=== PATIENT | female | born 1945 | race Caucasian/White ===

== ENCOUNTER 2018-08-07 19:47 | Inpatient (IN) | payer MEDICAID ==
[~2018-08-07] VITALS: Ht 149.9 cm; Wt 95.5 kg
[2018-08-07] MEDS ORDERED: FUROSEMIDE 40 MG INJ IV STA (19:51)
[2018-08-07] MEDS ORDERED: NITROGLYCERIN 2% 1 GM OINT PKT TD STA (19:51)
[2018-08-07] MEDS ORDERED: ALBUTEROL 0.083% (NEB) 2.5 MG/3 ML AMP HHN STA (19:51)
[2018-08-07] MEDS ORDERED: ASPIRIN 81 MG TAB PO STA (19:51)
[2018-08-07 19:57] VITALS: Ht 149.9 cm; Wt 95.5 kg
[2018-08-07] MEDS ORDERED: IPRATROPIUM (NEB) 0.5 MG/2.5 ML AMP HHN ONE (20:00)
[2018-08-07] MEDS ORDERED: NITROGLYCERIN (SL) 0.4 MG TAB SL PRN (20:00)
--- NOTE | 2018-08-07 22:57 | ERD ---
ER Documentation Chief Complaint Chief Complaint SOB progrossing since last night, severe x 15 min, 88% on 2L, 100% w/ HHN HPI Patient is a 72-year-old female with mental retardation, CHF, hypertension, and diabetes who presents with shortness of breath. Please note the history and physical exam is limited secondary to the patient's mental retardation. The patient was brought in by ambulance. She has had 1 hour of sudden onset shortness of breath. She said trouble breathing and has been wheezing. She was given albuterol by paramedics and her oxygen saturation went from 80% to 97%. She was having shortness of breath with minimal exertion as well. She takes Lasix. Upon review of old medical records this is the patient's first visit to the emergency department at [facility]. She does have a primary doctor. ROS All systems reviewed and are negative except as per history of present illness. Allergies Allergies: Coded Allergies: No Known Allergy (Unverified , 08/07/18) PMhx/Soc Positive for MR, CHF, hypertension, and diabetes FmHx Family History: diabetes Physical Exam Vitals Vital Signs Date Temp Pulse Resp B/P (MAP) Pulse Ox O2 O2 Flow FiO2 Time Delivery Rate 08/07/18 40 21:01 08/07/18 120 100 100 20:07 08/07/18 98.0 133 33 137/84 100 19:57 (101) Physical Exam Const: Severe distress Head: Atraumatic Eyes: Normal Conjunctiva ENT: Normal External Ears, Nose and Mouth. Neck: Full range of motion. No meningismus. Resp: Tachypnea with accessory muscle use of belly breathing Cardio: Tachycardic rate without murmur Abd: Soft, non tender, non distended. Normal bowel sounds Skin: No petechiae or rashes Back: No midline or flank tenderness Ext: Pitting edema bilateral lower extremities Neur: Awake Result Diagram: 08/07/18195508/07/181955 Results 24 hrs Laboratory Tests Test 08/07/18 19:56 08/07/18 20:30 White Blood Count 11.4 10^3/ul Red Blood Count 4.52 10^6/ul Hemoglobin 10.4 g/dl Hematocrit 34.6 % Mean Corpuscular Volume 76.5 fl Mean Corpuscular Hemoglobin 23.0 pg Mean Corpuscular Hemoglobin Concent 30.1 g/dl Red Cell Distribution Width 18.6 % Platelet Count 328 10^3/UL Mean Platelet Volume 9.6 fl Immature Granulocytes % 1.100 % Neutrophils % 66.0 % Lymphocytes % 22.8 % Monocytes % 8.6 % Eosinophils % 1.2 % Basophils % 0.3 % Nucleated Red Blood Cells % 0.0 /100WBC Immature Granulocytes # 0.130 10^3/ul Neutrophils # 7.5 10^3/ul Lymphocytes # 2.6 10^3/ul Monocytes # 1.0 10^3/ul Eosinophils # 0.1 10^3/ul Basophils # 0.0 10^3/ul Nucleated Red Blood Cells # 0.0 10^3/ul Sodium Level 141 mmol/L Potassium Level 3.6 mmol/L Chloride Level 98 mmol/L Carbon Dioxide Level 34 mmol/L Anion Gap 9 Blood Urea Nitrogen 14 mg/dl Creatinine 0.52 mg/dl Est Glomerular Filtrat Rate mL/min > 60 mL/min Glucose Level 152 mg/dl Calcium Level 9.2 mg/dl Troponin I < 0.012 ng/ml Blood Gas Specimen Source Blood arterial Arterial Blood Date Drawn 08/07/2018 8:40:56 PM Arterial Blood pH (Temp corrected) 7.290 Arterial Blood pCO2 (Temp correct) 69.6 mmhg Arterial Blood pO2 (Temp corrected) 371.1 mmHG Arterial Blood HCO3 32.7 mmol/L Arterial Blood Base Excess 4.4 mmol/L Arterial Blood Oxygen Saturation 99.7 mmHG Harsha Test N/A Arterial Blood Gas Puncture Site Right Brachial Arterial Blood Carboxyhemoglobin 0.2 % Arterial Blood Methemoglobin 0.6 % Blood Gas A-a O2 Differential 272.3 mmHg Oxyhemoglobin Percent 98.9 % Blood Gas Temperature 37.0 C Blood Gas Respiration Rate 14.0 Blood Gas Actual Respiration Rate 22 Blood Gas Modality MASK - BIPAP FiO2 100.0 % Blood Gas Pressure Support 10 Blood Gas IPAP/EPAP Ratio 15/5 Blood Gas Critical Value Read Back B ZAYRA HEREDIA Blood Gas Notified Whom UP Blood Gas Notified Time 08/07/2018 8:55:46 PM Current Medications Medications Dose Sig/Gio Start Time Status Last (Trade) Ordered Route PRN Stop Time Admin Dose Reason Admin Aspirin 162 mg ONCE STAT 08/07/18 DC 08/07/18 (Aspirin) PO 19:51 21:41 08/07/18 19:53 1 inch ONCE STAT 08/07/18 DC 08/07/18 Nitroglycerin TD 19:51 21:41 08/07/18 19:53 (Nitroglyceri n 2% Oint) 1 tab Q5M UP TO 3 08/07/18 Nitroglycerin DOSES PRN 20:00 SL .CHEST (Nitroglyceri PAIN n (Sl Tab) 0.4 Mg) Furosemide 40 mg ONCE STAT 08/07/18 DC 08/07/18 (Lasix) IV 19:51 21:42 08/07/18 19:53 Albuterol 5 mg ONCE STAT 08/07/18 DC 08/07/18 (Proventil HHN 19:51 20:05 0.083% (Neb)) 08/07/18 19:53 Ipratropium 0.5 mg ONCE ONCE 08/07/18 DC 08/07/18 [place] HHN 20:00 20:05 (Atrovent 08/07/18 20:01 0.02% (Neb)) Ondansetron 4 mg ER BRIDGE 08/07/18 HCl (Zofran PRN IV 23:00 Inj) NAUSEA/VOMITI 08/08/18 22:59 NG 650 mg ER BRIDGE 08/07/18 Acetaminophen PRN PO 23:00 (Tylenol .MILD PAIN 08/08/18 22:59 Tab) 1-3 OR TEMP Procedures/MDM EKG read by me: Rate/Rhythm: Atrial fibrillation with RVR at a rate of 119 Intervals: Normal Impression: A. fib with RVR without ST elevations Chest x-ray shows CHF per radiology. Patient is a 72-year-old female presents with acute congestive heart failure with flash pulmonary edema. The patient needed BiPAP therapy upon arrival. The patient was given aspirin, nitroglycerin, and Lasix. Her respiratory status has improved with BiPAP and medication treatment. The patient will be admitted to the care of Dr. Roque from the panel team to a telemetry inpatient bed. I doubt pneumonia, pneumothorax, pulmonary embolism, or aortic dissection. The patient has a poor prognosis given her age and comorbidities and discussion with family regarding goals of care would be appropriate. Critical Care: Time: 35 minutes excluding all billable procedures. Treatments/Evaluations: Close monitoring and treatment of unstable vital signs, cardiorespiratory, and neurologic status, while maintaining tight balance of fluid, respiratory, and cardiac interventions. Departure Diagnosis: Primary Impression: Respiratory failure Chronicity: acute Respiratory failure complication: hypoxia and hype rcapnia Qualified Codes: J96.01 - Acute respiratory failure with hypoxia; J96.02 - Acute respiratory failure with hypercapnia Additional Impressions: Shortness of breath CHF (congestive heart failure) Heart failure type: unspecified Heart failure chronicity: acute Qualified Codes: I50.9 - Heart failure, unspecified Condition: Serious ALEJA SHAW MD Aug 07, 2018 22:57
[2018-08-07] MEDS ORDERED: ACETAMINOPHEN 325 MG TAB PO PRN (23:00)
[2018-08-07] MEDS ORDERED: ONDANSETRON 4 MG INJ IV PRN (23:00)
--- NOTE | 2018-08-07 23:47 | HP ---
Date/Time of Note Date/Time of Note DATE: 08/07/18 TIME: 23:47 Assessment/Plan VTE Prophylaxis Pharmacological prophylaxis: heparin Lines/Catheters IV Catheter Type (from Nrsg): Saline Lock Urinary Cath still in place: Yes Reason Cath still needed: terminal illness/intractable pain Assessment/Plan Assessment/Plan 1. Hypercapnic respiratory failure: Secondary to CHF exacerbation. Underlying pneumonia possibility -Currently on BiPAP. Continue -Repeat ABG -Diuresis -2D echo -Pulmonary consult 2. Developmental delay: Patient has a label sewer -Supportive care 3. Morbid obesity with a BMI of 42: Patient needs to lose weight. Patient had a label sewer Result Diagram: 08/07/18195508/07/181955 Results 24hrs Laboratory Tests Test 08/07/18 19:56 08/07/18 20:30 White Blood Count 11.4 H Red Blood Count 4.52 Hemoglobin 10.4 L Hematocrit 34.6 L Mean Corpuscular Volume 76.5 L Mean Corpuscular Hemoglobin 23.0 L Mean Corpuscular Hemoglobin Concent 30.1 L Red Cell Distribution Width 18.6 H Platelet Count 328 Mean Platelet Volume 9.6 Immature Granulocytes % 1.100 H Neutrophils % 66.0 Lymphocytes % 22.8 Monocytes % 8.6 Eosinophils % 1.2 Basophils % 0.3 Nucleated Red Blood Cells % 0.0 Immature Granulocytes # 0.130 H Neutrophils # 7.5 Lymphocytes # 2.6 Monocytes # 1.0 H Eosinophils # 0.1 Basophils # 0.0 Nucleated Red Blood Cells # 0.0 Sodium Level 141 Potassium Level 3.6 Chloride Level 98 Carbon Dioxide Level 34 H Anion Gap 9 Blood Urea Nitrogen 14 Creatinine 0.52 Est Glomerular Filtrat Rate mL/min > 60 Glucose Level 152 Calcium Level 9.2 Troponin I < 0.012 Blood Gas Specimen Source Blood arterial Arterial Blood Date Drawn 08/07/2018 8:40:56 PM Arterial Blood pH (Temp corrected) 7.290 *L Arterial Blood pCO2 (Temp correct) 69.6 H Arterial Blood pO2 (Temp corrected) 371.1 H Arterial Blood HCO3 32.7 H Arterial Blood Base Excess 4.4 H Arterial Blood Oxygen Saturation 99.7 H Harsha Test N/A Arterial Blood Gas Puncture Site Right Brachial Arterial Blood Carboxyhemoglobin 0.2 Arterial Blood Methemoglobin 0.6 Blood Gas A-a O2 Differential 272.3 H Oxyhemoglobin Percent 98.9 Blood Gas Temperature 37.0 Blood Gas Respiration Rate 14.0 Blood Gas Actual Respiration Rate 22 Blood Gas Modality MASK - BIPAP FiO2 100.0 Blood Gas Pressure Support 10 Blood Gas IPAP/EPAP Ratio 15/5 Blood Gas Critical Value Read Back Juani IVERSON MD Blood Gas Notified Whom UP Blood Gas Notified Time 08/07/2018 8:55:46 PM HPI/ROS Admit Date/Time Admit Date/Time Hx of Present Illness This is a 72-year-old morbidly obese female with history of developmental delay and hypertension who was brought to the ER for shortness of breath. Symptoms started a few hours prior to arrival to the ER. Patient is currently on a BiPAP and as such information is gathered from chart review and from the ER physician. She did however indicated that her BiPAP is causing her facial discomfort. In the ER, ABG shows pH of 7.29, PCO2 of 70. Chest x-ray shows cardiomegaly with diffuse bilateral interstitial opacities, likely representing pulmonary edema. PMH/Family/Social Past Medical History Medical History: other (See HPI) Medications Current Medications Nitroglycerin (Nitroglycerin (Sl Tab) 0.4 Mg) 1 tab Q5M UP TO 3 DOSES PRN SL .CHEST PAIN; Start 08/07/18 at 20:00 Ondansetron HCl (Zofran Inj) 4 mg ER BRIDGE PRN IV NAUSEA/VOMITING; Start 08/07/18 at 23:00; Stop 08/08/18 at 22:59 Acetaminophen (Tylenol Tab) 650 mg ER BRIDGE PRN PO .MILD PAIN 1-3 OR TEMP; Start 08/07/18 at 23:00; Stop 08/08/18 at 22:59 Coded Allergies: No Known Allergy (Unverified , 08/07/18) Past Surgical History Past Surgical Hx: other (See HPI) Family History Significant Family History: no pertinent family hx Social History Alcohol Use: other (Unknown) Smoking Status: Unknown if ever smoked Drug Use: other (Unknown) Exam/Review of Systems Vital Signs Vitals Vital Signs Date Temp Pulse Resp B/P (MAP) Pulse Ox O2 O2 Flow FiO2 Time Delivery Rate 08/07/18 98.0 121 26 118/64 100 BIPAP 23:00 (82) 08/07/18 40 21:01 Exam Constitutional: other (Morbidly obese female lying in bed. She is on BiPAP) Head: normocephalic, atraumatic Eyes: EOMI, PERRL Respiratory: diminished breath sounds, wheezing Cardiovascular: other (Tachycardic regular rhythm) Gastrointestinal: soft Extremities: edema ISACC CONTRERAS MD Aug 07, 2018 23:47
[2018-08-08] VITALS (14 sets, daily range): BP systolic 114–149; BP diastolic 56–82; PULSE 67–128; RESP 18–20
[2018-08-08] MEDS ORDERED: NACL 0.9% 3 ML SYG IV SCH
[2018-08-08] MEDS ORDERED: NITROGLYCERIN (SL) 0.4 MG TAB SL PRN
[2018-08-08] MEDS ORDERED: ASPIRIN 81 MG TAB PO SCH (09:00)
[2018-08-08] MEDS ORDERED: FUROSEMIDE 40 MG INJ IV SCH (09:00)
[2018-08-08] MEDS: LEVOFLOXACIN 500MG/D5W (PMX) 100 ML IVPB SCH (10:44)
[2018-08-08] MEDS: HEPARIN 5,000 UNIT/1 ML VIAL SC SCH ×2 (10:55→20:26)
[2018-08-08] MEDS: INSULIN ASPART [NOVOLOG] 3 ML PEN SC SCH ×3 (11:27→21:05)
[2018-08-08] MEDS ORDERED: GLUCOSE GEL 15 GRAM TUBE BUCCAL PRN (11:30)
[2018-08-08] MEDS ORDERED: DEXTROSE 50% 50 ML SYRINGE IV PRN ×2 (11:30)
[2018-08-08] MEDS ORDERED: GLUCOSE GEL 15 GRAM TUBE PO PRN ×2 (11:30)
[2018-08-08] MEDS ORDERED: GLUCAGON 1 MG INJ IM PRN (11:30)
[2018-08-08] MEDS ORDERED: RIVA20TA5 PO (12:13)
[2018-08-08] MEDS ORDERED: LOSA100T15 PO (12:13)
[2018-08-08] MEDS ORDERED: AMLO5TAB4 PO (12:14)
[2018-08-08] MEDS ORDERED: FURO20TA3 PO (12:14)
[2018-08-08] MEDS ORDERED: ATOR-2 PO (12:15)
[2018-08-08] MEDS ORDERED: ESOM20CA PO (12:15)
[2018-08-08] MEDS ORDERED: HYDR-3671 PO (12:16)
[2018-08-08] MEDS ORDERED: METF100010 PO (12:16)
[2018-08-08] MEDS ORDERED: METO-407 PO (12:17)
[2018-08-08] MEDS ORDERED: NOVO7030 SC (12:18)
--- NOTE | 2018-08-08 13:35 | PN ---
Date/Time of Note Date/Time of Note DATE: 08/08/18 TIME: 13:35 Assessment/Plan VTE Prophylaxis Risk score (from Nsg)>0 risk: 7 Pharmacological prophylaxis: heparin Lines/Catheters IV Catheter Type (from Nrsg): Saline Lock Urinary Cath still in place: Yes Reason Cath still needed: other (indicate) Assessment/Plan Hospital Course 72-year-old morbidly obese female who was brought in from home via ambulance because of shortness of breath and is admitted and managed as follows: 1. Acute hypercapnic respiratory failure: Improved 2. Acute CHF exacerbation, acute on chronic, diastolic, preserved ejection fraction 3. Atrial fibrillation with improved rate control 4. Hypertension 5. Diabetes 6. Developmental delay 7. Chronic debility, ambulates with walker 8. Morbid obesity 9. 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 Xarelto therapy 11. Hypochromasia microcytosis, rule out iron deficiency Plan: continue diuresis continue to wean O2 advance diet ambulate supportive care of comorbidities outpatient sleep study Further interventions per course Result Diagram: 08/08/18 0530 08/08/18 0530 Results 24hrs Laboratory Tests Test 08/07/18 19:56 08/07/18 20:30 08/08/18 02:00 08/08/18 02:05 White Blood 11.4 H Count Red Blood Count 4.52 Hemoglobin 10.4 L Hematocrit 34.6 L Mean Corpuscular 76.5 L Volume Mean Corpuscular 23.0 L Hemoglobin Mean Corpuscular 30.1 L Hemoglobin Nohelia nt Red Cell 18.6 H Distribution Width Platelet Count 328 Mean Platelet 9.6 Volume Immature 1.100 H Granulocytes % Neutrophils % 66.0 Lymphocytes % 22.8 Monocytes % 8.6 Eosinophils % 1.2 Basophils % 0.3 Nucleated Red 0.0 Blood Cells % Immature 0.130 H Granulocytes # Neutrophils # 7.5 Lymphocytes # 2.6 Monocytes # 1.0 H Eosinophils # 0.1 Basophils # 0.0 Nucleated Red 0.0 Blood Cells # Sodium Level 141 Potassium Level 3.6 Chloride Level 98 Carbon Dioxide 34 H Level Anion Gap 9 Blood Urea 14 Nitrogen Creatinine 0.52 Est Glomerular > 60 Filtrat Rate mL/min Glucose Level 152 Calcium Level 9.2 Troponin I < 0.012 < 0.012 Blood Gas Blood arterial Blood arterial Specimen Source Arterial Blood 08/07/2018 8:40: 08/08/2018 2:15: Date Drawn 56 PM 32 AM Arterial Blood 7.290 *L 7.364 pH (Temp corrected) Arterial Blood 69.6 H 61.4 H pCO2 (Temp correct) Arterial Blood 371.1 H 132.5 H pO2 (Temp corrected) Arterial Blood 32.7 H 34.2 H HCO3 Arterial Blood 4.4 H 7.3 H Base Excess Arterial Blood 99.7 H 98.3 H Oxygen Saturatio n Harsha Test N/A N/A Arterial Blood Right Brachial Right Brachial Gas Puncture Site Arterial 0.2 0.1 Blood Carboxyhem oglobin Arterial Blood 0.6 0.4 Methemoglobin Blood Gas A-a O2 272.3 H 82.1 H Differential Oxyhemoglobin 98.9 97.8 Percent Blood Gas 37.0 37.0 Temperature Blood Gas 14.0 18.0 Respiration Rate Blood Gas Actual 22 23 Respiration Rate Blood Gas MASK - BIPAP MASK - BIPAP Modality FiO2 100.0 40.0 Blood Gas 10 13 Pressure Support Blood Gas 15/5 18/5 IPAP/EPAP Ratio Blood Gas B ZAYRA HEREDIA Critical Value Read Back Blood Gas UP UP Notified Whom Blood Gas 08/07/2018 8:55: 08/08/2018 2:29: Notified Time 46 PM 27 AM Creatine Kinase < 20 L Creatine Kinase Index Creatinine 0.27 Kinase MB (Mass) Test 08/08/18 05:30 08/08/18 10:27 08/08/18 11:17 White Blood 9.4 Count Red Blood Count 4.18 L Hemoglobin 9.7 L Hematocrit 31.5 L Mean Corpuscular 75.4 L Volume Mean Corpuscular 23.2 L Hemoglobin Mean Corpuscular 30.8 L Hemoglobin Nohelia nt Red Cell 18.6 H Distribution Width Platelet Count 301 Mean Platelet 10.1 Volume Immature 0.200 Granulocytes % Neutrophils % 70.3 Lymphocytes % 18.4 Monocytes % 9.4 Eosinophils % 1.4 Basophils % 0.3 Nucleated Red 0.0 Blood Cells % Immature 0.020 Granulocytes # Neutrophils # 6.6 Lymphocytes # 1.7 Monocytes # 0.9 Eosinophils # 0.1 Basophils # 0.0 Nucleated Red 0.0 Blood Cells # Sodium Level 142 Potassium Level 3.8 Chloride Level 98 Carbon Dioxide 37 H Level Anion Gap 7 Blood Urea 14 Nitrogen Creatinine 0.47 Est Glomerular > 60 Filtrat Rate mL/min Glucose Level 96 # Hemoglobin A1c 7.6 H Calcium Level 9.0 Magnesium Level 1.4 L Total Bilirubin 0.5 Direct Bilirubin 0.00 Indirect 0.5 Bilirubin Aspartate Amino 14 L Transf (AST/SGOT ) Alanine 19 Aminotransferase (ALT/SGPT) Alkaline 50 Phosphatase Total Protein 6.0 L Albumin 3.5 Globulin 2.50 Albumin/Globulin 1.40 Ratio Triglycerides 88 Level Cholesterol 101 Level LDL Cholesterol, 42 Calculated HDL Cholesterol 41 Cholesterol/HDL 2.4 Ratio Thyroid 2.490 Stimulating Hormone (TSH) Creatine Kinase < 20 L Creatine Kinase Index Creatinine < 0.22 Kinase MB (Mass) Troponin I < 0.012 Bedside Glucose 125 Subjective 24 Hr Interval Summary Free Text/Dictation anxious ++, now off bipap, wants to eat Exam/Review of Systems Exam Vitals Vital Signs Date Temp Pulse Resp B/P (MAP) Pulse Ox O2 O2 Flow FiO2 Time Delivery Rate 08/08/18 98.9 120 20 149/82 98 11:27 (104) 08/08/18 4.0 07:41 08/08/18 50 05:27 08/08/18 BIPAP 03:15 Intake and Output 08/07/18 08/07/18 08/08/18 1414:59 22:59 06:59 IntakeIntake Total 400 ml OutputOutput Total 1500 ml BalanceBalance -1100 ml Constitutional: alert, obese Head: normocephalic Respiratory: crackles/rales, diminished breath sounds; No labored breathing Extremities: edema Results Results 24hrs Laboratory Tests Test 08/07/18 19:56 08/07/18 20:30 08/08/18 02:00 08/08/18 02:05 White Blood 11.4 H Count Red Blood Count 4.52 Hemoglobin 10.4 L Hematocrit 34.6 L Mean Corpuscular 76.5 L Volume Mean Corpuscular 23.0 L Hemoglobin Mean Corpuscular 30.1 L Hemoglobin Nohelia nt Red Cell 18.6 H Distribution Width Platelet Count 328 Mean Platelet 9.6 Volume Immature 1.100 H Granulocytes % Neutrophils % 66.0 Lymphocytes % 22.8 Monocytes % 8.6 Eosinophils % 1.2 Basophils % 0.3 Nucleated Red 0.0 Blood Cells % Immature 0.130 H Granulocytes # Neutrophils # 7.5 Lymphocytes # 2.6 Monocytes # 1.0 H Eosinophils # 0.1 Basophils # 0.0 Nucleated Red 0.0 Blood Cells # Sodium Level 141 Potassium Level 3.6 Chloride Level 98 Carbon Dioxide 34 H Level Anion Gap 9 Blood Urea 14 Nitrogen Creatinine 0.52 Est Glomerular > 60 Filtrat Rate mL/min Glucose Level 152 Calcium Level 9.2 Troponin I < 0.012 < 0.012 Blood Gas Blood arterial Blood arterial Specimen Source Arterial Blood 08/07/2018 8:40: 08/08/2018 2:15: Date Drawn 56 PM 32 AM Arterial Blood 7.290 *L 7.364 pH (Temp corrected) Arterial Blood 69.6 H 61.4 H pCO2 (Temp correct) Arterial Blood 371.1 H 132.5 H pO2 (Temp corrected) Arterial Blood 32.7 H 34.2 H HCO3 Arterial Blood 4.4 H 7.3 H Base Excess Arterial Blood 99.7 H 98.3 H Oxygen Saturatio n Harsha Test N/A N/A Arterial Blood Right Brachial Right Brachial Gas Puncture Site Arterial 0.2 0.1 Blood Carboxyhem oglobin Arterial Blood 0.6 0.4 Methemoglobin Blood Gas A-a O2 272.3 H 82.1 H Differential Oxyhemoglobin 98.9 97.8 Percent Blood Gas 37.0 37.0 Temperature Blood Gas 14.0 18.0 Respiration Rate Blood Gas Actual 22 23 Respiration Rate Blood Gas MASK - BIPAP MASK - BIPAP Modality FiO2 100.0 40.0 Blood Gas 10 13 Pressure Support Blood Gas 15/5 18/5 IPAP/EPAP Ratio Blood Gas B ZAYRA HEREDIA Critical Value Read Back Blood Gas UP UP Notified Whom Blood Gas 08/07/2018 8:55: 08/08/2018 2:29: Notified Time 46 PM 27 AM Creatine Kinase < 20 L Creatine Kinase Index Creatinine 0.27 Kinase MB (Mass) Test 08/08/18 05:30 08/08/18 10:27 08/08/18 11:17 White Blood 9.4 Count Red Blood Count 4.18 L Hemoglobin 9.7 L Hematocrit 31.5 L Mean Corpuscular 75.4 L Volume Mean Corpuscular 23.2 L Hemoglobin Mean Corpuscular 30.8 L Hemoglobin Nohelia nt Red Cell 18.6 H Distribution Width Platelet Count 301 Mean Platelet 10.1 Volume Immature 0.200 Granulocytes % Neutrophils % 70.3 Lymphocytes % 18.4 Monocytes % 9.4 Eosinophils % 1.4 Basophils % 0.3 Nucleated Red 0.0 Blood Cells % Immature 0.020 Granulocytes # Neutrophils # 6.6 Lymphocytes # 1.7 Monocytes # 0.9 Eosinophils # 0.1 Basophils # 0.0 Nucleated Red 0.0 Blood Cells # Sodium Level 142 Potassium Level 3.8 Chloride Level 98 Carbon Dioxide 37 H Level Anion Gap 7 Blood Urea 14 Nitrogen Creatinine 0.47 Est Glomerular > 60 Filtrat Rate mL/min Glucose Level 96 # Hemoglobin A1c 7.6 H Calcium Level 9.0 Magnesium Level 1.4 L Total Bilirubin 0.5 Direct Bilirubin 0.00 Indirect 0.5 Bilirubin Aspartate Amino 14 L Transf (AST/SGOT ) Alanine 19 Aminotransferase (ALT/SGPT) Alkaline 50 Phosphatase Total Protein 6.0 L Albumin 3.5 Globulin 2.50 Albumin/Globulin 1.40 Ratio Triglycerides 88 Level Cholesterol 101 Level LDL Cholesterol, 42 Calculated HDL Cholesterol 41 Cholesterol/HDL 2.4 Ratio Thyroid 2.490 Stimulating Hormone (TSH) Creatine Kinase < 20 L Creatine Kinase Index Creatinine < 0.22 Kinase MB (Mass) Troponin I < 0.012 Bedside Glucose 125 Medications Medication Current Medications Ondansetron HCl (Zofran Inj) 4 mg ER BRIDGE PRN IV NAUSEA/VOMITING; Start 08/07/18 at 23:00; Stop 08/08/18 at 22:59 IV Flush (NS 3 ml) 3 ml PER PROTOCOL IV ; Start 08/08/18 at 00:00 Aspirin (Aspirin) 81 mg DAILY PO ; Start 08/08/18 at 09:00 Nitroglycerin (Nitroglycerin (Sl Tab) 0.4 Mg) 1 tab Q5M PRN SL .CHEST PAIN; Start 08/08/18 at 00:00 Acetaminophen (Tylenol Tab) 650 mg Q6H PRN PO .PAIN 1-3 OR TEMP; Start 08/08/18 at 00:00 Heparin Sodium (Porcine) (Heparin (5000 Units/1ml)) 5,000 unit Q12 SC Last administered on 08/08/18at 10:55; Admin Dose 5,000 UNIT; Start 08/08/18 at 09:00 Ipratropium [place] (Atrovent 0.02% (Neb)) 0.5 mg Q2H RESP THERAPY PRN NEB SHORTNESS OF BREATH; Start 08/08/18 at 00:00 Levofloxacin/ Dextrose 100 ml @ 100 mls/hr Q24H IVPB Last administered on 08/08/18at 10:44; Admin Dose 100 MLS/HR; Start 08/08/18 at 08:30 Furosemide (Lasix) 40 mg BID IV ; Start 08/08/18 at 21:00 Diagnostic Test (Pha) (Accu-Chek) 1 ea 02 XX ; Start 08/09/18 at 02:00 Insulin Aspart (Novolog Insulin Pen) NOVOLOG *MILD* ALGORITHM WITH MEALS BEDTIME SC ; Start 08/08/18 at 12:00 Miscellaneous Information 1 ea NOTE XX ; Start 08/08/18 at 11:30 Glucose (Glutose) 15 gm Q15M PRN PO DECREASED GLUCOSE; Start 08/08/18 at 11:30 Glucose (Glutose) 22.5 gm Q15M PRN PO DECREASED GLUCOSE; Start 08/08/18 at 11:30 Dextrose (D50w Syringe) 25 ml Q15M PRN IV DECREASED GLUCOSE; Start 08/08/18 at 11:30 Dextrose (D50w Syringe) 50 ml Q15M PRN IV DECREASED GLUCOSE; Start 08/08/18 at 11:30 Glucagon (Glucagen) 1 mg Q15M PRN IM DECREASED GLUCOSE; Start 08/08/18 at 11:30 Glucose (Glutose) 15 gm Q15M PRN BUCCAL DECREASED GLUCOSE; Start 08/08/18 at 11:30 MAC FRYE Aug 08, 2018 13:35
[2018-08-08] MEDS: METOPROLOL 100 MG TAB PO SCH ×2 (14:32→20:24)
--- NOTE | 2018-08-08 16:52 | RADRPT ---
Echocardiogram Report Patient Name: DANIELLE GREYPatient ID: [id number] : 1945 (72y 8m)Study Date: 08/08/2018 7:50:53 AM Gender: FAccession #: [id number] Tech: Taryn Montilla [facility] Location: [facility] Ref.Physician: ISACC CONTRERAS Height(Cm): BSA: Weight(Kg): Quality: Technically Difficult StudyAccount #: Procedures: Echocardiographic Report: Transthoracic echocardiogram with complete 2D, M-Mode, and doppler examination. Indications: Congestive Heart Failure. Measurements: 2D/M Mode Doppler Measurement Value Normal Range Measurement Value Normal Range LVIDd 2D 4.1 [ 3.8 - 5.2 ] cm AV Peak Kalpesh 1.3 [ 100.0 - 170.0 ] cm/sec LVIDs 2D 3.2 [ 2.2 - 3.5 ] cm AV Peak PG 7.0 [ 2.0 - 9.0 ] mmHg LVPWd 2D 1.0 [ 0.6 - 0.9 ] cm LVOT Peak Kalpesh 1.0 [ 70.0 - 110.0 ] cm/sec IVSd 2D 1.2 [ 0.6 - 0.9 ] cm LVOT Peak PG 4.0 [ 2.0 - 6.0 ] mmHg AoR Diam 2D 2.8 [ 2.3 - 3.1 ] cm TR Peak Kalpesh 3.0 [ 100.0 - 280.0 ] cm/sec EDV 2D 72.1 [ 46.0 - 106.0 ] ml TR Peak PG 35.0 mmHg ESV 2D 42.2 [ 14.0 - 42.0 ] ml RVSP 45.0 [ 10.0 - 36.0 ] mmHg EF 2D 41.5 [ 54.0 - 74.0 ] percent RA Pressure 10.0 mmHg LA Dimen 2D 4.4 [ 2.7 - 3.8 ] cm Findings: Left Ventricle: Normal left ventricular systolic function. Normal left ventricular cavity size. Mild concentric left ventricular hypertrophy. Ejection fraction is visually estimated at 60 %. Abnormal Diastolic Function. Right Ventricle: Normal right ventricular size. Normal right ventricular systolic function. Left Atrium: There is mild enlargement of left atrium. Right Atrium: The right atrium is normal in size. Mitral Valve: Normal appearance and function of the mitral valve with trace physiologic regurgitation. Aortic Valve: Normal appearance of the aortic valve. No significant aortic stenosis or insufficiency. Tricuspid Valve: Normal appearance of the tricuspid valve. Estimated peak PA systolic pressure 45 mmHg. There is mild tricuspid regurgitation. Pulmonic Valve: Normal pulmonic valve appearance. Pericardium: Normal pericardium with no significant pericardial effusion. Aorta: Normal aortic root. IVC: Dilated IVC without respiratory collapse consistent with elevated right atrial pressure. Conclusions: There is mild enlargement of left atrium. Normal left ventricular systolic function. Normal left ventricular cavity size. Mild concentric left ventricular hypertrophy. Ejection fraction is visually estimated at 60 %. Abnormal Diastolic Function. Normal appearance and function of the mitral valve with trace physiologic regurgitation. Normal appearance of the aortic valve. No significant aortic stenosis or insufficiency. Normal appearance of the tricuspid valve. Estimated peak PA systolic pressure 45 mmHg. There is mild tricuspid regurgitation. Dilated IVC without respiratory collapse consistent with elevated right atrial pressure. suboptimal study. Electronically Signed By: Andrei Soto 2018-08-08 16:51:30 PDT
[2018-08-08] MEDS: RIVAROXABAN 20 MG TABLET PO SCH (17:04)
--- NOTE | 2018-08-08 18:15 | CONS ---
Assessment/Plan Assessment/Plan Hospital Course (Demo Recall) Acute hypercapnic hypoxemic respiratory failure Likely obstructive sleep apnea Congestive heart failure acute on chronic secondary diastolic heart failure Atrial fibrillation Hypertension Diabetes Developmental delay Recommendations: Stop amlodipine. Instead I will put her on Cardizem to control the heart rate better IV Lasix has been initiated. Potassium to be replaced as needed Consider nightly CPAP Diabetic control to be continued We will monitor on telemetry Continue with [place] Thank you for this referral. We will continue to follow along with you EBENEZER GUTIERREZ MD [facility] Consultation Date/Type/Reason Admit Date/Time Date of Consultation: Aug 08, 2018 Type of Consult Cardiology Reason for Consultation CHF AFIB Requesting Provider: MAC FRYE Date/Time of Note DATE: 08/08/18 TIME: 18:09 Hx of Present Illness Interventional cardiology consultation note Chief complaint: Shortness of breath Reason for consult: Congestive heart failure atrial fibrillation History of present illness: Thank you for this referral. History was obtained from the patient's family mostly who are good historian. Patient also has developmental delay is unable to provide reliable history. Discussed staff and physicians as well This is a 9-year-old female with history of developmental delay, likely sleep apnea, atrial fibrillation, hypertension, diabetes who was brought in because of increasing shortness of breath. Patient was noted to have severe hypercapnic respiratory failure has been placed on BiPAP and currently doing better. No reports of any chest pain or pressure though. No reports of any palpitation but it is difficult to get a good history from her due to her mental status Allergies: No known drug allergies Medications were reviewed as per medical reconciliation sheet Family history: No reported history of any coronary artery disease Social history: Patient is mostly bedbound and has been supported by a very supportive family. She does not smoke or drink Past medical history: Developmental delay since childhood, diabetes hypertension morbid obesity atrial fibrillation Dyslipidemia Review of system: Patient denies all others except for above-mentioned Past Medical History Home Meds Reported Medications Insulin Isophan/Regular (Humulin 70/30) 100 Units/Ml Susp, 40 UNIT SC AC BREAKFAST DINNER, EA 08/08/18 Metoprolol Tartrate* (Lopressor*) 100 Mg Tablet, 100 MG PO BID, #60 TAB 08/08/18 Hydralazine Hcl* (Hydralazine Hcl*) 25 Mg Tab, 25 MG PO BID, #60 TAB 08/08/18 Metformin Hcl* (Metformin Hcl*) 1,000 Mg Tablet, 1000 MG PO WITH BREAKFAST DINNE, #60 TAB 08/08/18 Atorvastatin* (Atorvastatin*) 80 Mg Tablet, 80 MG PO QHS, #30 TAB 08/08/18 Esomeprazole Mag Trihydrate (Nexium) 20 Mg Capsule.dr, 20 MG PO DAILY, #30 CAP 08/08/18 Furosemide* (Furosemide*) 20 Mg Tablet, 20 MG PO DAILY, #60 TAB 08/08/18 Amlodipine Besylate* (Norvasc*) 5 Mg Tablet, 5 MG PO DAILY, TAB 08/08/18 Losartan Potassium* (Losartan Potassium*) 100 Mg Tablet, 100 MG PO DAILY, TAB 08/08/18 Rivaroxaban* (Xarelto*) 20 Mg Tablet, 20 MG PO WITH DINNER, TAB 08/08/18 Medications Current Medications Ondansetron HCl (Zofran Inj) 4 mg ER BRIDGE PRN IV NAUSEA/VOMITING; Start 08/07/18 at 23:00; Stop 08/08/18 at 22:59 IV Flush (NS 3 ml) 3 ml PER PROTOCOL IV ; Start 08/08/18 at 00:00 Aspirin (Aspirin) 81 mg DAILY PO ; Start 08/08/18 at 09:00 Nitroglycerin (Nitroglycerin (Sl Tab) 0.4 Mg) 1 tab Q5M PRN SL .CHEST PAIN; Start 08/08/18 at 00:00 Acetaminophen (Tylenol Tab) 650 mg Q6H PRN PO .PAIN 1-3 OR TEMP; Start 08/08/18 at 00:00 Heparin Sodium (Porcine) (Heparin (5000 Units/1ml)) 5,000 unit Q12 SC Last administered on 08/08/18at 10:55; Admin Dose 5,000 UNIT; Start 08/08/18 at 09:00 Ipratropium [place] (Atrovent 0.02% (Neb)) 0.5 mg Q2H RESP THERAPY PRN NEB SHORTNESS OF BREATH; Start 08/08/18 at 00:00 Levofloxacin/ Dextrose 100 ml @ 100 mls/hr Q24H IVPB Last administered on 08/08/18at 10:44; Admin Dose 100 MLS/HR; Start 08/08/18 at 08:30 Furosemide (Lasix) 40 mg BID IV ; Start 08/08/18 at 21:00 Diagnostic Test (Pha) (Accu-Chek) 1 ea 02 XX ; Start 08/09/18 at 02:00 Insulin Aspart (Novolog Insulin Pen) NOVOLOG *MILD* ALGORITHM WITH MEALS BEDTIME SC Last administered on 08/08/18at 17:10; Admin Dose 3 UNIT; Start 08/08/18 at 12:00 Miscellaneous Information 1 ea NOTE XX ; Start 08/08/18 at 11:30 Glucose (Glutose) 15 gm Q15M PRN PO DECREASED GLUCOSE; Start 08/08/18 at 11:30 Glucose (Glutose) 22.5 gm Q15M PRN PO DECREASED GLUCOSE; Start 08/08/18 at 11:30 Dextrose (D50w Syringe) 25 ml Q15M PRN IV DECREASED GLUCOSE; Start 08/08/18 at 11:30 Dextrose (D50w Syringe) 50 ml Q15M PRN IV DECREASED GLUCOSE; Start 08/08/18 at 11:30 Glucagon (Glucagen) 1 mg Q15M PRN IM DECREASED GLUCOSE; Start 08/08/18 at 11:30 Glucose (Glutose) 15 gm Q15M PRN BUCCAL DECREASED GLUCOSE; Start 08/08/18 at 11:30 Amlodipine Besylate (Norvasc) 5 mg DAILY PO ; Start 08/09/18 at 09:00 Atorvastatin Calcium (Lipitor) 80 mg QHS PO ; Start 08/08/18 at 21:00 Metoprolol Tartrate (Lopressor) 100 mg BID PO Last administered on 08/08/18at 14:32; Admin Dose 100 MG; Start 08/08/18 at 14:00 Rivaroxaban (Xarelto) 20 mg WITH DINNER PO Last administered on 08/08/18at 17:04; Admin Dose 20 MG; Start 08/08/18 at 18:00 Pantoprazole (Protonix Tab) 40 mg DAILY@06 PO ; Start 08/09/18 at 06:00 Allergies: Coded Allergies: No Known Allergy (Unverified , 08/08/18) Past Surgical History Past Surgical Hx: other (See HPI) Social History Alcohol Use: other (Unknown) Smoking Status: Unknown if ever smoked Drug Use: other (Unknown) Exam/Review of Systems Vital Signs Vitals Vital Signs Date Temp Pulse Resp B/P (MAP) Pulse Ox O2 O2 Flow FiO2 Time Delivery Rate 08/08/18 114 16:01 08/08/18 98.6 18 133/75 95 15:37 (94) 08/08/18 4.0 07:41 08/08/18 50 05:27 08/08/18 BIPAP 03:15 Intake and Output 08/07/18 08/07/18 08/08/18 1414:59 22:59 06:59 IntakeIntake Total 400 ml OutputOutput Total 1500 ml BalanceBalance -1100 ml Exam Exam General: Obese female in no acute distress HEENT: NC/AT. pupils are equal. round. NECK: Unable to assess for JVD. no stridor. CV: Irregularly irregular systolic murmur; no gallop or rubs. PULM: no wheezing . mild rhonchi. GI: SOFT, NT, ND, no rebound or guarding Extremity: +B/L LE edema. no clubbing. neuro: awake and alert, OX2. Psych: calm and pleasant rectal: deferred EKG showed atrial fibrillation. Low voltage. Echocardiogram was personally reviewed which shows: There is mild enlargement of left atrium. Normal left ventricular systolic function. Normal left ventricular cavity size. Mild concentric left ventricular hypertrophy. Ejection fraction is visually estimated at 60 %. Abnormal Diastolic Function. Normal appearance and function of the mitral valve with trace physiologic regurgitation. Normal appearance of the aortic valve. No significant aortic stenosis or insufficiency. Normal appearance of the tricuspid valve. Estimated peak PA systolic pressure 45 mmHg. There is mild tricuspid regurgitation. Dilated IVC without respiratory collapse consistent with elevated right atrial pressure. Labs Result Diagram: 08/08/18 0530 08/08/18 0530 Results 24hrs Laboratory Tests Test 08/07/18 19:56 08/07/18 20:30 08/08/18 02:00 08/08/18 02:05 White Blood 11.4 H Count Red Blood Count 4.52 Hemoglobin 10.4 L Hematocrit 34.6 L Mean Corpuscular 76.5 L Volume Mean Corpuscular 23.0 L Hemoglobin Mean Corpuscular 30.1 L Hemoglobin Nohelia nt Red Cell 18.6 H Distribution Width Platelet Count 328 Mean Platelet 9.6 Volume Immature 1.100 H Granulocytes % Neutrophils % 66.0 Lymphocytes % 22.8 Monocytes % 8.6 Eosinophils % 1.2 Basophils % 0.3 Nucleated Red 0.0 Blood Cells % Immature 0.130 H Granulocytes # Neutrophils # 7.5 Lymphocytes # 2.6 Monocytes # 1.0 H Eosinophils # 0.1 Basophils # 0.0 Nucleated Red 0.0 Blood Cells # Sodium Level 141 Potassium Level 3.6 Chloride Level 98 Carbon Dioxide 34 H Level Anion Gap 9 Blood Urea 14 Nitrogen Creatinine 0.52 Est Glomerular > 60 Filtrat Rate mL/min Glucose Level 152 Calcium Level 9.2 Troponin I < 0.012 < 0.012 Blood Gas Blood arterial Blood arterial Specimen Source Arterial Blood 08/07/2018 8:40: 08/08/2018 2:15: Date Drawn 56 PM 32 AM Arterial Blood 7.290 *L 7.364 pH (Temp corrected) Arterial Blood 69.6 H 61.4 H pCO2 (Temp correct) Arterial Blood 371.1 H 132.5 H pO2 (Temp corrected) Arterial Blood 32.7 H 34.2 H HCO3 Arterial Blood 4.4 H 7.3 H Base Excess Arterial Blood 99.7 H 98.3 H Oxygen Saturatio n Harsha Test N/A N/A Arterial Blood Right Brachial Right Brachial Gas Puncture Site Arterial 0.2 0.1 Blood Carboxyhem oglobin Arterial Blood 0.6 0.4 Methemoglobin Blood Gas A-a O2 272.3 H 82.1 H Differential Oxyhemoglobin 98.9 97.8 Percent Blood Gas 37.0 37.0 Temperature Blood Gas 14.0 18.0 Respiration Rate Blood Gas Actual 22 23 Respiration Rate Blood Gas MASK - BIPAP MASK - BIPAP Modality FiO2 100.0 40.0 Blood Gas 10 13 Pressure Support Blood Gas 15/5 18/5 IPAP/EPAP Ratio Blood Gas B ZAYRA HEREDIA Critical Value Read Back Blood Gas UP UP Notified Whom Blood Gas 08/07/2018 8:55: 08/08/2018 2:29: Notified Time 46 PM 27 AM Creatine Kinase < 20 L Creatine Kinase Index Creatinine 0.27 Kinase MB (Mass) Test 08/08/18 05:30 08/08/18 10:27 08/08/18 11:17 08/08/18 17:04 White Blood 9.4 Count Red Blood Count 4.18 L Hemoglobin 9.7 L Hematocrit 31.5 L Mean Corpuscular 75.4 L Volume Mean Corpuscular 23.2 L Hemoglobin Mean Corpuscular 30.8 L Hemoglobin Nohelia nt Red Cell 18.6 H Distribution Width Platelet Count 301 Mean Platelet 10.1 Volume Immature 0.200 Granulocytes % Neutrophils % 70.3 Lymphocytes % 18.4 Monocytes % 9.4 Eosinophils % 1.4 Basophils % 0.3 Nucleated Red 0.0 Blood Cells % Immature 0.020 Granulocytes # Neutrophils # 6.6 Lymphocytes # 1.7 Monocytes # 0.9 Eosinophils # 0.1 Basophils # 0.0 Nucleated Red 0.0 Blood Cells # Sodium Level 142 Potassium Level 3.8 Chloride Level 98 Carbon Dioxide 37 H Level Anion Gap 7 Blood Urea 14 Nitrogen Creatinine 0.47 Est Glomerular > 60 Filtrat Rate mL/min Glucose Level 96 # Hemoglobin A1c 7.6 H Calcium Level 9.0 Magnesium Level 1.4 L Total Bilirubin 0.5 Direct Bilirubin 0.00 Indirect 0.5 Bilirubin Aspartate Amino 14 L Transf (AST/SGOT ) Alanine 19 Aminotransferase (ALT/SGPT) Alkaline 50 Phosphatase Total Protein 6.0 L Albumin 3.5 Globulin 2.50 Albumin/Globulin 1.40 Ratio Triglycerides 88 Level Cholesterol 101 Level LDL Cholesterol, 42 Calculated HDL Cholesterol 41 Cholesterol/HDL 2.4 Ratio Thyroid 2.490 Stimulating Hormone (TSH) Creatine Kinase < 20 L Creatine Kinase Index Creatinine < 0.22 Kinase MB (Mass) Troponin I < 0.012 Bedside Glucose 125 224 H Medications Medications Current Medications Ondansetron HCl (Zofran Inj) 4 mg ER BRIDGE PRN IV NAUSEA/VOMITING; Start 08/07/18 at 23:00; Stop 08/08/18 at 22:59 IV Flush (NS 3 ml) 3 ml PER PROTOCOL IV ; Start 08/08/18 at 00:00 Aspirin (Aspirin) 81 mg DAILY PO ; Start 08/08/18 at 09:00 Nitroglycerin (Nitroglycerin (Sl Tab) 0.4 Mg) 1 tab Q5M PRN SL .CHEST PAIN; Start 08/08/18 at 00:00 Acetaminophen (Tylenol Tab) 650 mg Q6H PRN PO .PAIN 1-3 OR TEMP; Start 08/08/18 at 00:00 Heparin Sodium (Porcine) (Heparin (5000 Units/1ml)) 5,000 unit Q12 SC Last administered on 08/08/18at 10:55; Admin Dose 5,000 UNIT; Start 08/08/18 at 09:00 Ipratropium [place] (Atrovent 0.02% (Neb)) 0.5 mg Q2H RESP THERAPY PRN NEB SHORTNESS OF BREATH; Start 08/08/18 at 00:00 Levofloxacin/ Dextrose 100 ml @ 100 mls/hr Q24H IVPB Last administered on 08/08/18at 10:44; Admin Dose 100 MLS/HR; Start 08/08/18 at 08:30 Furosemide (Lasix) 40 mg BID IV ; Start 08/08/18 at 21:00 Diagnostic Test (Pha) (Accu-Chek) 1 ea 02 XX ; Start 08/09/18 at 02:00 Insulin Aspart (Novolog Insulin Pen) NOVOLOG *MILD* ALGORITHM WITH MEALS BEDTIME SC Last administered on 08/08/18at 17:10; Admin Dose 3 UNIT; Start 08/08/18 at 12:00 Miscellaneous Information 1 ea NOTE XX ; Start 08/08/18 at 11:30 Glucose (Glutose) 15 gm Q15M PRN PO DECREASED GLUCOSE; Start 08/08/18 at 11:30 Glucose (Glutose) 22.5 gm Q15M PRN PO DECREASED GLUCOSE; Start 08/08/18 at 11:30 Dextrose (D50w Syringe) 25 ml Q15M PRN IV DECREASED GLUCOSE; Start 08/08/18 at 11:30 Dextrose (D50w Syringe) 50 ml Q15M PRN IV DECREASED GLUCOSE; Start 08/08/18 at 11:30 Glucagon (Glucagen) 1 mg Q15M PRN IM DECREASED GLUCOSE; Start 08/08/18 at 11:30 Glucose (Glutose) 15 gm Q15M PRN BUCCAL DECREASED GLUCOSE; Start 08/08/18 at 11:30 Amlodipine Besylate (Norvasc) 5 mg DAILY PO ; Start 08/09/18 at 09:00 Atorvastatin Calcium (Lipitor) 80 mg QHS PO ; Start 08/08/18 at 21:00 Metoprolol Tartrate (Lopressor) 100 mg BID PO Last administered on 08/08/18at 14:32; Admin Dose 100 MG; Start 08/08/18 at 14:00 Rivaroxaban (Xarelto) 20 mg WITH DINNER PO Last administered on 08/08/18at 17:04; Admin Dose 20 MG; Start 08/08/18 at 18:00 Pantoprazole (Protonix Tab) 40 mg DAILY@06 PO ; Start 08/09/18 at 06:00 EBENEZER GUTIERREZ MD Aug 08, 2018 18:15
[2018-08-08] MEDS: DILTIAZEM 30 MG TAB PO SCH ×2 (18:50→20:24)
[2018-08-08] MEDS: ATORVASTATIN 80 MG TAB PO SCH (20:23)
[2018-08-08] MEDS: FUROSEMIDE 40 MG INJ IV SCH (20:25)
[2018-08-09] VITALS (11 sets, daily range): BP systolic 113–135; BP diastolic 62–83; PULSE 71–105; RESP 14–20
[2018-08-09] MEDS: ACCU-CHEK XX SCH (02:00)
[2018-08-09] MEDS: PANTOPRAZOLE (EC) 40 MG TAB PO SCH (06:34)
[2018-08-09] MEDS: LEVOFLOXACIN 500MG/D5W (PMX) 100 ML IVPB SCH (08:52)
[2018-08-09] MEDS: HEPARIN 5,000 UNIT/1 ML VIAL SC SCH ×2 (08:54→21:35)
[2018-08-09] MEDS: INSULIN ASPART [NOVOLOG] 3 ML PEN SC SCH ×4 (08:54→21:36)
[2018-08-09] MEDS: METOPROLOL 100 MG TAB PO SCH ×2 (08:55→21:19)
[2018-08-09] MEDS: DILTIAZEM 30 MG TAB PO SCH ×4 (08:55→21:19)
[2018-08-09] MEDS: FUROSEMIDE 40 MG INJ IV SCH ×2 (08:55→21:16)
[2018-08-09] MEDS ORDERED: NON-FORMULARY/PATIENT OWN MED (Esomeprazole Mag Trihydrate (Nexium) 20 MG) PO SCH (09:00)
[2018-08-09] MEDS ORDERED: AMLODIPINE 5 MG TAB PO SCH (09:00)
--- NOTE | 2018-08-09 11:49 | PN ---
Date/Time of Note Date/Time of Note DATE: 08/09/18 TIME: 11:36 Assessment/Plan VTE Prophylaxis Risk score (from Ns)>0 risk: 3 SCD applied (from Ns): No SCD contraindicated: patient refusal (2/2 pain ) Pharmacological prophylaxis: rivaroxaban Lines/Catheters IV [facility]from [facility] [place] Urinary Cath still in place: Yes Reason Cath still needed: other (indicate) Assessment/Plan Hospital Course 72-year-old morbidly obese female who was brought in from home via ambulance because of shortness of breath and is admitted and managed as follows: 1. Acute hypercapnic respiratory failure: Improved 2. Acute CHF exacerbation, acute on chronic, diastolic, preserved ejection fraction 3. Atrial fibrillation with improved rate control 4. Hypertension 5. Diabetes 6. Developmental delay 7. Chronic debility, ambulates with walker 8. Morbid obesity 9. 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 Xarelto therapy 11. Hypochromasia microcytosis, rule out iron deficiency 12. Advised evaluation received edema likely secondary to #2 with tenderness and overlying cellulitis 6 select advised evaluation received 13. Abdominal distention? Plan: -Continue telemetry monitoring for now, continue diuresis, uppercase cardiology input -Wean off oxygen -Ambulate with physical therapy -Empiric antibiotic for cellulitis -Begin low-dose gabapentin for lower extremity pain -Continue all other supportive care -Begin discharge planning -Recommend outpatient sleep study -abd uss r/o ascites -LE dopplers, ?r/o DVT, patient already on chronic Xarelto therapy Result Diagram: 08/09/18 0610 08/09/18 0610 Results 24hrs Laboratory Tests Test 08/08/18 17:04 08/08/18 20:29 08/09/18 01:16 08/09/18 06:10 Bedside Glucose 224 H 195 209 White Blood Count 9.0 Red Blood Count 4.34 Hemoglobin 10.0 L Hematocrit 33.0 L Mean Corpuscular 76.0 L Volume Mean Corpuscular 23.0 L Hemoglobin Mean Corpuscular 30.3 L Hemoglobin Concent Red Cell 18.0 H Distribution Width Platelet Count 292 Mean Platelet Volume 10.0 Immature 0.300 Granulocytes % Neutrophils % 66.8 Lymphocytes % 20.6 Monocytes % 10.2 Eosinophils % 1.8 Basophils % 0.3 Nucleated Red Blood 0.0 Cells % Immature 0.030 Granulocytes # Neutrophils # 6.0 Lymphocytes # 1.9 Monocytes # 0.9 Eosinophils # 0.2 Basophils # 0.0 Nucleated Red Blood 0.0 Cells # Sodium Level 138 Potassium Level 3.9 Chloride Level 93 L Carbon Dioxide Level 40 H Anion Gap 5 Blood Urea Nitrogen 15 Creatinine 0.51 Est Glomerular > 60 Filtrat Rate mL/min Glucose Level 181 Calcium Level 9.1 Phosphorus Level 3.9 Magnesium Level 1.6 L Test 08/09/18 08:07 Bedside Glucose 173 Subjective 24 Hr Interval Summary Free Text/Dictation Looks and feels a bit better, still quite anxious, comfortable off BiPAP Exam/Review of Systems Exam Vitals Vital Signs Date Temp Pulse Resp B/P (MAP) Pulse Ox O2 O2 Flow FiO2 Time Delivery Rate 08/09/18 103 08:01 08/09/18 98.6 14 135/83 97 07:36 (100) 08/09/18 3.0 00:43 08/08/18 50 05:27 08/08/18 BIPAP 03:15 Intake and Output 08/08/18 08/08/18 08/09/18 1515:00 23:00 07:00 IntakeIntake Total 700 ml 400 ml OutputOutput Total 3000 ml 1100 ml BalanceBalance -2300 ml -700 ml Constitutional: alert, obese Psych: anxiety Head: normocephalic, atraumatic Eyes: PERRL Respiratory: diminished breath sounds; No crackles/rales, No labored breathing, No wheezing Cardiovascular: irregular rhythm; No murmurs/extra sounds Gastrointestinal: soft, non-tender, bowel sounds, distended Extremities: edema, tenderness (Out of proportion to touch, overlying erythema) Neurological: No confused Skin: other (See above) Results Results 24hrs Laboratory Tests Test 08/08/18 17:04 08/08/18 20:29 08/09/18 01:16 08/09/18 06:10 Bedside Glucose 224 H 195 209 White Blood Count 9.0 Red Blood Count 4.34 Hemoglobin 10.0 L Hematocrit 33.0 L Mean Corpuscular 76.0 L Volume Mean Corpuscular 23.0 L Hemoglobin Mean Corpuscular 30.3 L Hemoglobin Concent Red Cell 18.0 H Distribution Width Platelet Count 292 Mean Platelet Volume 10.0 Immature 0.300 Granulocytes % Neutrophils % 66.8 Lymphocytes % 20.6 Monocytes % 10.2 Eosinophils % 1.8 Basophils % 0.3 Nucleated Red Blood 0.0 Cells % Immature 0.030 Granulocytes # Neutrophils # 6.0 Lymphocytes # 1.9 Monocytes # 0.9 Eosinophils # 0.2 Basophils # 0.0 Nucleated Red Blood 0.0 Cells # Sodium Level 138 Potassium Level 3.9 Chloride Level 93 L Carbon Dioxide Level 40 H Anion Gap 5 Blood Urea Nitrogen 15 Creatinine 0.51 Est Glomerular > 60 Filtrat Rate mL/min Glucose Level 181 Calcium Level 9.1 Phosphorus Level 3.9 Magnesium Level 1.6 L Test 08/09/18 08:07 Bedside Glucose 173 Medications Medication Current Medications IV Flush (NS 3 ml) 3 ml PER PROTOCOL IV ; Start 08/08/18 at 00:00 Nitroglycerin (Nitroglycerin (Sl Tab) 0.4 Mg) 1 tab Q5M PRN SL .CHEST PAIN; Start 08/08/18 at 00:00 Acetaminophen (Tylenol Tab) 650 mg Q6H PRN PO .PAIN 1-3 OR TEMP; Start 08/08/18 at 00:00 Heparin Sodium (Porcine) (Heparin (5000 Units/1ml)) 5,000 unit Q12 SC Last administered on 08/09/18at 08:54; Admin Dose 5,000 UNIT; Start 08/08/18 at 09:00 Ipratropium [place] (Atrovent 0.02% (Neb)) 0.5 mg Q2H RESP THERAPY PRN NEB SHORTNESS OF BREATH; Start 08/08/18 at 00:00 Levofloxacin/ Dextrose 100 ml @ 100 mls/hr Q24H IVPB Last administered on 08/09/18at 08:52; Admin Dose 100 MLS/HR; Start 08/08/18 at 08:30 Furosemide (Lasix) 40 mg BID IV Last administered on 08/09/18at 08:55; Admin Do se 40 MG; Start 08/08/18 at 21:00 Diagnostic Test (Pha) (Accu-Chek) 1 ea 02 XX ; Start 08/09/18 at 02:00 Insulin Aspart (Novolog Insulin Pen) NOVOLOG *MILD* ALGORITHM WITH MEALS BEDTIME SC Last administered on 08/09/18at 08:54; Admin Dose 1 UNIT; Start 08/08/18 at 12:00 Miscellaneous Information 1 ea NOTE XX ; Start 08/08/18 at 11:30 Glucose (Glutose) 15 gm Q15M PRN PO DECREASED GLUCOSE; Start 08/08/18 at 11:30 Glucose (Glutose) 22.5 gm Q15M PRN PO DECREASED GLUCOSE; Start 08/08/18 at 11:30 Dextrose (D50w Syringe) 25 ml Q15M PRN IV DECREASED GLUCOSE; Start 08/08/18 at 11:30 Dextrose (D50w Syringe) 50 ml Q15M PRN IV DECREASED GLUCOSE; Start 08/08/18 at 11:30 Glucagon (Glucagen) 1 mg Q15M PRN IM DECREASED GLUCOSE; Start 08/08/18 at 11:30 Glucose (Glutose) 15 gm Q15M PRN BUCCAL DECREASED GLUCOSE; Start 08/08/18 at 11:30 Atorvastatin Calcium (Lipitor) 80 mg QHS PO Last administered on 08/08/18at 20:23; Admin Dose 80 MG; Start 08/08/18 at 21:00 Metoprolol Tartrate (Lopressor) 100 mg BID PO Last administered on 08/09/18at 08:55; Admin Dose 100 MG; Start 08/08/18 at 14:00 Rivaroxaban (Xarelto) 20 mg WITH DINNER PO Last administered on 08/08/18at 17:04; Admin Dose 20 MG; Start 08/08/18 at 18:00 Pantoprazole (Protonix Tab) 40 mg DAILY@06 PO Last administered on 08/09/18at 06:34; Admin Dose 40 MG; Start 08/09/18 at 06:00 Diltiazem HCl (Cardizem) 30 mg QID PO Last administered on 08/09/18at 08:55; Admin Dose 30 MG; Start 08/08/18 at 18:30 MAC FRYE Aug 09, 2018 11:48
[2018-08-09] MEDS ORDERED: MAGNESIUM SULFATE 2 GM/50 ML 50 ML IVPB ONE ×2 (12:00→21:00)
[2018-08-09] MEDS ORDERED: VANCOMYCIN IV PER PHARMACY XX SCH (12:00)
[2018-08-09] MEDS ORDERED: VANCOMYCIN 1 GM (PMX) 250 ML IVPB ONE (12:00)
[2018-08-09] MEDS ORDERED: VANCOMYCIN HCL 1.5 GM in SOD CHLORIDE 0.9% 250 ML IVPB SCH (13:00)
[2018-08-09] MEDS: RIVAROXABAN 20 MG TABLET PO SCH (18:15)
--- NOTE | 2018-08-09 20:58 | CONS ---
Consult Date/Type/Reason Admit Date/Time Aug 07, 2018 at 22:47 Initial Consult Date 08/08/18 Requesting Provider: MAC FRYE Date/Time of Note DATE: 08/09/18 TIME: 20:55 Subjective Cardiology follow-up progress note Subjective: Discussed with the staff and telemetry was reviewed. Patient with atrial fibrillation heart rate is better. Patient is a poor historian but no report of chest pain or pressure Objective: General: Obese female in no acute distress HEENT: NC/AT. pupils are equal. round. NECK: Unable to assess for JVD. no stridor. CV: Irregularly irregular systolic murmur; no gallop or rubs. PULM: no wheezing . mild rhonchi. GI: SOFT, NT, ND, no rebound or guarding Extremity: +B/L LE edema. no clubbing. neuro: awake and alert, OX2. Psych: calm and pleasant rectal: deferred EKG showed atrial fibrillation. Low voltage. Echocardiogram was personally reviewed which shows: There is mild enlargement of left atrium. Normal left ventricular systolic function. Normal left ventricular cavity size. Mild concentric left ventricular hypertrophy. Ejection fraction is visually estimated at 60 %. Abnormal Diastolic Function. Normal appearance and function of the mitral valve with trace physiologic regurgitation. Normal appearance of the aortic valve. No significant aortic stenosis or insufficiency. Normal appearance of the tricuspid valve. Estimated peak PA systolic pressure 45 mmHg. There is mild tricuspid regurgitation. Dilated IVC without respiratory collapse consistent with elevated right atrial pressure. Objective Vitals Vital Signs Date Temp Pulse Resp B/P (MAP) Pulse Ox O2 O2 Flow FiO2 Time Delivery Rate 08/09/18 3.0 20:13 08/09/18 91 95 20:12 08/09/18 98.7 18 113/67 20:00 (82) 08/09/18 Nasal 19:30 Cannula 08/08/18 50 05:27 Intake and Output 08/08/18 08/08/18 08/09/18 1414:59 22:59 06:59 IntakeIntake Total 700 ml 400 ml OutputOutput Total 3000 ml 1100 ml BalanceBalance -2300 ml -700 ml Results/Medications Result Diagram: 08/09/18 0610 08/09/18 0610 Results 24 hrs Laboratory Tests Test 08/09/18 01:16 08/09/18 06:10 08/09/18 08:07 08/09/18 12:00 Bedside Glucose 209 173 220 White Blood Count 9.0 Red Blood Count 4.34 Hemoglobin 10.0 L Hematocrit 33.0 L Mean Corpuscular 76.0 L Volume Mean Corpuscular 23.0 L Hemoglobin Mean Corpuscular 30.3 L Hemoglobin Concent Red Cell 18.0 H Distribution Width Platelet Count 292 Mean Platelet Volume 10.0 Immature 0.300 Granulocytes % Neutrophils % 66.8 Lymphocytes % 20.6 Monocytes % 10.2 Eosinophils % 1.8 Basophils % 0.3 Nucleated Red Blood 0.0 Cells % Immature 0.030 Granulocytes # Neutrophils # 6.0 Lymphocytes # 1.9 Monocytes # 0.9 Eosinophils # 0.2 Basophils # 0.0 Nucleated Red Blood 0.0 Cells # Sodium Level 138 Potassium Level 3.9 Chloride Level 93 L Carbon Dioxide Level 40 H Anion Gap 5 Blood Urea Nitrogen 15 Creatinine 0.51 Est Glomerular > 60 Filtrat Rate mL/min Glucose Level 181 Calcium Level 9.1 Phosphorus Level 3.9 Magnesium Level 1.6 L Test 08/09/18 17:42 Bedside Glucose 232 H Home Meds Reported Medications Insulin Isophan/Regular (Humulin 70/30) 100 Units/Ml Susp, 40 UNIT SC AC BREAKFAST DINNER, EA 08/08/18 Metoprolol Tartrate* (Lopressor*) 100 Mg Tablet, 100 MG PO BID, #60 TAB 08/08/18 Hydralazine Hcl* (Hydralazine Hcl*) 25 Mg Tab, 25 MG PO BID, #60 TAB 08/08/18 Metformin Hcl* (Metformin Hcl*) 1,000 Mg Tablet, 1000 MG PO WITH BREAKFAST DINNE, #60 TAB 08/08/18 Atorvastatin* (Atorvastatin*) 80 Mg Tablet, 80 MG PO QHS, #30 TAB 08/08/18 Esomeprazole Mag Trihydrate (Nexium) 20 Mg Capsule.dr, 20 MG PO DAILY, #30 CAP 08/08/18 Furosemide* (Furosemide*) 20 Mg Tablet, 20 MG PO DAILY, #60 TAB 08/08/18 Amlodipine Besylate* (Norvasc*) 5 Mg Tablet, 5 MG PO DAILY, TAB 08/08/18 Losartan Potassium* (Losartan Potassium*) 100 Mg Tablet, 100 MG PO DAILY, TAB 08/08/18 Rivaroxaban* (Xarelto*) 20 Mg Tablet, 20 MG PO WITH DINNER, TAB 08/08/18 Medications Current Medications IV Flush (NS 3 ml) 3 ml PER PROTOCOL IV ; Start 08/08/18 at 00:00 Nitroglycerin (Nitroglycerin (Sl Tab) 0.4 Mg) 1 tab Q5M PRN SL .CHEST PAIN; Start 08/08/18 at 00:00 Acetaminophen (Tylenol Tab) 650 mg Q6H PRN PO .PAIN 1-3 OR TEMP; Start 08/08/18 at 00:00 Heparin Sodium (Porcine) (Heparin (5000 Units/1ml)) 5,000 unit Q12 SC Last administered on 08/09/18at 08:54; Admin Dose 5,000 UNIT; Start 08/08/18 at 09:00 Ipratropium [place] (Atrovent 0.02% (Neb)) 0.5 mg Q2H RESP THERAPY PRN NEB SHORTNESS OF BREATH; Start 08/08/18 at 00:00 Levofloxacin/ Dextrose 100 ml @ 100 mls/hr Q24H IVPB Last administered on 08/09/18at 08:52; Admin Dose 100 MLS/HR; Start 08/08/18 at 08:30 Furosemide (Lasix) 40 mg BID IV Last administered on 08/09/18at 08:55; Admin Dose 40 MG; Start 08/08/18 at 21:00 Diagnostic Test (Pha) (Accu-Chek) 1 ea 02 XX ; Start 08/09/18 at 02:00 Insulin Aspart (Novolog Insulin Pen) NOVOLOG *MILD* ALGORITHM WITH MEALS BEDTIME SC Last administered on 08/09/18at 18:17; Admin Dose 3 UNIT; Start 08/08/18 at 12:00 Miscellaneous Information 1 ea NOTE XX ; Start 08/08/18 at 11:30 Glucose (Glutose) 15 gm Q15M PRN PO DECREASED GLUCOSE; Start 08/08/18 at 11:30 Glucose (Glutose) 22.5 gm Q15M PRN PO DECREASED GLUCOSE; Start 08/08/18 at 11:30 Dextrose (D50w Syringe) 25 ml Q15M PRN IV DECREASED GLUCOSE; Start 08/08/18 at 11:30 Dextrose (D50w Syringe) 50 ml Q15M PRN IV DECREASED GLUCOSE; Start 08/08/18 at 11:30 Glucagon (Glucagen) 1 mg Q15M PRN IM DECREASED GLUCOSE; Start 08/08/18 at 11:30 Glucose (Glutose) 15 gm Q15M PRN BUCCAL DECREASED GLUCOSE; Start 08/08/18 at 11:30 Atorvastatin Calcium (Lipitor) 80 mg QHS PO Last administered on 08/08/18at 20:23; Admin Dose 80 MG; Start 08/08/18 at 21:00 Metoprolol Tartrate (Lopressor) 100 mg BID PO Last administered on 08/09/18at 08:55; Admin Dose 100 MG; Start 08/08/18 at 14:00 Rivaroxaban (Xarelto) 20 mg WITH DINNER PO Last administered on 08/09/18at 18:15; Admin Dose 20 MG; Start 08/08/18 at 18:00 Pantoprazole (Protonix Tab) 40 mg DAILY@06 PO Last administered on 08/09/18at 06:34; Admin Dose 40 MG; Start 08/09/18 at 06:00 Diltiazem HCl (Cardizem) 30 mg QID PO Last administered on 08/09/18at 18:15; Admin Dose 30 MG; Start 08/08/18 at 18:30 Vancomycin HCl (Vanco Iv Per Pharmacy) VANCOMYCIN PER PHARMACY PER PROTOCOL XX ; Start 08/09/18 at 12:00 Vancomycin HCl 1.25 gm/Sodium Chloride 250 ml @ 83.333 mls/ hr Q24H IVPB ; Start 08/10/18 at 13:00 Assessment/Plan Hospital Course (Demo Recall) Acute hypercapnic hypoxemic respiratory failure Likely obstructive sleep apnea Congestive heart failure 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 cont Cardizem to control the heart rate better IV Lasix has been initiated. Potassium to be replaced as needed Consider nightly CPAP Diabetic control to be continued We will monitor on telemetry Continue with Xarelto Replace electrolytes including magnesium as needed Thank you for this referral. We will continue to follow along with you EBENEZER GUTIERREZ MD [facility] WITH [facility] EBENEZER GUTIERREZ MD Aug 09, 2018 20:58
[2018-08-09] MEDS: ATORVASTATIN 80 MG TAB PO SCH (21:18)
[2018-08-09] MEDS ORDERED: ACCU-CHEK XX ONE (21:30)
[2018-08-09] MEDS ORDERED: INSULIN ASPART [NOVOLOG] 3 ML PEN SC ONE (21:30)
[2018-08-09] MEDS: IPRATROPIUM (NEB) 0.5 MG/2.5 ML AMP NEB PRN (23:11)
[2018-08-10] VITALS (22 sets, daily range): BP systolic 117–140; BP diastolic 57–69; PULSE 73–105; RESP 17–20
[2018-08-10] MEDS: ACCU-CHEK XX SCH (01:27)
[2018-08-10] MEDS ORDERED: LORAZEPAM 2 MG INJ IV ONE (03:00)
[2018-08-10] MEDS: PANTOPRAZOLE (EC) 40 MG TAB PO SCH (06:06)
[2018-08-10] MEDS: LEVOFLOXACIN 500MG/D5W (PMX) 100 ML IVPB SCH (08:22)
[2018-08-10] MEDS: HEPARIN 5,000 UNIT/1 ML VIAL SC SCH ×2 (08:24→20:19)
[2018-08-10] MEDS: INSULIN ASPART [NOVOLOG] 3 ML PEN SC SCH ×6 (08:24→20:23)
[2018-08-10] MEDS: DILTIAZEM 30 MG TAB PO SCH ×4 (08:39→20:18)
[2018-08-10] MEDS: METOPROLOL 100 MG TAB PO SCH ×2 (08:39→20:18)
[2018-08-10] MEDS: FUROSEMIDE 40 MG INJ IV SCH ×2 (08:39→20:17)
--- NOTE | 2018-08-10 09:58 | CONS ---
Consult Date/Type/Reason Admit Date/Time Aug 07, 2018 at 22:47 Initial Consult Date 08/08/18 Requesting Provider: MAC FRYE Date/Time of Note DATE: 08/10/18 TIME: 09:57 Subjective Cardiology follow-up progress note Subjective: Discussed with the staff and telemetry was reviewed. Patient with atrial fibrillation heart rate is better. Patient is a poor historian but no report of chest pain or pressure PT WITH INCREASING SOB AND HYPOXEMIA AND is on BIPAP NOW Objective: General: Obese female ON bipap HEENT: NC/AT. pupils are equal. round. NECK: Unable to assess for JVD. no stridor. CV: Irregularly irregular systolic murmur; no gallop or rubs. PULM: no wheezing . mild rhonchi. GI: SOFT, NT, ND, no rebound or guarding Extremity: +B/L LE edema. no clubbing. neuro: awake and alert, OX2. Psych: calm and pleasant rectal: deferred EKG showed atrial fibrillation. Low voltage. Echocardiogram was personally reviewed which shows: There is mild enlargement of left atrium. Normal left ventricular systolic function. Normal left ventricular cavity size. Mild concentric left ventricular hypertrophy. Ejection fraction is visually estimated at 60 %. Abnormal Diastolic Function. Normal appearance and function of the mitral valve with trace physiologic regurgitation. Normal appearance of the aortic valve. No significant aortic stenosis or insufficiency. Normal appearance of the tricuspid valve. Estimated peak PA systolic pressure 45 mmHg. There is mild tricuspid regurgitation. Dilated IVC without respiratory collapse consistent with elevated right atrial pressure. Objective Vitals Vital Signs Date Temp Pulse Resp B/P (MAP) Pulse Ox O2 O2 Flow FiO2 Time Delivery Rate 08/10/18 105 100 50 09:48 08/10/18 Nasal 4.0 08:13 Cannula 08/10/18 98.1 18 127/66 07:30 (86) Intake and Output 08/09/18 08/09/18 08/10/18 1414:59 22:59 06:59 IntakeIntake Total 900 ml 500 ml OutputOutput Total 1850 ml BalanceBalance -950 ml 500 ml Results/Medications Result Diagram: 08/10/18 0535 08/10/18 0535 Results 24 hrs Laboratory Tests Test 08/09/18 12:00 08/09/18 17:42 08/09/18 21:23 08/09/18 23:53 Bedside Glucose 220 232 H 318 H 435 *H Test 08/09/18 23:54 08/10/18 01:26 08/10/18 05:35 08/10/18 07:44 Bedside Glucose 260 H 247 H 254 H White Blood Count 9.8 Red Blood Count 4.47 Hemoglobin 10.3 L Hematocrit 34.1 L Mean Corpuscular 76.3 L Volume Mean Corpuscular 23.0 L Hemoglobin Mean Corpuscular 30.2 L Hemoglobin Concent Red Cell 18.2 H Distribution Width Platelet Count 309 Mean Platelet Volume 9.6 Immature 0.400 Granulocytes % Neutrophils % 70.8 Lymphocytes % 16.2 Monocytes % 10.1 Eosinophils % 2.3 Basophils % 0.2 Nucleated Red Blood 0.0 Cells % Immature 0.040 H Granulocytes # Neutrophils # 7.0 Lymphocytes # 1.6 Monocytes # 1.0 H Eosinophils # 0.2 Basophils # 0.0 Nucleated Red Blood 0.0 Cells # Sodium Level 138 Potassium Level 4.1 Chloride Level 91 L Carbon Dioxide Level 38 H Anion Gap 9 Blood Urea Nitrogen 18 Creatinine 0.60 Est Glomerular > 60 Filtrat Rate mL/min Glucose Level 226 H Calcium Level 9.1 Iron Level 37 Total Iron Binding 387 Capacity Percent Iron 10 L Saturation Home Meds Reported Medications Insulin Isophan/Regular (Humulin 70/30) 100 Units/Ml Susp, 40 UNIT SC AC BREAK FAST DINNER, EA 08/08/18 Metoprolol Tartrate* (Lopressor*) 100 Mg Tablet, 100 MG PO BID, #60 TAB 08/08/18 Hydralazine Hcl* (Hydralazine Hcl*) 25 Mg Tab, 25 MG PO BID, #60 TAB 08/08/18 Metformin Hcl* (Metformin Hcl*) 1,000 Mg Tablet, 1000 MG PO WITH BREAKFAST DINNE, #60 TAB 08/08/18 Atorvastatin* (Atorvastatin*) 80 Mg Tablet, 80 MG PO QHS, #30 TAB 08/08/18 Esomeprazole Mag Trihydrate (Nexium) 20 Mg Capsule.dr, 20 MG PO DAILY, #30 CAP 08/08/18 Furosemide* (Furosemide*) 20 Mg Tablet, 20 MG PO DAILY, #60 TAB 08/08/18 Amlodipine Besylate* (Norvasc*) 5 Mg Tablet, 5 MG PO DAILY, TAB 08/08/18 Losartan Potassium* (Losartan Potassium*) 100 Mg Tablet, 100 MG PO DAILY, TAB 08/08/18 Rivaroxaban* (Xarelto*) 20 Mg Tablet, 20 MG PO WITH DINNER, TAB 08/08/18 Medications Current Medications IV Flush (NS 3 ml) 3 ml PER PROTOCOL IV ; Start 08/08/18 at 00:00 Nitroglycerin (Nitroglycerin (Sl Tab) 0.4 Mg) 1 tab Q5M PRN SL .CHEST PAIN; Start 08/08/18 at 00:00 Acetaminophen (Tylenol Tab) 650 mg Q6H PRN PO .PAIN 1-3 OR TEMP; Start 08/08/18 at 00:00 Heparin Sodium (Porcine) (Heparin (5000 Units/1ml)) 5,000 unit Q12 SC Last administered on 08/10/18 08:24; Admin Dose 5,000 UNIT; Start 08/08/18 at 09:00 Ipratropium [place] (Atrovent 0.02% (Neb)) 0.5 mg Q2H RESP THERAPY PRN NEB SHORTNESS OF BREATH Last administered on 08/09/18at 23:11; Admin Dose 0.5 MG; Start 08/08/18 at 00:00 Levofloxacin/ Dextrose 100 ml @ 100 mls/hr Q24H IVPB Last administered on 08/10/18 08:22; Admin Dose 100 MLS/HR; Start 08/08/18 at 08:30 Furosemide (Lasix) 40 mg BID IV Last administered on 08/10/18at 08:39; Admin Dose 40 MG; Start 08/08/18 at 21:00 Diagnostic Test (Pha) (Accu-Chek) 1 ea 02 XX Last administered on 08/10/18at 01:27; Admin Dose 1 EA; Start 08/09/18 at 02:00 Insulin Aspart (Novolog Insulin Pen) NOVOLOG *MILD* ALGORITHM WITH MEALS BEDTIME SC Last administered on 08/10/18 08:24; Admin Dose 3 UNIT; Start 08/08/18 at 12:00 Miscellaneous Information 1 ea NOTE XX ; Start 08/08/18 at 11:30 Glucose (Glutose) 15 gm Q15M PRN PO DECREASED GLUCOSE; Start 08/08/18 at 11:30 Glucose (Glutose) 22.5 gm Q15M PRN PO DECREASED GLUCOSE; Start 08/08/18 at 11:30 Dextrose (D50w Syringe) 25 ml Q15M PRN IV DECREASED GLUCOSE; Start 08/08/18 at 11:30 Dextrose (D50w Syringe) 50 ml Q15M PRN IV DECREASED GLUCOSE; Start 08/08/18 at 11:30 Glucagon (Glucagen) 1 mg Q15M PRN IM DECREASED GLUCOSE; Start 08/08/18 at 11:30 Glucose (Glutose) 15 gm Q15M PRN BUCCAL DECREASED GLUCOSE; Start 08/08/18 at 11:30 Atorvastatin Calcium (Lipitor) 80 mg QHS PO Last administered on 08/09/18at 21:18; Admin Dose 80 MG; Start 08/08/18 at 21:00 Metoprolol Tartrate (Lopressor) 100 mg BID PO Last administered on 08/10/18at 08:39; Admin Dose 100 MG; Start 08/08/18 at 14:00 Rivaroxaban (Xarelto) 20 mg WITH DINNER PO Last administered on 08/09/18at 18:15; Admin Dose 20 MG; Start 08/08/18 at 18:00 Pantoprazole (Protonix Tab) 40 mg DAILY@06 PO Last administered on 08/10/18at 06:06; Admin Dose 40 MG; Start 08/09/18 at 06:00 Diltiazem HCl (Cardizem) 30 mg QID PO Last administered on 08/10/18at 08:39; Admin Dose 30 MG; Start 08/08/18 at 18:30 Vancomycin HCl (Vanco Iv Per Pharmacy) VANCOMYCIN PER PHARMACY PER PROTOCOL XX ; Start 08/09/18 at 12:00 Vancomycin HCl 1.25 gm/Sodium Chloride 250 ml @ 83.333 mls/ hr Q24H IVPB ; Start 08/10/18 at 13:00 Assessment/Plan Hospital Course (Demo Recall) Acute hypercapnic hypoxemic respiratory failure Likely obstructive sleep apnea Congestive heart failure 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 cont Cardizem to control the heart rate better IV Lasix has been initiated. Potassium to be replaced as needed nightly CPAP and BIPAP prn Diabetic control to be continued We will monitor on telemetry Continue with Xarelto Replace electrolytes as needed CHECK CXR tomorrow AM Thank you for this referral. We will continue to follow along with you EBENEZER GUTIERREZ MD [facility] EBENEZER GUTIERREZ MD August 10, 2018 09:58
--- NOTE | 2018-08-10 12:01 | PN ---
Date/Time of Note Date/Time of Note DATE: 08/10/18 TIME: 12:00 Assessment/Plan VTE Prophylaxis Risk score (from Nsg)>0 risk: 7 Pharmacological prophylaxis: rivaroxaban Lines/Catheters IV Catheter Type (from Nrsg): Saline Lock Urinary Cath still in place: No Assessment/Plan Hospital Course 72-year-old morbidly obese female who was brought in from home via ambulance because of shortness of breath and is admitted and managed as follows: 1. Acute hypercapnic respiratory failure: Improving ? 2. Acute CHF exacerbation, acute on chronic, diastolic, preserved ejection fraction 3. Atrial fibrillation with improved rate control 4. Hypertension 5. Diabetes 6. Developmental delay 7. Chronic debility, ambulates with walker 8. Morbid obesity 9. 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 Xarelto therapy 11. Hypochromasia microcytosis, rule out iron deficiency Plan: continue diuresis continue to wean O2 advance diet ambulate supportive care of comorbidities outpatient sleep study Further interventions per course Result Diagram: 08/10/18 0535 08/10/18 0535 Results 24hrs Laboratory Tests Test 08/09/18 17:42 08/09/18 21:23 08/09/18 23:53 08/09/18 23:54 Bedside Glucose 232 H 318 H 435 *H 260 H Test 08/10/18 01:26 08/10/18 05:35 08/10/18 07:44 08/10/18 11:46 Bedside Glucose 247 H 254 H 251 H White Blood Count 9.8 Red Blood Count 4.47 Hemoglobin 10.3 L Hematocrit 34.1 L Mean Corpuscular 76.3 L Volume Mean Corpuscular 23.0 L Hemoglobin Mean Corpuscular 30.2 L Hemoglobin Concent Red Cell 18.2 H Distribution Width Platelet Count 309 Mean Platelet Volume 9.6 Immature 0.400 Granulocytes % Neutrophils % 70.8 Lymphocytes % 16.2 Monocytes % 10.1 Eosinophils % 2.3 Basophils % 0.2 Nucleated Red Blood 0.0 Cells % Immature 0.040 H Granulocytes # Neutrophils # 7.0 Lymphocytes # 1.6 Monocytes # 1.0 H Eosinophils # 0.2 Basophils # 0.0 Nucleated Red Blood 0.0 Cells # Sodium Level 138 Potassium Level 4.1 Chloride Level 91 L Carbon Dioxide Level 38 H Anion Gap 9 Blood Urea Nitrogen 18 Creatinine 0.60 Est Glomerular > 60 Filtrat Rate mL/min Glucose Level 226 H Calcium Level 9.1 Iron Level 37 Total Iron Binding 387 Capacity Percent Iron 10 L Saturation Subjective 24 Hr Interval Summary Free Text/Dictation patient still requiring intermittent bipap therapy Exam/Review of Systems Exam Vitals Vital Signs Date Temp Pulse Resp B/P (MAP) Pulse Ox O2 O2 Flow FiO2 Time Delivery Rate 08/10/18 98.7 93 17 140/65 11:34 (90) 08/10/18 4.0 11:25 08/10/18 100 50 09:48 08/10/18 Nasal 08:13 Cannula Intake and Output 08/09/18 08/09/18 08/10/18 1515:00 23:00 07:00 IntakeIntake Total 900 ml 500 ml OutputOutput Total 1850 ml BalanceBalance -950 ml 500 ml Exam Constitutional: alert, obese Psych: anxiety Head: normocephalic, atraumatic Eyes: PERRL Respiratory: diminished breath sounds; No crackles/rales, No labored breathing, No wheezing Cardiovascular: irregular rhythm; No murmurs/extra sounds Gastrointestinal: soft, non-tender, bowel sounds, distended Extremities: edema, tenderness and erythema improving? Neurological: No confused Skin: other (See above) Results Results 24hrs Laboratory Tests Test 08/09/18 17:42 08/09/18 21:23 08/09/18 23:53 08/09/18 23:54 Bedside Glucose 232 H 318 H 435 *H 260 H Test 08/10/18 01:26 08/10/18 05:35 08/10/18 07:44 08/10/18 11:46 Bedside Glucose 247 H 254 H 251 H White Blood Count 9.8 Red Blood Count 4.47 Hemoglobin 10.3 L Hematocrit 34.1 L Mean Corpuscular 76.3 L Volume Mean Corpuscular 23.0 L Hemoglobin Mean Corpuscular 30.2 L Hemoglobin Concent Red Cell 18.2 H Distribution Width Platelet Count 309 Mean Platelet Volume 9.6 Immature 0.400 Granulocytes % Neutrophils % 70.8 Lymphocytes % 16.2 Monocytes % 10.1 Eosinophils % 2.3 Basophils % 0.2 Nucleated Red Blood 0.0 Cells % Immature 0.040 H Granulocytes # Neutrophils # 7.0 Lymphocytes # 1.6 Monocytes # 1.0 H Eosinophils # 0.2 Basophils # 0.0 Nucleated Red Blood 0.0 Cells # Sodium Level 138 Potassium Level 4.1 Chloride Level 91 L Carbon Dioxide Level 38 H Anion Gap 9 Blood Urea Nitrogen 18 Creatinine 0.60 Est Glomerular > 60 Filtrat Rate mL/min Glucose Level 226 H Calcium Level 9.1 Iron Level 37 Total Iron Binding 387 Capacity Percent Iron 10 L Saturation Medications Medication Current Medications IV Flush (NS 3 ml) 3 ml PER PROTOCOL IV ; Start 08/08/18 at 00:00 Nitroglycerin (Nitroglycerin (Sl Tab) 0.4 Mg) 1 tab Q5M PRN SL .CHEST PAIN; St art 08/08/18 at 00:00 Acetaminophen (Tylenol Tab) 650 mg Q6H PRN PO .PAIN 1-3 OR TEMP; Start 08/08/18 at 00:00 Heparin Sodium (Porcine) (Heparin (5000 Units/1ml)) 5,000 unit Q12 SC Last administered on 08/10/18at 08:24; Admin Dose 5,000 UNIT; Start 08/08/18 at 09:00 Ipratropium [place] (Atrovent 0.02% (Neb)) 0.5 mg Q2H RESP THERAPY PRN NEB SHORTNESS OF BREATH Last administered on 08/09/18at 23:11; Admin Dose 0.5 MG; Start 08/08/18 at 00:00 Furosemide (Lasix) 40 mg BID IV Last administered on 08/10/18at 08:39; Admin Dose 40 MG; Start 08/08/18 at 21:00 Diagnostic Test (Pha) (Accu-Chek) 1 ea 02 XX Last administered on 08/10/18at 01:27; Admin Dose 1 EA; Start 08/09/18 at 02:00 Insulin Aspart (Novolog Insulin Pen) NOVOLOG *MILD* ALGORITHM WITH MEALS BEDTIME SC Last administered on 08/10/18at 11:48; Admin Dose 3 UNIT; Start 08/08/18 at 12:00 Miscellaneous Information 1 ea NOTE XX ; Start 08/08/18 at 11:30 Glucose (Glutose) 15 gm Q15M PRN PO DECREASED GLUCOSE; Start 08/08/18 at 11:30 Glucose (Glutose) 22.5 gm Q15M PRN PO DECREASED GLUCOSE; Start 08/08/18 at 11:30 Dextrose (D50w Syringe) 25 ml Q15M PRN IV DECREASED GLUCOSE; Start 08/08/18 at 11:30 Dextrose (D50w Syringe) 50 ml Q15M PRN IV DECREASED GLUCOSE; Start 08/08/18 at 11:30 Glucagon (Glucagen) 1 mg Q15M PRN IM DECREASED GLUCOSE; Start 08/08/18 at 11:30 Glucose (Glutose) 15 gm Q15M PRN BUCCAL DECREASED GLUCOSE; Start 08/08/18 at 11:30 Atorvastatin Calcium (Lipitor) 80 mg QHS PO Last administered on 08/09/18at 21:18; Admin Dose 80 MG; Start 08/08/18 at 21:00 Metoprolol Tartrate (Lopressor) 100 mg BID PO Last administered on 08/10/18at 08:39; Admin Dose 100 MG; Start 08/08/18 at 14:00 Rivaroxaban (Xarelto) 20 mg WITH DINNER PO Last administered on 08/09/18at 18:15; Admin Dose 20 MG; Start 08/08/18 at 18:00 Pantoprazole (Protonix Tab) 40 mg DAILY@06 PO Last administered on 08/10/18at 06:06; Admin Dose 40 MG; Start 08/09/18 at 06:00 Diltiazem HCl (Cardizem) 30 mg QID PO Last administered on 08/10/18at 08:39; Admin Dose 30 MG; Start 08/08/18 at 18:30 Vancomycin HCl (Vanco Iv Per Pharmacy) VANCOMYCIN PER PHARMACY PER PROTOCOL XX ; Start 08/09/18 at 12:00 Vancomycin HCl 1.25 gm/Sodium Chloride 250 ml @ 83.333 mls/ hr Q24H IVPB ; Start 08/10/18 at 13:00 Cefepime HCl 50 ml @ 100 mls/hr Q12 IVPB ; Start 08/10/18 at 21:00; Status UNV Insulin Glargine (Lantus) 19 units DAILY@0800 SC ; Start 08/11/18 at 08:00; Status UNV Insulin Aspart (Novolog Insulin Pen) 6 unit WITH MEALS SC ; Start 08/10/18 at 12:00; Status UNV MAC FRYE August 10, 2018 12:01
[2018-08-10] MEDS: VANCOMYCIN HCL 1.25 GM in SOD CHLORIDE 0.9% 250 ML IVPB SCH (12:21)
[2018-08-10] MEDS: RIVAROXABAN 20 MG TABLET PO SCH (17:33)
[2018-08-10] MEDS: ACETAMINOPHEN 325 MG TAB PO PRN (17:33)
[2018-08-10] MEDS: CEFEPIME 1GM/50 ML (PMX) 50 ML IVPB SCH (20:16)
[2018-08-10] MEDS: ATORVASTATIN 80 MG TAB PO SCH (20:18)
[2018-08-11] VITALS (17 sets, daily range): BP systolic 114–137; BP diastolic 55–74; PULSE 67–106; RESP 17–19
[2018-08-11] MEDS: ACCU-CHEK XX SCH (02:00)
[2018-08-11] MEDS: PANTOPRAZOLE (EC) 40 MG TAB PO SCH (05:23)
--- NOTE | 2018-08-11 07:53 | CONS ---
Consult Date/Type/Reason Admit Date/Time Aug 07, 2018 at 22:47 Initial Consult Date 08/08/18 Type of Consultation: cv Requesting Provider: MAC FRYE Date/Time of Note DATE: 08/11/18 TIME: 07:50 Subjective Cardiology follow-up progress note Subjective: Discussed with the staff and telemetry was reviewed. Patient with atrial fibrillation heart rate is under fair control. Patient is a poor historian but no report of chest pain or pressure less resp distress and off BIPAP now Objective: General: Obese female ON bipap HEENT: NC/AT. pupils are equal. round. NECK: Unable to assess for JVD. no stridor. CV: Irregularly irregular systolic murmur; no gallop or rubs. PULM: no wheezing . mild rhonchi. GI: SOFT, NT, ND, no rebound or guarding Extremity: + trace B/L LE edema. no clubbing. neuro: awake and alert, OX2. Psych: calm and pleasant rectal: deferred EKG showed atrial fibrillation. Low voltage. Echocardiogram was personally reviewed which shows: There is mild enlargement of left atrium. Normal left ventricular systolic function. Normal left ventricular cavity size. Mild concentric left ventricular hypertrophy. Ejection fraction is visually estimated at 60 %. Abnormal Diastolic Function. Normal appearance and function of the mitral valve with trace physiologic regurgitation. Normal appearance of the aortic valve. No significant aortic stenosis or insufficiency. Normal appearance of the tricuspid valve. Estimated peak PA systolic pressure 45 mmHg. There is mild tricuspid regurgitation. Dilated IVC without respiratory collapse consistent with elevated right atrial pressure. Objective Vitals Vital Signs Date Temp Pulse Resp B/P (MAP) Pulse Ox O2 O2 Flow FiO2 Time Delivery Rate 08/11/18 99.0 89 18 114/55 93 07:28 (74) 08/11/18 4.0 33 04:45 08/10/18 Nasal 20:00 Cannula Intake and Output 08/10/18 08/10/18 08/11/18 1515:00 23:00 07:00 IntakeIntake Total 400 ml 500 ml BalanceBalance 400 ml 500 ml Results/Medications Result Diagram: 08/11/18 0530 08/11/18 0530 Results 24 hrs Laboratory Tests Test 08/10/18 11:46 08/10/18 17:33 08/10/18 20:15 08/11/18 02:22 Bedside Glucose 251 H 234 H 270 H 203 Test 08/11/18 05:30 White Blood Count 8.4 Red Blood Count 4.47 Hemoglobin 10.3 L Hematocrit 34.3 L Mean Corpuscular Volume 76.7 L Mean Corpuscular 23.0 L Hemoglobin Mean Corpuscular 30.0 L Hemoglobin Concent Red Cell Distribution 18.1 H Width Platelet Count 300 Mean Platelet Volume 9.9 Immature Granulocytes % 0.200 Neutrophils % 68.8 Lymphocytes % 18.0 Monocytes % 10.0 Eosinophils % 2.6 Basophils % 0.4 Nucleated Red Blood 0.0 Cells % Immature Granulocytes # 0.020 Neutrophils # 5.8 Lymphocytes # 1.5 Monocytes # 0.8 Eosinophils # 0.2 Basophils # 0.0 Nucleated Red Blood 0.0 Cells # Sodium Level 139 Potassium Level 3.9 Chloride Level 91 L Carbon Dioxide Level 40 H Anion Gap 8 Blood Urea Nitrogen 21 H Creatinine 0.54 Est Glomerular Filtrat > 60 Rate mL/min Glucose Level 198 Calcium Level 9.1 Magnesium Level 2.0 Total Bilirubin 0.4 Direct Bilirubin 0.00 Indirect Bilirubin 0.4 Aspartate Amino 13 L Transf (AST/SGOT) Alanine 24 Aminotransferase (ALT/SG PT) Alkaline Phosphatase 60 B-Type Natriuretic 786 H Peptide Total Protein 6.8 Albumin 3.6 Globulin 3.20 Albumin/Globulin Ratio 1.12 Home Meds Reported Medications Insulin Isophan/Regular (Humulin 70/30) 100 Units/Ml Susp, 40 UNIT SC AC BREAKFAST DINNER, EA 08/08/18 Metoprolol Tartrate* (Lopressor*) 100 Mg Tablet, 100 MG PO BID, #60 TAB 08/08/18 Hydralazine Hcl* (Hydralazine Hcl*) 25 Mg Tab, 25 MG PO BID, #60 TAB 08/08/18 Metformin Hcl* (Metformin Hcl*) 1,000 Mg Tablet, 1000 MG PO WITH BREAKFAST DINNE, #60 TAB 08/08/18 Atorvastatin* (Atorvastatin*) 80 Mg Tablet, 80 MG PO QHS, #30 TAB 08/08/18 Esomeprazole Mag Trihydrate (Nexium) 20 Mg Capsule.dr, 20 MG PO DAILY, #30 CAP 08/08/18 Furosemide* (Furosemide*) 20 Mg Tablet, 20 MG PO DAILY, #60 TAB 08/08/18 Amlodipine Besylate* (Norvasc*) 5 Mg Tablet, 5 MG PO DAILY, TAB 08/08/18 Losartan Potassium* (Losartan Potassium*) 100 Mg Tablet, 100 MG PO DAILY, TAB 08/08/18 Rivaroxaban* (Xarelto*) 20 Mg Tablet, 20 MG PO WITH DINNER, TAB 08/08/18 Medications Current Medications IV Flush (NS 3 ml) 3 ml PER PROTOCOL IV ; Start 08/08/18 at 00:00 Nitroglycerin (Nitroglycerin (Sl Tab) 0.4 Mg) 1 tab Q5M PRN SL .CHEST PAIN; Start 08/08/18 at 00:00 Acetaminophen (Tylenol Tab) 650 mg Q6H PRN PO .PAIN 1-3 OR TEMP Last administered on 08/10/18at 17:33; Admin Dose 650 MG; Start 08/08/18 at 00:00 Heparin Sodium (Porcine) (Heparin (5000 Units/1ml)) 5,000 unit Q12 SC Last administered on 08/10/18at 20:19; Admin Dose 5,000 UNIT; Start 08/08/18 at 09:00 Ipratropium [place] (Atrovent 0.02% (Neb)) 0.5 mg Q2H RESP THERAPY PRN NEB SHORTNESS OF BREATH Last administered on 08/09/18at 23:11; Admin Dose 0.5 MG; Start 08/08/18 at 00:00 Furosemide (Lasix) 40 mg BID IV Last administered on 08/10/18at 20:17; Admin Dose 40 MG; Start 08/08/18 at 21:00 Diagnostic Test (Pha) (Accu-Chek) 1 ea 02 XX Last administered on 08/10/18at 01:27; Admin Dose 1 EA; Start 08/09/18 at 02:00 Insulin Aspart (Novolog Insulin Pen) NOVOLOG *MILD* ALGORITHM WITH MEALS BEDTIME SC Last administered on 08/10/18at 20:23; Admin Dose 3 UNIT; Start 08/08/18 at 12:00 Miscellaneous Information 1 ea NOTE XX ; Start 08/08/18 at 11:30 Glucose (Glutose) 15 gm Q15M PRN PO DECREASED GLUCOSE; Start 08/08/18 at 11:30 Glucose (Glutose) 22.5 gm Q15M PRN PO DECREASED GLUCOSE; Start 08/08/18 at 11:30 Dextrose (D50w Syringe) 25 ml Q15M PRN IV DECREASED GLUCOSE; Start 08/08/18 at 11:30 Dextrose (D50w Syringe) 50 ml Q15M PRN IV DECREASED GLUCOSE; Start 08/08/18 at 11:30 Glucagon (Glucagen) 1 mg Q15M PRN IM DECREASED GLUCOSE; Start 08/08/18 at 11:30 Glucose (Glutose) 15 gm Q15M PRN BUCCAL DECREASED GLUCOSE; Start 08/08/18 at 11:30 Atorvastatin Calcium (Lipitor) 80 mg QHS PO Last administered on 08/10/18 20:18; Admin Dose 80 MG; Start 08/08/18 at 21:00 Metoprolol Tartrate (Lopressor) 100 mg BID PO Last administered on 08/10/18 20:18; Admin Dose 100 MG; Start 08/08/18 at 14:00 Rivaroxaban (Xarelto) 20 mg WITH DINNER PO Last administered on 08/10/18at 17:33; Admin Dose 20 MG; Start 08/08/18 at 18:00 Pantoprazole (Protonix Tab) 40 mg DAILY@06 PO Last administered on 08/11/18 05:23; Admin Dose 40 MG; Start 08/09/18 at 06:00 Diltiazem HCl (Cardizem) 30 mg QID PO Last administered on 08/10/18 20:18; Admin Dose 30 MG; Start 08/08/18 at 18:30 Vancomycin HCl (Vanco Iv Per Pharmacy) VANCOMYCIN PER PHARMACY PER PROTOCOL XX ; Start 08/09/18 at 12:00 Vancomycin HCl 1.25 gm/Sodium Chloride 250 ml @ 83.333 mls/ hr Q24H IVPB Last administered on 08/10/18at 12:21; Admin Dose 83.333 MLS/HR; Start 08/10/18 at 13:00 Cefepime HCl 50 ml @ 100 mls/hr Q12 IVPB Last administered on 08/10/18at 20:16; Admin Dose 100 MLS/HR; Start 08/10/18 at 21:00 Insulin Glargine (Lantus) 19 units DAILY@0800 SC ; Start 08/11/18 at 08:00 Insulin Aspart (Novolog Insulin Pen) 6 unit WITH MEALS SC Last administered on 08/10/18at 17:38; Admin Dose 6 UNIT; Start 08/10/18 at 13:30 Assessment/Plan Hospital Course (Demo Recall) Acute hypercapnic hypoxemic respiratory failure Likely obstructive sleep apnea Congestive heart failure 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 cont Cardizem and add dig to control the heart rate better change to po lasix add diomox x 2 days nightly CPAP and BIPAP prn Diabetic control to be continued We will monitor on telemetry Continue with Xarelto Replace electrolytes as needed Thank you for this referral. We will continue to follow along with you EBENEZER GUTIERREZ MD [facility] EBENEZER GUTIERREZ MD August 11, 2018 07:53
[2018-08-11] MEDS ORDERED: DIGOXIN 500 MCG INJ IV ONE (08:00)
[2018-08-11] MEDS ORDERED: SOD CHLORIDE 0.9% 100 ML ONE (08:58)
[2018-08-11] MEDS ORDERED: IODIXANOL LOCM 100 ML BTL ONE (08:58)
[2018-08-11] MEDS ORDERED: IOHEXOL 300MG/ML 150 ML BTL ONE (09:10)
[2018-08-11] MEDS: INSULIN ASPART [NOVOLOG] 3 ML PEN SC SCH ×7 (09:25→20:26)
[2018-08-11] MEDS: INSULIN GLARGINE [LANTus] (100 UNITS/ML) SYG SC SCH (09:26)
[2018-08-11] MEDS: CEFEPIME 1GM/50 ML (PMX) 50 ML IVPB SCH ×2 (09:30→20:20)
[2018-08-11] MEDS: ACETAZOLAMIDE 500 MG INJ IV SCH (09:33)
[2018-08-11] MEDS: HEPARIN 5,000 UNIT/1 ML VIAL SC SCH (09:39)
[2018-08-11] MEDS: METOPROLOL 100 MG TAB PO SCH ×2 (09:40→20:21)
[2018-08-11] MEDS: FUROSEMIDE 40 MG TAB PO SCH (09:40)
[2018-08-11] MEDS: DILTIAZEM 30 MG TAB PO SCH ×4 (09:42→20:21)
[2018-08-11] MEDS: VANCOMYCIN HCL 1.25 GM in SOD CHLORIDE 0.9% 250 ML IVPB SCH (12:47)
[2018-08-11] MEDS: DIGOXIN 0.125 MG TAB PO SCH (12:48)
--- NOTE | 2018-08-11 13:09 | PN ---
Date/Time of Note Date/Time of Note DATE: 08/11/18 TIME: 13:03 Assessment/Plan VTE Prophylaxis Risk score (from Nsg)>0 risk: 7 Pharmacological prophylaxis: apixaban Lines/Catheters IV Catheter Type (from Nrsg): Saline Lock Urinary Cath still in place: No Assessment/Plan Hospital Course S: still requiring intermittent bipap therapy O: Constitutional: alert, obese Psych: anxiety Head: normocephalic, atraumatic Eyes: PERRL Respiratory: diminished breath sounds; No crackles/rales, No labored breathing, No wheezing Cardiovascular: irregular rhythm; No murmurs/extra sounds Gastrointestinal: soft, non-tender, bowel sounds, distended Extremities: edema, tenderness and erythema improved Neurological: No confused Skin: other (See above) assessment and plan: 72-year-old morbidly obese female who was brought in from home via ambulance because of shortness of breath and is admitted and managed as follows: 1. Acute hypercapnic respiratory failure: Improved 2. Acute CHF exacerbation, acute on chronic, diastolic, preserved ejection fraction 3. Atrial fibrillation with improved rate control 4. Hypertension 5. Diabetes 6. Developmental delay 7. Chronic debility, ambulates with walker 8. Morbid obesity 9. 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 Xarelto therapy 11. Hypochromasia microcytosis, rule out iron deficiency 12. Ganesh bronchitis with 13. LE cellulitis Plan: continue diuresis per cardio continue to wean bipap, add scheduled breathing tx and antihistamine Pulm consult Continue abx (Vanco / cefepime ) supportive care of comorbidities outpatient sleep study Further interventions per course Remain on tele for afib Result Diagram: 08/11/18 0530 08/11/18 0530 Results 24hrs Laboratory Tests Test 08/10/18 17:33 08/10/18 20:15 08/11/18 02:22 08/11/18 05:30 Bedside Glucose 234 H 270 H 203 White Blood Count 8.4 Red Blood Count 4.47 Hemoglobin 10.3 L Hematocrit 34.3 L Mean Corpuscular 76.7 L Volume Mean Corpuscular 23.0 L Hemoglobin Mean Corpuscular 30.0 L Hemoglobin Concent Red Cell 18.1 H Distribution Width Platelet Count 300 Mean Platelet 9.9 Volume Immature 0.200 Granulocytes % Neutrophils % 68.8 Lymphocytes % 18.0 Monocytes % 10.0 Eosinophils % 2.6 Basophils % 0.4 Nucleated Red 0.0 Blood Cells % Immature 0.020 Granulocytes # Neutrophils # 5.8 Lymphocytes # 1.5 Monocytes # 0.8 Eosinophils # 0.2 Basophils # 0.0 Nucleated Red 0.0 Blood Cells # Sodium Level 139 Potassium Level 3.9 Chloride Level 91 L Carbon Dioxide 40 H Level Anion Gap 8 Blood Urea 21 H Nitrogen Creatinine 0.54 Est Glomerular > 60 Filtrat Rate mL/min Glucose Level 198 Calcium Level 9.1 Magnesium Level 2.0 Total Bilirubin 0.4 Direct Bilirubin 0.00 Indirect Bilirubin 0.4 Aspartate Amino 13 L Transf (AST/SGOT) Alanine 24 Aminotransferase ( ALT/SGPT) Alkaline 60 Phosphatase B-Type Natriuretic 786 H Peptide Total Protein 6.8 Albumin 3.6 Globulin 3.20 Albumin/Globulin 1.12 Ratio Test 08/11/18 07:50 08/11/18 09:20 08/11/18 11:39 08/11/18 11:59 Bedside Glucose 196 182 224 H Blood Gas Specimen Blood arterial Source Arterial Blood 08/11/2018 11:40:36 Date Drawn AM Arterial Blood pH 7.368 (Temp corrected) Arterial Blood 69.9 H pCO2 (Temp correct) Arterial Blood pO2 92.4 (Temp corrected) Arterial Blood 39.3 H HCO3 Arterial Blood 11.6 H Base Excess Arterial Blood 96.4 Oxygen Saturation Harsha Test ACCEPTAB Arterial Blood Gas Right Radial Puncture Site Arterial 0.2 Blood Carboxyhemog lobin Arterial Blood 0.5 Methemoglobin Blood Gas A-a O2 39.4 H Differential Oxyhemoglobin 95.7 Percent Blood Gas 37.0 Temperature Blood Gas Modality NASAL CANNULA FiO2 30.0 Blood Gas Notified TM Whom Blood Gas Notified 08/11/2018 11:51:16 Time AM Exam/Review of Systems Exam Vitals Vital Signs Date Temp Pulse Resp B/P (MAP) Pulse Ox O2 O2 Flow FiO2 Time Delivery Rate 08/11/18 98.0 67 19 137/74 96 12:13 (95) 08/11/18 50 09:57 08/11/18 Nasal 4.0 09:10 Cannula Intake and Output 08/10/18 08/10/18 08/11/18 1515:00 23:00 07:00 IntakeIntake Total 400 ml 500 ml BalanceBalance 400 ml 500 ml Results Results 24hrs Laboratory Tests Test 08/10/18 17:33 5/1/19 20:15 08/11/18 02:22 08/11/18 05:30 Bedside Glucose 234 H 270 H 203 White Blood Count 8.4 Red Blood Count 4.47 Hemoglobin 10.3 L Hematocrit 34.3 L Mean Corpuscular 76.7 L Volume Mean Corpuscular 23.0 L Hemoglobin Mean Corpuscular 30.0 L Hemoglobin Concent Red Cell 18.1 H Distribution Width Platelet Count 300 Mean Platelet 9.9 Volume Immature 0.200 Granulocytes % Neutrophils % 68.8 Lymphocytes % 18.0 Monocytes % 10.0 Eosinophils % 2.6 Basophils % 0.4 Nucleated Red 0.0 Blood Cells % Immature 0.020 Granulocytes # Neutrophils # 5.8 Lymphocytes # 1.5 Monocytes # 0.8 Eosinophils # 0.2 Basophils # 0.0 Nucleated Red 0.0 Blood Cells # Sodium Level 139 Potassium Level 3.9 Chloride Level 91 L Carbon Dioxide 40 H Level Anion Gap 8 Blood Urea 21 H Nitrogen Creatinine 0.54 Est Glomerular > 60 Filtrat Rate mL/min Glucose Level 198 Calcium Level 9.1 Magnesium Level 2.0 Total Bilirubin 0.4 Direct Bilirubin 0.00 Indirect Bilirubin 0.4 Aspartate Amino 13 L Transf (AST/SGOT) Alanine 24 Aminotransferase ( ALT/SGPT) Alkaline 60 Phosphatase B-Type Natriuretic 786 H Peptide Total Protein 6.8 Albumin 3.6 Globulin 3.20 Albumin/Globulin 1.12 Ratio Test 08/11/18 07:50 08/11/18 09:20 08/11/18 11:39 08/11/18 11:59 Bedside Glucose 196 182 224 H Blood Gas Specimen Blood arterial Source Arterial Blood 08/11/2018 11:40:36 Date Drawn AM Arterial Blood pH 7.368 (Temp corrected) Arterial Blood 69.9 H pCO2 (Temp correct) Arterial Blood pO2 92.4 (Temp corrected) Arterial Blood 39.3 H HCO3 Arterial Blood 11.6 H Base Excess Arterial Blood 96.4 Oxygen Saturation Harsha Test ACCEPTAB Arterial Blood Gas Right Radial Puncture Site Arterial 0.2 Blood Carboxyhemog lobin Arterial Blood 0.5 Methemoglobin Blood Gas A-a O2 39.4 H Differential Oxyhemoglobin 95.7 Percent Blood Gas 37.0 Temperature Blood Gas Modality NASAL CANNULA FiO2 30.0 Blood Gas Notified TM Whom Blood Gas Notified 08/11/2018 11:51:16 Time AM Medications Medication Current Medications IV Flush (NS 3 ml) 3 ml PER PROTOCOL IV ; Start 08/08/18 at 00:00 Nitroglycerin (Nitroglycerin (Sl Tab) 0.4 Mg) 1 tab Q5M PRN SL .CHEST PAIN; Start 08/08/18 at 00:00 Acetaminophen (Tylenol Tab) 650 mg Q6H PRN PO .PAIN 1-3 OR TEMP Last administered on 08/10/18at 17:33; Admin Dose 650 MG; Start 08/08/18 at 00:00 Ipratropium [place] (Atrovent 0.02% (Neb)) 0.5 mg Q2H RESP THERAPY PRN NEB SHORTNESS OF BREATH Last administered on 08/09/18at 23:11; Admin Dose 0.5 MG; Start 08/08/18 at 00:00 Diagnostic Test (Pha) (Accu-Chek) 1 ea 02 XX Last administered on 08/10/18at 01:27; Admin Dose 1 EA; Start 08/09/18 at 02:00 Insulin Aspart (Novolog Insulin Pen) NOVOLOG *MILD* ALGORITHM WITH MEALS BEDTIME SC Last administered on 08/11/18at 12:07; Admin Dose 3 UNIT; Start 08/08/18 at 12:00 Miscellaneous Information 1 ea NOTE XX ; Start 08/08/18 at 11:30 Glucose (Glutose) 15 gm Q15M PRN PO DECREASED GLUCOSE; Start 08/08/18 at 11:30 Glucose (Glutose) 22.5 gm Q15M PRN PO DECREASED GLUCOSE; Start 08/08/18 at 11:30 Dextrose (D50w Syringe) 25 ml Q15M PRN IV DECREASED GLUCOSE; Start 08/08/18 at 11:30 Dextrose (D50w Syringe) 50 ml Q15M PRN IV DECREASED GLUCOSE; Start 08/08/18 at 11:30 Glucagon (Glucagen) 1 mg Q15M PRN IM DECREASED GLUCOSE; Start 08/08/18 at 11:30 Glucose (Glutose) 15 gm Q15M PRN BUCCAL DECREASED GLUCOSE; Start 08/08/18 at 11:30 Atorvastatin Calcium (Lipitor) 80 mg QHS PO Last administered on 08/10/18at 20:18; Admin Dose 80 MG; Start 08/08/18 at 21:00 Metoprolol Tartrate (Lopressor) 100 mg BID PO Last administered on 08/11/18 09:40; Admin Dose 100 MG; Start 08/08/18 at 14:00 Rivaroxaban (Xarelto) 20 mg WITH DINNER PO Last administered on 08/10/18 17:33; Admin Dose 20 MG; Start 08/08/18 at 18:00 Pantoprazole (Protonix Tab) 40 mg DAILY@06 PO Last administered on 08/11/18 05:23; Admin Dose 40 MG; Start 08/09/18 at 06:00 Diltiazem HCl (Cardizem) 30 mg QID PO Last administered on 08/11/18 12:48; Admin Dose 30 MG; Start 08/08/18 at 18:30 Vancomycin HCl (Vanco Iv Per Pharmacy) VANCOMYCIN PER PHARMACY PER PROTOCOL XX ; Start 08/09/18 at 12:00 Vancomycin HCl 1.25 gm/Sodium Chloride 250 ml @ 83.333 mls/ hr Q24H IVPB Last administered on 08/11/18 12:47; Admin Dose 83.333 MLS/HR; Start 08/10/18 at 13:00 Cefepime HCl 50 ml @ 100 mls/hr Q12 IVPB Last administered on 08/11/18 09:30; Admin Dose 100 MLS/HR; Start 08/10/18 at 21:00 Insulin Glargine (Lantus) 19 units DAILY@0800 SC Last administered on 08/11/18 09:26; Admin Dose 19 UNITS; Start 08/11/18 at 08:00 Insulin Aspart (Novolog Insulin Pen) 6 unit WITH MEALS SC Last administered on 08/11/18 12:07; Admin Dose 6 UNIT; Start 08/10/18 at 13:30 Acetazolamide (Diamox) 500 mg DAILY IV Last administered on 08/11/18 09:33; Admin Dose 500 MG; Start 08/11/18 at 09:00; Stop 08/13/18 at 08:59 Furosemide (Lasix) 40 mg DAILY PO Last administered on 08/11/18 09:40; Admin Dose 40 MG; Start 08/11/18 at 09:00 Digoxin (Digoxin) 0.125 mg DAILY@13 PO Last administered on 08/11/18 12:48; Admin Dose 0.125 MG; Start 08/11/18 at 13:00 MAC FRYE August 11, 2018 13:09
[2018-08-11] MEDS: LEVALBUTEROL (NEB) 0.63 MG/3 ML AMP HHN SCH ×2 (14:00→20:51)
[2018-08-11] MEDS: IPRATROPIUM (NEB) 0.5 MG/2.5 ML AMP HHN SCH ×2 (14:00→20:53)
[2018-08-11] MEDS: MONTELUKAST 10 MG TAB PO SCH ×2 (14:18→20:20)
[2018-08-11] MEDS: RIVAROXABAN 20 MG TABLET PO SCH (17:07)
[2018-08-11] MEDS: ATORVASTATIN 80 MG TAB PO SCH (20:20)
[2018-08-11] MEDS ORDERED: BUDESONIDE (NEB) 0.5MG/2ML AMP ONE (20:50)
[2018-08-12] VITALS (15 sets, daily range): BP systolic 120–140; BP diastolic 59–71; PULSE 61–85; RESP 17–18
[2018-08-12] MEDS: LEVALBUTEROL (NEB) 0.63 MG/3 ML AMP HHN SCH ×4 (01:39→19:58)
[2018-08-12] MEDS: ACCU-CHEK XX SCH (02:00)
[2018-08-12] MEDS ORDERED: BUDESONIDE (NEB) 0.5MG/2ML AMP ONE (02:34)
[2018-08-12] MEDS: IPRATROPIUM (NEB) 0.5 MG/2.5 ML AMP HHN SCH ×3 (02:34→19:58)
[2018-08-12] MEDS: PANTOPRAZOLE (EC) 40 MG TAB PO SCH (06:58)
[2018-08-12] MEDS: INSULIN ASPART [NOVOLOG] 3 ML PEN SC SCH ×7 (07:51→20:43)
[2018-08-12] MEDS: INSULIN GLARGINE [LANTus] (100 UNITS/ML) SYG SC SCH (07:52)
[2018-08-12] MEDS: ACETAZOLAMIDE 500 MG INJ IV SCH (08:39)
[2018-08-12] MEDS: CEFEPIME 1GM/50 ML (PMX) 50 ML IVPB SCH ×2 (08:39→20:40)
[2018-08-12] MEDS: FUROSEMIDE 40 MG TAB PO SCH (08:40)
[2018-08-12] MEDS: METOPROLOL 100 MG TAB PO SCH ×2 (08:40→20:40)
[2018-08-12] MEDS: DILTIAZEM 30 MG TAB PO SCH ×4 (08:41→20:41)
[2018-08-12] MEDS: IPRATROPIUM (NEB) 0.5 MG/2.5 ML AMP NEB PRN (09:52)
--- NOTE | 2018-08-12 11:14 | CONS ---
Assessment/Plan Assessment/Plan Assessment/Plan (Daily) Chest x-ray showing mild pulmonary vascular congestion bilaterally. Difficult to rule out superimposed pneumonia. ABG showing slight improvement in hypercapnia. Assessment and recommendations; 1. Patient admitted with hypercapnic respiratory failure possibly due to central hypoventilation. 2. CHF. 3. Possibly bilateral pneumonia. 4. History of developmental delay. Continue with supportive care. Repeat ABG. Continue BiPAP. Obtain follow-up chest x-ray. Further recommendations once ABG and chest x-ray are performed. Consultation Date/Type/Reason Admit Date/Time Aug 07, 2018 at 22:47 Date of Consultation: August 12, 2018 Type of Consult Pulmonary Patient is a 72-year-old lady who was admitted because of shortness of breath. Upon evaluation he was done which is showing hypercapnic respiratory failure. Patient condition has improved significantly to the point with the patient is now readily arousable and denies any shortness of breath or chest pain. Past medical history; next 1. History of developmental delay. Patient does have a caregiver. Medications; reviewed. Allergies; none. Social history; no history any smoking. Family history; noncontributory. Occupational history; patient has been on disability. Review of systems; limited review of system could be obtained. Denies any shortness of breath or chest pain. Denies any abdominal pain. General exam; elderly woman, awake, currently no distress. Date/Time of Note DATE: 08/12/18 TIME: 11:12 Past Medical History Medical History: other (See HPI) Home Meds Reported Medications Insulin Isophan/Regular (Humulin 70/30) 100 Units/Ml Susp, 40 UNIT SC AC BREAKFAST DINNER, EA 08/08/18 Metoprolol Tartrate* (Lopressor*) 100 Mg Tablet, 100 MG PO BID, #60 TAB 08/08/18 Hydralazine Hcl* (Hydralazine Hcl*) 25 Mg Tab, 25 MG PO BID, #60 TAB 08/08/18 Metformin Hcl* (Metformin Hcl*) 1,000 Mg Tablet, 1000 MG PO WITH BREAKFAST DINNE, #60 TAB 08/08/18 Atorvastatin* (Atorvastatin*) 80 Mg Tablet, 80 MG PO QHS, #30 TAB 08/08/18 Esomeprazole Mag Trihydrate (Nexium) 20 Mg Capsule.dr, 20 MG PO DAILY, #30 CAP 08/08/18 Furosemide* (Furosemide*) 20 Mg Tablet, 20 MG PO DAILY, #60 TAB 08/08/18 Amlodipine Besylate* (Norvasc*) 5 Mg Tablet, 5 MG PO DAILY, TAB 08/08/18 Losartan Potassium* (Losartan Potassium*) 100 Mg Tablet, 100 MG PO DAILY, TAB 08/08/18 Rivaroxaban* (Xarelto*) 20 Mg Tablet, 20 MG PO WITH DINNER, TAB 08/08/18 Medications Current Medications IV Flush (NS 3 ml) 3 ml PER PROTOCOL IV ; Start 08/08/18 at 00:00 Nitroglycerin (Nitroglycerin (Sl Tab) 0.4 Mg) 1 tab Q5M PRN SL .CHEST PAIN; Start 08/08/18 at 00:00 Acetaminophen (Tylenol Tab) 650 mg Q6H PRN PO .PAIN 1-3 OR TEMP Last administered on 08/10/18at 17:33; Admin Dose 650 MG; Start 08/08/18 at 00:00 Ipratropium [place] (Atrovent 0.02% (Neb)) 0.5 mg Q2H RESP THERAPY PRN NEB CHRIS RTNESS OF BREATH Last administered on 08/12/18at 09:52; Admin Dose 0.5 MG; Start 08/08/18 at 00:00 Diagnostic Test (Pha) (Accu-Chek) 1 ea 02 XX Last administered on 08/10/18at 01:27; Admin Dose 1 EA; Start 08/09/18 at 02:00 Insulin Aspart (Novolog Insulin Pen) NOVOLOG *MILD* ALGORITHM WITH MEALS BEDTI ME SC Last administered on 08/12/18at 07:51; Admin Dose 3 UNIT; Start 08/08/18 at 12:00 Miscellaneous Information 1 ea NOTE XX ; Start 08/08/18 at 11:30 Glucose (Glutose) 15 gm Q15M PRN PO DECREASED GLUCOSE; Start 08/08/18 at 11:30 Glucose (Glutose) 22.5 gm Q15M PRN PO DECREASED GLUCOSE; Start 08/08/18 at 11:30 Dextrose (D50w Syringe) 25 ml Q15M PRN IV DECREASED GLUCOSE; Start 08/08/18 at 11:30 Dextrose (D50w Syringe) 50 ml Q15M PRN IV DECREASED GLUCOSE; Start 08/08/18 at 11:30 Glucagon (Glucagen) 1 mg Q15M PRN IM DECREASED GLUCOSE; Start 08/08/18 at 11:30 Glucose (Glutose) 15 gm Q15M PRN BUCCAL DECREASED GLUCOSE; Start 08/08/18 at 11:30 Atorvastatin Calcium (Lipitor) 80 mg QHS PO Last administered on 08/11/18 20:20; Admin Dose 80 MG; Start 08/08/18 at 21:00 Metoprolol Tartrate (Lopressor) 100 mg BID PO Last administered on 08/12/18 08:40; Admin Dose 100 MG; Start 08/08/18 at 14:00 Rivaroxaban (Xarelto) 20 mg WITH DINNER PO Last administered on 08/11/18 17:07; Admin Dose 20 MG; Start 08/08/18 at 18:00 Pantoprazole (Protonix Tab) 40 mg DAILY@06 PO Last administered on 08/12/18 06:58; Admin Dose 40 MG; Start 08/09/18 at 06:00 Diltiazem HCl (Cardizem) 30 mg QID PO Last administered on 08/12/18 08:41; Admin Dose 30 MG; Start 08/08/18 at 18:30 Vancomycin HCl (Vanco Iv Per Pharmacy) VANCOMYCIN PER PHARMACY PER PROTOCOL XX ; Start 08/09/18 at 12:00 Vancomycin HCl 1.25 gm/Sodium Chloride 250 ml @ 83.333 mls/ hr Q24H IVPB Last administered on 08/11/18 12:47; Admin Dose 83.333 MLS/HR; Start 08/10/18 at 13:00 Cefepime HCl 50 ml @ 100 mls/hr Q12 IVPB Last administered on 08/12/18 08:39; Admin Dose 100 MLS/HR; Start 08/10/18 at 21:00 Insulin Glargine (Lantus) 19 units DAILY@0800 SC Last administered on 08/12/18 07:52; Admin Dose 19 UNITS; Start 08/11/18 at 08:00 Insulin Aspart (Novolog Insulin Pen) 6 unit WITH MEALS SC Last administered on 08/12/18 07:51; Admin Dose 6 UNIT; Start 08/10/18 at 13:30 Acetazolamide (Diamox) 500 mg DAILY IV Last administered on 08/12/18 08:39; Admin Dose 500 MG; Start 08/11/18 at 09:00; Stop 08/13/18 at 08:59 Furosemide (Lasix) 40 mg DAILY PO Last administered on 08/12/18at 08:40; Admin Dose 40 MG; Start 08/11/18 at 09:00 Digoxin (Digoxin) 0.125 mg DAILY@13 PO Last administered on 08/11/18at 12:48; Admin Dose 0.125 MG; Start 08/11/18 at 13:00 Levalbuterol (Xopenex Neb) 0.63 mg Q6H RESP THERAPY HHN Last administered on 08/12/18at 09:51; Admin Dose 0.63 MG; Start 08/11/18 at 14:00; Stop 08/14/18 at 13:59 Ipratropium [place] (Atrovent 0.02% (Neb)) 0.5 mg Q6HWA RESP THERAPY HHN Last administered on 08/12/18at 02:34; Admin Dose 0.5 MG; Start 08/11/18 at 14:00; Stop 08/14/18 at 13:59 Montelukast Sodium (Singulair) 10 mg HS PO Last administered on 08/11/18at 20:20; Admin Dose 10 MG; Start 08/11/18 at 13:30 Miscellaneous Information (*Rx Drug Level Order Reminder*) VANCO TR LEVEL PRIOR... 1200 ONCE XX ; Start 08/12/18 at 12:00; Stop 08/12/18 at 12:01 Allergies: Coded Allergies: No Known Allergy (Unverified , 08/10/18) Past Surgical History Past Surgical Hx: other (See HPI) Social History Alcohol Use: other (Unknown) Smoking Status: Unknown if ever smoked Drug Use: other (Unknown) Exam/Review of Systems Exam Vitals Vital Signs Date Temp Pulse Resp B/P (MAP) Pulse Ox O2 O2 Flow FiO2 Time Delivery Rate 08/12/18 84 08:00 08/12/18 98.6 18 135/65 96 07:46 (88) 08/12/18 3.0 31 04:15 08/12/18 Aerosol 02:45 Mask Intake and Output 08/11/18 08/11/18 08/12/18 1515:00 23:00 07:00 IntakeIntake Total 650 ml 500 ml BalanceBalance 650 ml 500 ml Exam HEENT exam; supple neck, positive JVD. No lymphadenopathy. Midline trachea. No thyromegaly. Patient does have carious teeth. Chest exam; diminished but clear breath sounds. S1-S2 audible, no murmurs. Re gular rhythm. Abdomen exam; soft, nontender. No organomegaly. Bowel sounds audible. Extremity exam; no peripheral edema clubbing. PEDIATRIC LICENSED PRACTICAL NURSE exam; no focal motor deficit. Results Result Diagram: 08/11/18 0530 08/12/18 0509 Results 24hrs Laboratory Tests Test 08/11/18 11:39 08/11/18 11:59 08/11/18 17:03 08/11/18 20:23 Blood Gas Specimen Blood arterial Source Arterial Blood 08/11/2018 11:40:36 Date Drawn AM Arterial Blood pH 7.368 (Temp corrected) Arterial Blood 69.9 H pCO2 (Temp correct) Arterial Blood pO2 92.4 (Temp corrected) Arterial Blood 39.3 H HCO3 Arterial Blood 11.6 H Base Excess Arterial Blood 96.4 Oxygen Saturation Harsha Test ACCEPTAB Arterial Blood Gas Right Radial Puncture Site Arterial 0.2 Blood Carboxyhemog lobin Arterial Blood 0.5 Methemoglobin Blood Gas A-a O2 39.4 H Differential Oxyhemoglobin 95.7 Percent Blood Gas 37.0 Temperature Blood Gas Modality NASAL CANNULA FiO2 30.0 Blood Gas Notified TM Whom Blood Gas Notified 08/11/2018 11:51:16 Time AM Bedside Glucose 224 H 248 H 358 H Test 08/12/18 02:26 08/12/18 05:09 08/12/18 07:34 Bedside Glucose 248 H 245 H Sodium Level 136 Potassium Level 4.5 Chloride Level 96 L Carbon Dioxide 34 H Level Anion Gap 6 Blood Urea 19 Nitrogen Creatinine 0.67 Est Glomerular > 60 Filtrat Rate mL/min Glucose Level 240 H Calcium Level 9.3 Magnesium Level 2.1 Total Bilirubin 0.4 Direct Bilirubin 0.00 Indirect Bilirubin 0.4 Aspartate Amino 16 Transf (AST/SGOT) Alanine 12 L Aminotransferase ( ALT/SGPT) Alkaline 55 Phosphatase B-Type Natriuretic 1570 H Peptide Total Protein 6.3 Albumin 3.5 Globulin 2.80 Albumin/Globulin 1.25 Ratio Medications Medication Current Medications IV Flush (NS 3 ml) 3 ml PER PROTOCOL IV ; Start 08/08/18 at 00:00 Nitroglycerin (Nitroglycerin (Sl Tab) 0.4 Mg) 1 tab Q5M PRN SL .CHEST PAIN; Start 08/08/18 at 00:00 Acetaminophen (Tylenol Tab) 650 mg Q6H PRN PO .PAIN 1-3 OR TEMP Last administered on 08/10/18 17:33; Admin Dose 650 MG; Start 08/08/18 at 00:00 Ipratropium [place] (Atrovent 0.02% (Neb)) 0.5 mg Q2H RESP THERAPY PRN NEB SHORTNESS OF BREATH Last administered on 08/12/18 09:52; Admin Dose 0.5 MG; Start 08/08/18 at 00:00 Diagnostic Test (Pha) (Accu-Chek) 1 ea 02 XX Last administered on 08/10/18 01:27; Admin Dose 1 EA; Start 08/09/18 at 02:00 Insulin Aspart (Novolog Insulin Pen) NOVOLOG *MILD* ALGORITHM WITH MEALS BEDTIME SC Last administered on 08/12/18 07:51; Admin Dose 3 UNIT; Start 08/08/18 at 12:00 Miscellaneous Information 1 ea NOTE XX ; Start 08/08/18 at 11:30 Glucose (Glutose) 15 gm Q15M PRN PO DECREASED GLUCOSE; Start 08/08/18 at 11:30 Glucose (Glutose) 22.5 gm Q15M PRN PO DECREASED GLUCOSE; Start 08/08/18 at 11:30 Dextrose (D50w Syringe) 25 ml Q15M PRN IV DECREASED GLUCOSE; Start 08/08/18 at 11:30 Dextrose (D50w Syringe) 50 ml Q15M PRN IV DECREASED GLUCOSE; Start 08/08/18 at 11:30 Glucagon (Glucagen) 1 mg Q15M PRN IM DECREASED GLUCOSE; Start 08/08/18 at 11:30 Glucose (Glutose) 15 gm Q15M PRN BUCCAL DECREASED GLUCOSE; Start 08/08/18 at 11:30 Atorvastatin Calcium (Lipitor) 80 mg QHS PO Last administered on 08/11/18at 20:20; Admin Dose 80 MG; Start 08/08/18 at 21:00 Metoprolol Tartrate (Lopressor) 100 mg BID PO Last administered on 08/12/18 08:40; Admin Dose 100 MG; Start 08/08/18 at 14:00 Rivaroxaban (Xarelto) 20 mg WITH DINNER PO Last administered on 08/11/18 17:07; Admin Dose 20 MG; Start 08/08/18 at 18:00 Pantoprazole (Protonix Tab) 40 mg DAILY@06 PO Last administered on 08/12/18 06:58; Admin Dose 40 MG; Start 08/09/18 at 06:00 Diltiazem HCl (Cardizem) 30 mg QID PO Last administered on 08/12/18 08:41; Admin Dose 30 MG; Start 08/08/18 at 18:30 Vancomycin HCl (Vanco Iv Per Pharmacy) VANCOMYCIN PER PHARMACY PER PROTOCOL XX ; Start 08/09/18 at 12:00 Vancomycin HCl 1.25 gm/Sodium Chloride 250 ml @ 83.333 mls/ hr Q24H IVPB Last administered on 08/11/18 12:47; Admin Dose 83.333 MLS/HR; Start 08/10/18 at 13:00 Cefepime HCl 50 ml @ 100 mls/hr Q12 IVPB Last administered on 08/12/18 08:39; Admin Dose 100 MLS/HR; Start 08/10/18 at 21:00 Insulin Glargine (Lantus) 19 units DAILY@0800 SC Last administered on 08/12/18 07:52; Admin Dose 19 UNITS; Start 08/11/18 at 08:00 Insulin Aspart (Novolog Insulin Pen) 6 unit WITH MEALS SC Last administered on 08/12/18 07:51; Admin Dose 6 UNIT; Start 08/10/18 at 13:30 Acetazolamide (Diamox) 500 mg DAILY IV Last administered on 08/12/18 08:39; Admin Dose 500 MG; Start 08/11/18 at 09:00; Stop 08/13/18 at 08:59 Furosemide (Lasix) 40 mg DAILY PO Last administered on 08/12/18 08:40; Admin Dose 40 MG; Start 08/11/18 at 09:00 Digoxin (Digoxin) 0.125 mg DAILY@13 PO Last administered on 08/11/18 12:48; Admin Dose 0.125 MG; Start 08/11/18 at 13:00 Levalbuterol (Xopenex Neb) 0.63 mg Q6H RESP THERAPY HHN Last administered on 5/3/19at 09:51; Admin Dose 0.63 MG; Start 08/11/18 at 14:00; Stop 08/14/18 at 13:59 Ipratropium [place] (Atrovent 0.02% (Neb)) 0.5 mg Q6HWA RESP THERAPY HHN Last administered on 08/12/18at 02:34; Admin Dose 0.5 MG; Start 08/11/18 at 14:00; Stop 08/14/18 at 13:59 Montelukast Sodium (Singulair) 10 mg HS PO Last administered on 08/11/18at 20:20; Admin Dose 10 MG; Start 08/11/18 at 13:30 Miscellaneous Information (*Rx Drug Level Order Reminder*) VANCO TR LEVEL AK IOR... 1200 ONCE XX ; Start 08/12/18 at 12:00; Stop 08/12/18 at 12:01 ROMMEL JERNIGAN August 12, 2018 11:14
--- NOTE | 2018-08-12 11:42 | PN ---
Date/Time of Note Date/Time of Note DATE: 08/12/18 TIME: 11:36 Assessment/Plan VTE Prophylaxis Risk score (from Nsg)>0 risk: 8 Pharmacological prophylaxis: apixaban Lines/Catheters IV Catheter Type (from Nrsg): Saline Lock Urinary Cath still in place: No Assessment/Plan Hospital Course S: no new issues, has been off bipap since yesterday, maintained on 3L, afib rate has been well controlled O: Constitutional: alert, obese Psych: anxiety Head: normocephalic, atraumatic Eyes: PERRL Respiratory: diminished breath sounds; No crackles/rales, No labored breathing, No wheezing Cardiovascular: irregular rhythm; No murmurs/extra sounds Gastrointestinal: soft, non-tender, bowel sounds, distended Extremities: edema, tenderness and erythema improved Neurological: No confused Skin: other (See above) assessment and plan: 72-year-old morbidly obese female who was brought in from home via ambulance because of shortness of breath and is admitted and managed as follows: 1. Acute hypercapnic respiratory failure: Improved, now on 3L 2. Acute CHF exacerbation, acute on chronic, diastolic, preserved ejection fraction 3. Atrial fibrillation with improved rate control 4. Hypertension 5. Diabetes 6. Developmental delay 7. Chronic debility, ambulates with walker 8. Morbid obesity 9. 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 Xarelto therapy 11. Hypochromasia microcytosis, rule out iron deficiency 12. Ganesh bronchitis with 13. LE cellulitis Plan: continue diuresis -Pulmonary is switching back to IV Has been weaned off bipap but is still on3L , continue scheduled breathing tx, abx and antihistamine Continue abx (Vanco / cefepime ) supportive care of comorbidities outpatient sleep study Further interventions per course Remain on tele for afib Dispo: The patient unfortunately has only restricted Medi-Jose, hence she is not a candidate for home oxygen or even home physical therapy at this time. 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 In the interim, we have to work on getting her back to baseline before discharge as she is not able to get any form of home health or home oxygen. Patient is morbidly obese, but was ambulant with a walker on room air prior to admission. Hopefully PT will see her today. It Result Diagram: 08/11/18 0530 08/12/18 0509 Results 24hrs Laboratory Tests Test 08/11/18 11:39 08/11/18 11:59 08/11/18 17:03 08/11/18 20:23 Blood Gas Specimen Blood arterial Source Arterial Blood 08/11/2018 11:40:36 Date Drawn AM Arterial Blood pH 7.368 (Temp corrected) Arterial Blood 69.9 H pCO2 (Temp correct) Arterial Blood pO2 92.4 (Temp corrected) Arterial Blood 39.3 H HCO3 Arterial Blood 11.6 H Base Excess Arterial Blood 96.4 Oxygen Saturation Harsha Test ACCEPTAB Arterial Blood Gas Right Radial Puncture Site Arterial 0.2 Blood Carboxyhemog lobin Arterial Blood 0.5 Methemoglobin Blood Gas A-a O2 39.4 H Differential Oxyhemoglobin 95.7 Percent Blood Gas 37.0 Temperature Blood Gas Modality NASAL CANNULA FiO2 30.0 Blood Gas Notified TM Whom Blood Gas Notified 08/11/2018 11:51:16 Time AM Bedside Glucose 224 H 248 H 358 H Test 08/12/18 02:26 08/12/18 05:09 08/12/18 07:34 Bedside Glucose 248 H 245 H Sodium Level 136 Potassium Level 4.5 Chloride Level 96 L Carbon Dioxide 34 H Level Anion Gap 6 Blood Urea 19 Nitrogen Creatinine 0.67 Est Glomerular > 60 Filtrat Rate mL/min Glucose Level 240 H Calcium Level 9.3 Magnesium Level 2.1 Total Bilirubin 0.4 Direct Bilirubin 0.00 Indirect Bilirubin 0.4 Aspartate Amino 16 Transf (AST/SGOT) Alanine 12 L Aminotransferase ( ALT/SGPT) Alkaline 55 Phosphatase B-Type Natriuretic 1570 H Peptide Total Protein 6.3 Albumin 3.5 Globulin 2.80 Albumin/Globulin 1.25 Ratio Exam/Review of Systems Exam Vitals Vital Signs Date Temp Pulse Resp B/P (MAP) Pulse Ox O2 O2 Flow FiO2 Time Delivery Rate 08/12/18 84 08:00 08/12/18 98.6 18 135/65 96 07:46 (88) 08/12/18 3.0 31 04:15 08/12/18 Aerosol 02:45 Mask Intake and Output 08/11/18 08/11/18 08/12/18 1515:00 23:00 07:00 IntakeIntake Total 650 ml 500 ml BalanceBalance 650 ml 500 ml Results Results 24hrs Laboratory Tests Test 08/11/18 11:39 08/11/18 11:59 08/11/18 17:03 08/11/18 20:23 Blood Gas Specimen Blood arterial Source Arterial Blood 08/11/2018 11:40:36 Date Drawn AM Arterial Blood pH 7.368 (Temp corrected) Arterial Blood 69.9 H pCO2 (Temp correct) Arterial Blood pO2 92.4 (Temp corrected) Arterial Blood 39.3 H HCO3 Arterial Blood 11.6 H Base Excess Arterial Blood 96.4 Oxygen Saturation Harsha Test ACCEPTAB Arterial Blood Gas Right Radial Puncture Site Arterial 0.2 Blood Carboxyhemog lobin Arterial Blood 0.5 Methemoglobin Blood Gas A-a O2 39.4 H Differential Oxyhemoglobin 95.7 Percent Blood Gas 37.0 Temperature Blood Gas Modality NASAL CANNULA FiO2 30.0 Blood Gas Notified TM Whom Blood Gas Notified 08/11/2018 11:51:16 Time AM Bedside Glucose 224 H 248 H 358 H Test 08/12/18 02:26 08/12/18 05:09 08/12/18 07:34 Bedside Glucose 248 H 245 H Sodium Level 136 Potassium Level 4.5 Chloride Level 96 L Carbon Dioxide 34 H Level Anion Gap 6 Blood Urea 19 Nitrogen Creatinine 0.67 Est Glomerular > 60 Filtrat Rate mL/min Glucose Level 240 H Calcium Level 9.3 Magnesium Level 2.1 Total Bilirubin 0.4 Direct Bilirubin 0.00 Indirect Bilirubin 0.4 Aspartate Amino 16 Transf (AST/SGOT) Alanine 12 L Aminotransferase ( ALT/SGPT) Alkaline 55 Phosphatase B-Type Natriuretic 1570 H Peptide Total Protein 6.3 Albumin 3.5 Globulin 2.80 Albumin/Globulin 1.25 Ratio Medications Medication Current Medications IV Flush (NS 3 ml) 3 ml PER PROTOCOL IV ; Start 08/08/18 at 00:00 Nitroglycerin (Nitroglycerin (Sl Tab) 0.4 Mg) 1 tab Q5M PRN SL .CHEST PAIN; Start 08/08/18 at 00:00 Acetaminophen (Tylenol Tab) 650 mg Q6H PRN PO .PAIN 1-3 OR TEMP Last administered on 08/10/18at 17:33; Admin Dose 650 MG; Start 08/08/18 at 00:[address] [place] (Atrovent 0.02% (Neb)) 0.5 mg Q2H RESP THERAPY PRN NEB SHORTNESS OF BREATH Last administered on 5/3/19at 09:52; Admin Dose 0.5 MG; Start 08/08/18 at 00:00 Diagnostic Test (Pha) (Accu-Chek) 1 ea 02 XX Last administered on 08/10/18 01:27; Admin Dose 1 EA; Start 08/09/18 at 02:00 Insulin Aspart (Novolog Insulin Pen) NOVOLOG *MILD* ALGORITHM WITH MEALS BEDTIME SC Last administered on 08/12/18 07:51; Admin Dose 3 UNIT; Start 08/08/18 at 12:00 Miscellaneous Information 1 ea NOTE XX ; Start 08/08/18 at 11:30 Glucose (Glutose) 15 gm Q15M PRN PO DECREASED GLUCOSE; Start 08/08/18 at 11:30 Glucose (Glutose) 22.5 gm Q15M PRN PO DECREASED GLUCOSE; Start 08/08/18 at 11:30 Dextrose (D50w Syringe) 25 ml Q15M PRN IV DECREASED GLUCOSE; Start 08/08/18 at 11:30 Dextrose (D50w Syringe) 50 ml Q15M PRN IV DECREASED GLUCOSE; Start 08/08/18 at 11:30 Glucagon (Glucagen) 1 mg Q15M PRN IM DECREASED GLUCOSE; Start 08/08/18 at 11:30 Glucose (Glutose) 15 gm Q15M PRN BUCCAL DECREASED GLUCOSE; Start 08/08/18 at 11:30 Atorvastatin Calcium (Lipitor) 80 mg QHS PO Last administered on 08/11/18 20:20; Admin Dose 80 MG; Start 08/08/18 at 21:00 Metoprolol Tartrate (Lopressor) 100 mg BID PO Last administered on 08/12/18 08:40; Admin Dose 100 MG; Start 08/08/18 at 14:00 Rivaroxaban (Xarelto) 20 mg WITH DINNER PO Last administered on 08/11/18 17:07; Admin Dose 20 MG; Start 08/08/18 at 18:00 Pantoprazole (Protonix Tab) 40 mg DAILY@06 PO Last administered on 08/12/18 06:58; Admin Dose 40 MG; Start 08/09/18 at 06:00 Diltiazem HCl (Cardizem) 30 mg QID PO Last administered on 08/12/18 08:41; Admin Dose 30 MG; Start 08/08/18 at 18:30 Vancomycin HCl (Vanco Iv Per Pharmacy) VANCOMYCIN PER PHARMACY PER PROTOCOL XX ; Start 08/09/18 at 12:00 Vancomycin HCl 1.25 gm/Sodium Chloride 250 ml @ 83.333 mls/ hr Q24H IVPB Last administered on 08/11/18 12:47; Admin Dose 83.333 MLS/HR; Start 08/10/18 at 13:00 Cefepime HCl 50 ml @ 100 mls/hr Q12 IVPB Last administered on 08/12/18 08:39; Admin Dose 100 MLS/HR; Start 08/10/18 at 21:00 Insulin Glargine (Lantus) 19 units DAILY@0800 SC Last administered on 08/12/18 07:52; Admin Dose 19 UNITS; Start 08/11/18 at 08:00 Insulin Aspart (Novolog Insulin Pen) 6 unit WITH MEALS SC Last administered on 08/12/18 07:51; Admin Dose 6 UNIT; Start 08/10/18 at 13:30 Acetazolamide (Diamox) 500 mg DAILY IV Last administered on 08/12/18 08:39; Admin Dose 500 MG; Start 08/11/18 at 09:00; Stop 08/13/18 at 08:59 Digoxin (Digoxin) 0.125 mg DAILY@13 PO Last administered on 08/11/18 12:48; Admin Dose 0.125 MG; Start 08/11/18 at 13:00 Levalbuterol (Xopenex Neb) 0.63 mg Q6H RESP THERAPY HHN Last administered on 08/12/18 09:51; Admin Dose 0.63 MG; Start 08/11/18 at 14:00; Stop 08/14/18 at 13:[address] [place] (Atrovent 0.02% (Neb)) 0.5 mg Q6HWA RESP THERAPY HHN Last administered on 08/12/18 02:34; Admin Dose 0.5 MG; Start 08/11/18 at 14:00; Stop 08/14/18 at 13:59 Montelukast Sodium (Singulair) 10 mg HS PO Last administered on 08/11/18 20:20; Admin Dose 10 MG; Start 08/11/18 at 13:30 Miscellaneous Information (*Rx Drug Level Order Reminder*) VANCO TR LEVEL PRIOR... 1200 ONCE XX ; Start 08/12/18 at 12:00; Stop 08/12/18 at 12:01 Furosemide (Lasix) 40 mg DAILY@0600 IV ; Start 08/12/18 at 11:30 MAC FRYE August 12, 2018 11:42
[2018-08-12] MEDS: VANCOMYCIN HCL 1.25 GM in SOD CHLORIDE 0.9% 250 ML IVPB SCH (12:15)
[2018-08-12] MEDS: DIGOXIN 0.125 MG TAB PO SCH (12:15)
[2018-08-12] MEDS: FUROSEMIDE 40 MG INJ IV SCH (12:16)
[2018-08-12] MEDS: SOD FERRIC GLUC COMPLX 125 MG in SOD CHLORIDE 0.9% 100 ML IVPB SCH (15:22)
--- NOTE | 2018-08-12 15:25 | CONS ---
Consult Date/Type/Reason Admit Date/Time Aug 07, 2018 at 22:47 Initial Consult Date 08/08/18 Type of Consultation: cv Requesting Provider: MAC FRYE Date/Time of Note DATE: 08/12/18 TIME: 15:23 Subjective Cardiology follow-up progress note Subjective: Discussed with the staff and telemetry was reviewed. Patient with atrial fibrillation heart rate is under good control now. Patient is a poor historian but no report of chest pain or pressure less resp distress and off BIPAP now only on O2 nc Objective: General: Obese female HEENT: NC/AT. pupils are equal. round. NECK: Unable to assess for JVD. no stridor. CV: Irregularly irregular systolic murmur; no gallop or rubs. PULM: no wheezing . mild rhonchi. GI: SOFT, NT, ND, no rebound or guarding Extremity: + trace B/L LE edema. no clubbing. neuro: awake and alert, OX2. Psych: calm and pleasant rectal: deferred EKG showed atrial fibrillation. Low voltage. Echocardiogram was personally reviewed which shows: There is mild enlargement of left atrium. Normal left ventricular systolic function. Normal left ventricular cavity size. Mild concentric left ventricular hypertrophy. Ejection fraction is visually estimated at 60 %. Abnormal Diastolic Function. Normal appearance and function of the mitral valve with trace physiologic regurgitation. Normal appearance of the aortic valve. No significant aortic stenosis or insufficiency. Normal appearance of the tricuspid valve. Estimated peak PA systolic pressure 45 mmHg. There is mild tricuspid regurgitation. Dilated IVC without respiratory collapse consistent with elevated right atrial pressure. CT of the chest shows: 1. Bilateral bronchial wall thickening and areas of air trapping are seen, suggestive of bronchitis / bronchiolitis. 2. Mild cardiomegaly. Coronary arterial and aortic atherosclerotic calcifications. 3. No evidence of mass, lymphadenopathy, or acute infiltrate. 4. Hepatic steatosis. Objective Vitals Vital Signs Date Temp Pulse Resp B/P (MAP) Pulse Ox O2 O2 Flow FiO2 Time Delivery Rate 08/12/18 84 12:00 08/12/18 98.7 18 129/70 98 11:55 (89) 08/12/18 3.0 31 04:15 08/12/18 Aerosol 02:45 Mask Intake and Output 08/11/18 08/11/18 08/12/18 1515:00 23:00 07:00 IntakeIntake Total 650 ml 500 ml BalanceBalance 650 ml 500 ml Results/Medications Result Diagram: 08/11/18 0530 08/12/18 0509 Results 24 hrs Laboratory Tests Test 08/11/18 17:03 08/11/18 20:23 08/12/18 02:26 08/12/18 05:09 Bedside Glucose 248 H 358 H 248 H Sodium Level 136 Potassium Level 4.5 Chloride Level 96 L Carbon Dioxide 34 H Level Anion Gap 6 Blood Urea 19 Nitrogen Creatinine 0.67 Est Glomerular > 60 Filtrat Rate mL/min Glucose Level 240 H Calcium Level 9.3 Magnesium Level 2.1 Total Bilirubin 0.4 Direct Bilirubin 0.00 Indirect Bilirubin 0.4 Aspartate Amino 16 Transf (AST/SGOT) Alanine 12 L Aminotransferase ( ALT/SGPT) Alkaline 55 Phosphatase B-Type Natriuretic 1570 H Peptide Total Protein 6.3 Albumin 3.5 Globulin 2.80 Albumin/Globulin 1.25 Ratio Test 08/12/18 07:34 08/12/18 11:10 08/12/18 11:44 08/12/18 12:12 Bedside Glucose 245 H 290 H Blood Gas Specimen Blood arterial Source Arterial Blood 08/12/2018 11:50:20 Date Drawn AM Arterial Blood pH 7.340 L (Temp corrected) Arterial Blood 66.2 H pCO2 (Temp correct) Arterial Blood pO2 80.5 (Temp corrected) Arterial Blood 34.9 H HCO3 Arterial Blood 7.3 H Base Excess Arterial Blood 94.4 L Oxygen Saturation Harsha Test ACCEPTAB Arterial Blood Gas Right Radial Puncture Site Arterial 0.1 Blood Carboxyhemog lobin Arterial Blood 0.6 Methemoglobin Blood Gas A-a O2 33.7 H Differential Oxyhemoglobin 93.7 Percent Blood Gas 37.0 Temperature Blood Gas Modality NASAL CANNULA FiO2 27.0 Blood Gas Notified TM Whom Blood Gas Notified 08/12/2018 12:04:06 Time PM Vancomycin Level 5.6 L Trough Home Meds Reported Medications Insulin Isophan/Regular (Humulin 70/30) 100 Units/Ml Susp, 40 UNIT SC AC BREAKFAST DINNER, EA 08/08/18 Metoprolol Tartrate* (Lopressor*) 100 Mg Tablet, 100 MG PO BID, #60 TAB 08/08/18 Hydralazine Hcl* (Hydralazine Hcl*) 25 Mg Tab, 25 MG PO BID, #60 TAB 08/08/18 Metformin Hcl* (Metformin Hcl*) 1,000 Mg Tablet, 1000 MG PO WITH BREAKFAST DINNE, #60 TAB 08/08/18 Atorvastatin* (Atorvastatin*) 80 Mg Tablet, 80 MG PO QHS, #30 TAB 08/08/18 Esomeprazole Mag Trihydrate (Nexium) 20 Mg Capsule.dr, 20 MG PO DAILY, #30 CAP 08/08/18 Furosemide* (Furosemide*) 20 Mg Tablet, 20 MG PO DAILY, #60 TAB 08/08/18 Amlodipine Besylate* (Norvasc*) 5 Mg Tablet, 5 MG PO DAILY, TAB 08/08/18 Losartan Potassium* (Losartan Potassium*) 100 Mg Tablet, 100 MG PO DAILY, TAB 08/08/18 Rivaroxaban* (Xarelto*) 20 Mg Tablet, 20 MG PO WITH DINNER, TAB 08/08/18 Medications Current Medications IV Flush (NS 3 ml) 3 ml PER PROTOCOL IV ; Start 08/08/18 at 00:00 Nitroglycerin (Nitroglycerin (Sl Tab) 0.4 Mg) 1 tab Q5M PRN SL .CHEST PAIN; Start 08/08/18 at 00:00 Acetaminophen (Tylenol Tab) 650 mg Q6H PRN PO .PAIN 1-3 OR TEMP Last administered on 08/10/18at 17:33; Admin Dose 650 MG; Start 08/08/18 at 00:00 Ipratropium [place] (Atrovent 0.02% (Neb)) 0.5 mg Q2H RESP THERAPY PRN NEB SHORTNESS OF BREATH Last administered on 08/12/18at 09:52; Admin Dose 0.5 MG; Start 08/08/18 at 00:00 Diagnostic Test (Pha) (Accu-Chek) 1 ea 02 XX Last administered on 08/10/18at 01:27; Admin Dose 1 EA; Start 08/09/18 at 02:00 Insulin Aspart (Novolog Insulin Pen) NOVOLOG *MILD* ALGORITHM WITH MEALS BEDTIME SC Last administered on 08/12/18at 11:48; Admin Dose 4 UNIT; Start 08/08/18 at 12:00 Miscellaneous Information 1 ea NOTE XX ; Start 08/08/18 at 11:30 Glucose (Glutose) 15 gm Q15M PRN PO DECREASED GLUCOSE; Start 08/08/18 at 11:30 Glucose (Glutose) 22.5 gm Q15M PRN PO DECREASED GLUCOSE; Start 08/08/18 at 11:30 Dextrose (D50w Syringe) 25 ml Q15M PRN IV DECREASED GLUCOSE; Start 08/08/18 at 11:30 Dextrose (D50w Syringe) 50 ml Q15M PRN IV DECREASED GLUCOSE; Start 08/08/18 at 11:30 Glucagon (Glucagen) 1 mg Q15M PRN IM DECREASED GLUCOSE; Start 08/08/18 at 11:30 Glucose (Glutose) 15 gm Q15M PRN BUCCAL DECREASED GLUCOSE; Start 08/08/18 at 11:30 Atorvastatin Calcium (Lipitor) 80 mg QHS PO Last administered on 08/11/18 20:20; Admin Dose 80 MG; Start 08/08/18 at 21:00 Metoprolol Tartrate (Lopressor) 100 mg BID PO Last administered on 08/12/18 08:40; Admin Dose 100 MG; Start 08/08/18 at 14:00 Rivaroxaban (Xarelto) 20 mg WITH DINNER PO Last administered on 08/11/18 17:07; Admin Dose 20 MG; Start 08/08/18 at 18:00 Pantoprazole (Protonix Tab) 40 mg DAILY@06 PO Last administered on 08/12/18 06:58; Admin Dose 40 MG; Start 08/09/18 at 06:00 Diltiazem HCl (Cardizem) 30 mg QID PO Last administered on 08/12/18 12:15; Admin Dose 30 MG; Start 08/08/18 at 18:30 Vancomycin HCl (Vanco Iv Per Pharmacy) VANCOMYCIN PER PHARMACY PER PROTOCOL XX ; Start 08/09/18 at 12:00 Cefepime HCl 50 ml @ 100 mls/hr Q12 IVPB Last administered on 08/12/18 08:39; Admin Dose 100 MLS/HR; Start 08/10/18 at 21:00 Insulin Glargine (Lantus) 19 units DAILY@0800 SC Last administered on 08/12/18 07:52; Admin Dose 19 UNITS; Start 08/11/18 at 08:00 Insulin Aspart (Novolog Insulin Pen) 6 unit WITH MEALS SC Last administered on 08/12/18 11:48; Admin Dose 6 UNIT; Start 08/10/18 at 13:30 Acetazolamide (Diamox) 500 mg DAILY IV Last administered on 08/12/18 08:39; Admin Dose 500 MG; Start 08/11/18 at 09:00; Stop 08/13/18 at 08:59 Digoxin (Digoxin) 0.125 mg DAILY@13 PO Last administered on 08/12/18at 12:15; Admin Dose 0.125 MG; Start 08/11/18 at 13:00 Levalbuterol (Xopenex Neb) 0.63 mg Q6H RESP THERAPY HHN Last administered on 08/12/18at 09:51; Admin Dose 0.63 MG; Start 08/11/18 at 14:00; Stop 08/14/18 at 13:59 Ipratropium [place] (Atrovent 0.02% (Neb)) 0.5 mg Q6HWA RESP THERAPY HHN Last administered on 08/12/18at 02:34; Admin Dose 0.5 MG; Start 08/11/18 at 14:00; Stop 08/14/18 at 13:59 Montelukast Sodium (Singulair) 10 mg HS PO Last administered on 08/11/18at 20:20; Admin Dose 10 MG; Start 08/11/18 at 13:30 Furosemide (Lasix) 40 mg DAILY@0600 IV Last administered on 08/12/18at 12:16; Admin Dose 40 MG; Start 08/12/18 at 11:30 Ferric Sodium Gluconate Complex 125 mg/Sodium Chloride 100 ml @ 100 mls/hr DAILY@1300 IVPB ; Start 08/12/18 at 13:30; Stop 08/14/18 at 13:59 Vancomycin HCl 250 ml @ 125 mls/hr Q12H IVPB ; Start 08/12/18 at 23:00 Assessment/Plan Hospital Course (Demo Recall) Acute hypercapnic hypoxemic respiratory failure Likely obstructive sleep apnea Congestive heart failure acute on chronic secondary diastolic heart failure Atrial fibrillation Hypertension Diabetes Developmental delay Bronchiolitis/questionable pneumonia Recommendations: cont Cardizem and dig to control the heart rate better po lasix nightly CPAP and BIPAP prn Diabetic control to be continued Continue with Xarelto Replace electrolytes as needed Follow-up with the pulmonary recommendation Thank you for this referral. We will continue to follow along with you as needed EBENEZER GUTIERREZ MD [facility] EBENEZER GUTIERREZ MD August 12, 2018 15:25
[2018-08-12] MEDS: RIVAROXABAN 20 MG TABLET PO SCH (17:53)
[2018-08-12] MEDS: ATORVASTATIN 80 MG TAB PO SCH (20:40)
[2018-08-12] MEDS: MONTELUKAST 10 MG TAB PO SCH (20:40)
[2018-08-12] MEDS: VANCOMYCIN 1 GM 250 ML IVPB SCH (23:15)
[2018-08-13] VITALS (13 sets, daily range): BP systolic 108–137; BP diastolic 61–88; PULSE 63–113; RESP 16–18
[2018-08-13] MEDS: LEVALBUTEROL (NEB) 0.63 MG/3 ML AMP HHN SCH ×4 (01:58→20:24)
[2018-08-13] MEDS: ACCU-CHEK XX SCH (02:00)
[2018-08-13] MEDS: FUROSEMIDE 40 MG INJ IV SCH (05:17)
[2018-08-13] MEDS: PANTOPRAZOLE (EC) 40 MG TAB PO SCH (05:17)
[2018-08-13] MEDS: INSULIN ASPART [NOVOLOG] 3 ML PEN SC SCH ×7 (07:58→20:47)
[2018-08-13] MEDS: INSULIN GLARGINE [LANTus] (100 UNITS/ML) SYG SC SCH (08:24)
[2018-08-13] MEDS: CEFEPIME 1GM/50 ML (PMX) 50 ML IVPB SCH ×2 (08:55→20:44)
[2018-08-13] MEDS: DILTIAZEM 30 MG TAB PO SCH ×4 (08:56→20:16)
[2018-08-13] MEDS: METOPROLOL 100 MG TAB PO SCH ×2 (08:56→20:15)
[2018-08-13] MEDS: IPRATROPIUM (NEB) 0.5 MG/2.5 ML AMP HHN SCH ×3 (09:39→20:24)
--- NOTE | 2018-08-13 10:33 | PN ---
Date/Time of Note Date/Time of Note DATE: 08/13/18 TIME: 10:33 Assessment/Plan VTE Prophylaxis Risk score (from Ns)>0 risk: 8 SCD applied (from Ns): No SCD contraindicated: low risk/ambulating Pharmacological prophylaxis: apixaban Lines/Catheters IV [facility] [place] Urinary Cath still in place: No Assessment/Plan Assessment/Plan 1. Acute hypercapnic respiratory failure- improving - Patient has been improving and tolerating 3L O2. CPAP qhs and BIPAP PRN - Pulmonology consultation appreciated. noted with pulmonary edema on imaging studies. continue diuresing, nebs and antibiotics 2. Acute on chronic diastolic HF - continue diuresing and monitor I/O and daily weights - Cardiology input appreciated 3. Atrial fibrillation - rate controlled - continue Eliquis 4. Hypertension - stable - continue current medications 5. Diabetes - A1c noted - increasing Lantus and Novolog for better sugar control 6. Chronic debility, ambulates with walker - PT/OT 7. Morbid obesity - lifestyle modifications encouraged 8. Lower extremity cellulitis- improving - continue current treatment 9. B/l PNA - continue current treatment with antibiotics and nebs 10. h/o developmental delay 11. Disposition - Continuing weaning down O2. Unable to provide patient with home O2 or services given insurance so will need to await optimization of overall condition prior to discharge Result Diagram: 08/11/18 0530 08/12/18 0509 Results 24hrs Laboratory Tests Test 08/12/18 11:10 08/12/18 11:44 08/12/18 12:12 08/12/18 17:14 Blood Gas Specimen Blood arterial Source Arterial Blood 08/12/2018 11:50:20 Date Drawn AM Arterial Blood pH 7.340 L (Temp corrected) Arterial Blood 66.2 H pCO2 (Temp correct) Arterial Blood pO2 80.5 (Temp corrected) Arterial Blood 34.9 H HCO3 Arterial Blood 7.3 H Base Excess Arterial Blood 94.4 L Oxygen Saturation Harsha Test ACCEPTAB Arterial Blood Gas Right Radial Puncture Site Arterial 0.1 Blood Carboxyhemog lobin Arterial Blood 0.6 Methemoglobin Blood Gas A-a O2 33.7 H Differential Oxyhemoglobin 93.7 Percent Blood Gas 37.0 Temperature Blood Gas Modality NASAL CANNULA FiO2 27.0 Blood Gas Notified TM Whom Blood Gas Notified 08/12/2018 12:04:06 Time PM Bedside Glucose 290 H 264 H Vancomycin Level 5.6 L Trough Test 08/12/18 20:39 08/13/18 02:13 08/13/18 07:53 Bedside Glucose 292 H 226 H 219 Subjective 24 Hr Interval Summary Free Text/Dictation Patient states shes feeling okay but still with occasional shortness of breath. Complaining of discomfort of feet bilaterally with palpation. Exam/Review of Systems Exam Vitals Vital Signs Date Temp Pulse Resp B/P (MAP) Pulse Ox O2 O2 Flow FiO2 Time Delivery Rate 08/13/18 99 3.0 09:44 08/13/18 82 20 Nasal 09:42 Cannula 08/13/18 98.0 126/61 07:45 (82) 08/13/18 50 01:18 Intake and Output 08/12/18 08/12/18 08/13/18 1515:00 23:00 07:00 IntakeIntake Total 650 ml 750 ml BalanceBalance 650 ml 750 ml Exam General: Patient in no acute distress. answering question appropriately Neck: Supple Chest: Nontender Lungs: Diminished bilaterally without crackles or wheezing Heart: Normal S1-S2, irregular rhythm and rate. Systolic murmur appreciated Abdomen: Soft , nontender, nondistended , bowel sounds are present. No guarding no rebound tenderness Extremities: mild edema LE bilaterally. feet tender to palpation bilaterally. Skin: no rashes or lesions appreciated Results Results 24hrs Laboratory Tests Test 08/12/18 11:10 08/12/18 11:44 08/12/18 12:12 08/12/18 17:14 Blood Gas Specimen Blood arterial Source Arterial Blood 08/12/2018 11:50:20 Date Drawn AM Arterial Blood pH 7.340 L (Temp corrected) Arterial Blood 66.2 H pCO2 (Temp correct) Arterial Blood pO2 80.5 (Temp corrected) Arterial Blood 34.9 H HCO3 Arterial Blood 7.3 H Base Excess Arterial Blood 94.4 L Oxygen Saturation Harsha Test ACCEPTAB Arterial Blood Gas Right Radial Puncture Site Arterial 0.1 Blood Carboxyhemog lobin Arterial Blood 0.6 Methemoglobin Blood Gas A-a O2 33.7 H Differential Oxyhemoglobin 93.7 Percent Blood Gas 37.0 Temperature Blood Gas Modality NASAL CANNULA FiO2 27.0 Blood Gas Notified TM Whom Blood Gas Notified 08/12/2018 12:04:06 Time PM Bedside Glucose 290 H 264 H Vancomycin Level 5.6 L Trough Test 08/12/18 20:39 08/13/18 02:13 08/13/18 07:53 Bedside Glucose 292 H 226 H 219 Medications Medication Current Medications IV Flush (NS 3 ml) 3 ml PER PROTOCOL IV ; Start 08/08/18 at 00:00 Nitroglycerin (Nitroglycerin (Sl Tab) 0.4 Mg) 1 tab Q5M PRN SL .CHEST PAIN; Start 08/08/18 at 00:00 Acetaminophen (Tylenol Tab) 650 mg Q6H PRN PO .PAIN 1-3 OR TEMP Last administered on 08/10/18at 17:33; Admin Dose 650 MG; Start 08/08/18 at 00:00 Ipratropium [place] (Atrovent 0.02% (Neb)) 0.5 mg Q2H RESP THERAPY PRN NEB SHORTNESS OF BREATH Last administered on 08/12/18at 09:52; Admin Dose 0.5 MG; Start 08/08/18 at 00:00 Diagnostic Test (Pha) (Accu-Chek) 1 ea 02 XX Last administered on 08/10/18at 01:27; Admin Dose 1 EA; Start 08/09/18 at 02:00 Insulin Aspart (Novolog Insulin Pen) NOVOLOG *MILD* ALGORITHM WITH MEALS BEDTIME SC Last administered on 08/13/18at 07:58; Admin Dose 2 UNIT; Start 08/08/18 at 12:00 Miscellaneous Information 1 ea NOTE XX ; Start 08/08/18 at 11:30 Glucose (Glutose) 15 gm Q15M PRN PO DECREASED GLUCOSE; Start 08/08/18 at 11:30 Glucose (Glutose) 22.5 gm Q15M PRN PO DECREASED GLUCOSE; Start 08/08/18 at 11:30 Dextrose (D50w Syringe) 25 ml Q15M PRN IV DECREASED GLUCOSE; Start 08/08/18 at 11:30 Dextrose (D50w Syringe) 50 ml Q15M PRN IV DECREASED GLUCOSE; Start 08/08/18 at 11:30 Glucagon (Glucagen) 1 mg Q15M PRN IM DECREASED GLUCOSE; Start 08/08/18 at 11:30 Glucose (Glutose) 15 gm Q15M PRN BUCCAL DECREASED GLUCOSE; Start 08/08/18 at 11:30 Atorvastatin Calcium (Lipitor) 80 mg QHS PO Last administered on 08/12/18 20: 40; Admin Dose 80 MG; Start 08/08/18 at 21:00 Metoprolol Tartrate (Lopressor) 100 mg BID PO Last administered on 08/13/18 08:56; Admin Dose 100 MG; Start 08/08/18 at 14:00 Rivaroxaban (Xarelto) 20 mg WITH DINNER PO Last administered on 08/12/18 17:53; Admin Dose 20 MG; Start 08/08/18 at 18:00 Pantoprazole (Protonix Tab) 40 mg DAILY@06 PO Last administered on 08/13/18 05:17; Admin Dose 40 MG; Start 08/09/18 at 06:00 Diltiazem HCl (Cardizem) 30 mg QID PO Last administered on 08/13/18 08:56; A dmin Dose 30 MG; Start 08/08/18 at 18:30 Vancomycin HCl (Vanco Iv Per Pharmacy) VANCOMYCIN PER PHARMACY PER PROTOCOL XX ; Start 08/09/18 at 12:00 Cefepime HCl 50 ml @ 100 mls/hr Q12 IVPB Last administered on 08/13/18 08:55; Admin Dose 100 MLS/HR; Start 08/10/18 at 21:00 Insulin Glargine (Lantus) 19 units DAILY@0800 SC Last administered on 08/13/18 08:24; Admin Dose 19 UNITS; Start 08/11/18 at 08:00 Insulin Aspart (Novolog Insulin Pen) 6 unit WITH MEALS SC Last administered on 08/13/18 07:59; Admin Dose 6 UNIT; Start 08/10/18 at 13:30 Digoxin (Digoxin) 0.125 mg DAILY@13 PO Last administered on 08/12/18 12:15; Admin Dose 0.125 MG; Start 08/11/18 at 13:00 Levalbuterol (Xopenex Neb) 0.63 mg Q6H RESP THERAPY HHN Last administered on 08/13/18 09:39; Admin Dose 0.63 MG; Start 08/11/18 at 14:00; Stop 08/14/18 at 13:59 Ipratropium [place] (Atrovent 0.02% (Neb)) 0.5 mg Q6HWA RESP THERAPY HHN Last administered on 08/13/18at 09:39; Admin Dose 0.5 MG; Start 08/11/18 at 14:00; Stop 08/14/18 at 13:59 Montelukast Sodium (Singulair) 10 mg HS PO Last administered on 08/12/18at 20:40; Admin Dose 10 MG; Start 08/11/18 at 13:30 Furosemide (Lasix) 40 mg DAILY@0600 IV Last administered on 08/13/18at 05:17; Admin Dose 40 MG; Start 08/12/18 at 11:30 Ferric Sodium Gluconate Complex 125 mg/Sodium Chloride 100 ml @ 100 mls/hr DAILY@1300 IVPB Last administered on 08/12/18at 15:22; Admin Dose 100 MLS/HR; Start 08/12/18 at 13:30; Stop 08/14/18 at 13:59 Vancomycin HCl 250 ml @ 125 mls/hr Q12H IVPB Last administered on 08/12/18at 23:15; Admin Dose 125 MLS/HR; Start 08/12/18 at 23:00 ERIK RESENDIZ MD August 13, 2018 10:33
[2018-08-13] MEDS: VANCOMYCIN 1 GM 250 ML IVPB SCH ×2 (11:29→23:14)
[2018-08-13] MEDS: SOD FERRIC GLUC COMPLX 125 MG in SOD CHLORIDE 0.9% 100 ML IVPB SCH (13:21)
[2018-08-13] MEDS: DIGOXIN 0.125 MG TAB PO SCH (13:24)
[2018-08-13] MEDS: RIVAROXABAN 20 MG TABLET PO SCH (17:29)
--- NOTE | 2018-08-13 17:31 | CONS ---
Consult Date/Type/Reason Admit Date/Time Aug 07, 2018 at 22:47 Initial Consult Date 08/12/18 Type of Consultation: Pulm Requesting Provider: MAC FRYE Date/Time of Note DATE: 08/13/18 TIME: 17:29 Subjective No events. Phil PAP. Objective Vitals Vital Signs Date Temp Pulse Resp B/P (MAP) Pulse Ox O2 O2 Flow FiO2 Time Delivery Rate 08/13/18 78 16:01 08/13/18 98.3 18 122/63 98 Nasal 15:37 (82) Cannula 08/13/18 3.0 14:54 08/13/18 50 01:18 Intake and Output 08/12/18 08/12/18 08/13/18 1515:00 23:00 07:00 IntakeIntake Total 650 ml 750 ml BalanceBalance 650 ml 750 ml Exam HEENT: Neck supple; no JVD; no LAD CVS: RRR, S1 and S2 CHEST: Clear ABD: Obese, NT, + BS EXT: No c/c; + edema Results/Medications Result Diagram: 08/11/18 0530 08/12/18 0509 Results 24 hrs Laboratory Tests Test 08/12/18 20:39 08/13/18 02:13 08/13/18 07:53 08/13/18 11:45 Bedside Glucose 292 H 226 H 219 284 H Test 08/13/18 17:18 Bedside Glucose 308 H Home Meds Reported Medications Insulin Isophan/Regular (Humulin 70/30) 100 Units/Ml Susp, 40 UNIT SC AC BREAK FAST DINNER, EA 08/08/18 Metoprolol Tartrate* (Lopressor*) 100 Mg Tablet, 100 MG PO BID, #60 TAB 08/08/18 Hydralazine Hcl* (Hydralazine Hcl*) 25 Mg Tab, 25 MG PO BID, #60 TAB 08/08/18 Metformin Hcl* (Metformin Hcl*) 1,000 Mg Tablet, 1000 MG PO WITH BREAKFAST DINNE, #60 TAB 08/08/18 Atorvastatin* (Atorvastatin*) 80 Mg Tablet, 80 MG PO QHS, #30 TAB 08/08/18 Esomeprazole Mag Trihydrate (Nexium) 20 Mg Capsule.dr, 20 MG PO DAILY, #30 CAP 08/08/18 Furosemide* (Furosemide*) 20 Mg Tablet, 20 MG PO DAILY, #60 TAB 08/08/18 Amlodipine Besylate* (Norvasc*) 5 Mg Tablet, 5 MG PO DAILY, TAB 08/08/18 Losartan Potassium* (Losartan Potassium*) 100 Mg Tablet, 100 MG PO DAILY, TAB 08/08/18 Rivaroxaban* (Xarelto*) 20 Mg Tablet, 20 MG PO WITH DINNER, TAB 08/08/18 Medications Current Medications IV Flush (NS 3 ml) 3 ml PER PROTOCOL IV ; Start 08/08/18 at 00:00 Nitroglycerin (Nitroglycerin (Sl Tab) 0.4 Mg) 1 tab Q5M PRN SL .CHEST PAIN; Start 08/08/18 at 00:00 Acetaminophen (Tylenol Tab) 650 mg Q6H PRN PO .PAIN 1-3 OR TEMP Last administered on 08/10/18at 17:33; Admin Dose 650 MG; Start 08/08/18 at 00:00 Ipratropium [place] (Atrovent 0.02% (Neb)) 0.5 mg Q2H RESP THERAPY PRN NEB SHORTNESS OF BREATH Last administered on 08/12/18at 09:52; Admin Dose 0.5 MG; Start 08/08/18 at 00:00 Diagnostic Test (Pha) (Accu-Chek) 1 ea 02 XX Last administered on 08/10/18at 01:27; Admin Dose 1 EA; Start 08/09/18 at 02:00 Insulin Aspart (Novolog Insulin Pen) NOVOLOG *MILD* ALGORITHM WITH MEALS BEDTIME SC Last administered on 08/13/18at 11:48; Admin Dose 4 UNIT; Start 08/08/18 at 12:00 Miscellaneous Information 1 ea NOTE XX ; Start 08/08/18 at 11:30 Glucose (Glutose) 15 gm Q15M PRN PO DECREASED GLUCOSE; Start 08/08/18 at 11:30 Glucose (Glutose) 22.5 gm Q15M PRN PO DECREASED GLUCOSE; Start 08/08/18 at 11:30 Dextrose (D50w Syringe) 25 ml Q15M PRN IV DECREASED GLUCOSE; Start 08/08/18 at 11:30 Dextrose (D50w Syringe) 50 ml Q15M PRN IV DECREASED GLUCOSE; Start 08/08/18 at 11:30 Glucagon (Glucagen) 1 mg Q15M PRN IM DECREASED GLUCOSE; Start 08/08/18 at 11:30 Glucose (Glutose) 15 gm Q15M PRN BUCCAL DECREASED GLUCOSE; Start 08/08/18 at 11:30 Atorvastatin Calcium (Lipitor) 80 mg QHS PO Last administered on 08/12/18 20:40; Admin Dose 80 MG; Start 08/08/18 at 21:00 Metoprolol Tartrate (Lopressor) 100 mg BID PO Last administered on 08/13/18 08:56; Admin Dose 100 MG; Start 08/08/18 at 14:00 Rivaroxaban (Xarelto) 20 mg WITH DINNER PO Last administered on 08/12/18 17:53; Admin Dose 20 MG; Start 08/08/18 at 18:00 Pantoprazole (Protonix Tab) 40 mg DAILY@06 PO Last administered on 08/13/18 05:17; Admin Dose 40 MG; Start 08/09/18 at 06:00 Diltiazem HCl (Cardizem) 30 mg QID PO Last administered on 08/13/18 13:24; Admin Dose 30 MG; Start 08/08/18 at 18:30 Vancomycin HCl (Vanco Iv Per Pharmacy) VANCOMYCIN PER PHARMACY PER PROTOCOL XX ; Start 08/09/18 at 12:00 Cefepime HCl 50 ml @ 100 mls/hr Q12 IVPB Last administered on 08/13/18 08:55; Admin Dose 100 MLS/HR; Start 08/10/18 at 21:00 Digoxin (Digoxin) 0.125 mg DAILY@13 PO Last administered on 08/13/18 13:24; Admin Dose 0.125 MG; Start 08/11/18 at 13:00 Levalbuterol (Xopenex Neb) 0.63 mg Q6H RESP THERAPY HHN Last administered on 08/13/18 14:50; Admin Dose 0.63 MG; Start 08/11/18 at 14:00; Stop 08/14/18 at 13:59 Ipratropium [place] (Atrovent 0.02% (Neb)) 0.5 mg Q6HWA RESP THERAPY HHN Last administered on 08/13/18 14:50; Admin Dose 0.5 MG; Start 08/11/18 at 14:00; Stop 08/14/18 at 13:59 Montelukast Sodium (Singulair) 10 mg HS PO Last administered on 08/12/18at 20:40; Admin Dose 10 MG; Start 08/11/18 at 13:30 Furosemide (Lasix) 40 mg DAILY@0600 IV Last administered on 08/13/18at 05:17; Admin Dose 40 MG; Start 08/12/18 at 11:30 Ferric Sodium Gluconate Complex 125 mg/Sodium Chloride 100 ml @ 100 mls/hr DAILY@1300 IVPB Last administered on 08/13/18at 13:21; Admin Dose 100 MLS/HR; Start 08/12/18 at 13:30; Stop 08/14/18 at 13:59 Vancomycin HCl 250 ml @ 125 mls/hr Q12H IVPB Last administered on 08/13/18at 11:29; Admin Dose 125 MLS/HR; Start 08/12/18 at 23:00 Insulin Aspart (Novolog Insulin Pen) 9 unit WITH MEALS SC ; Start 08/13/18 at 18:00 Insulin Glargine (Lantus) 25 units DAILY@0800 SC ; Start 08/14/18 at 08:00 Miscellaneous Information (*Rx Drug Level Order Reminder*) VANCO TROUGH 08/14 @ 1,000 1000 ONCE XX ; Start 08/14/18 at 10:00; Stop 08/14/18 at 10:01 Assessment/Plan Assessment/Plan (Daily) IMP: 1. Acute on chronic hypercapnic resp failure 2/2 ADHF (RHF) 2. OHS/GHADA RECS: 1. Continue nocturnal BiPAP 2. Diuresis 3. Strict I/O's; daily weights CAROL RICHARDSON MD August 13, 2018 17:31
[2018-08-13] MEDS: ACETAMINOPHEN 325 MG TAB PO PRN (20:10)
[2018-08-13] MEDS: ATORVASTATIN 80 MG TAB PO SCH (20:12)
[2018-08-13] MEDS: MONTELUKAST 10 MG TAB PO SCH (20:12)
[2018-08-14] VITALS (12 sets, daily range): BP systolic 121–138; BP diastolic 59–69; PULSE 67–97; RESP 18–22
[2018-08-14] MEDS ORDERED: DIPHENHYDRAMINE 25 MG CAP PO PRN (00:30)
[2018-08-14] MEDS: LEVALBUTEROL (NEB) 0.63 MG/3 ML AMP HHN SCH ×2 (01:45→09:06)
[2018-08-14] MEDS: ACCU-CHEK XX SCH (02:30)
[2018-08-14] MEDS: PANTOPRAZOLE (EC) 40 MG TAB PO SCH (06:29)
[2018-08-14] MEDS: FUROSEMIDE 40 MG INJ IV SCH (06:29)
[2018-08-14] MEDS: INSULIN ASPART [NOVOLOG] 3 ML PEN SC SCH ×7 (07:58→20:28)
[2018-08-14] MEDS ORDERED: INSULIN GLARGINE [LANTus] (100 UNITS/ML) SYG SC SCH (08:00)
[2018-08-14] MEDS: CEFEPIME 1GM/50 ML (PMX) 50 ML IVPB SCH ×2 (08:51→20:19)
[2018-08-14] MEDS: DILTIAZEM 30 MG TAB PO SCH ×4 (08:51→20:15)
[2018-08-14] MEDS: METOPROLOL 100 MG TAB PO SCH ×2 (08:51→20:15)
[2018-08-14] MEDS: IPRATROPIUM (NEB) 0.5 MG/2.5 ML AMP HHN SCH (09:06)
--- NOTE | 2018-08-14 10:08 | PN ---
Date/Time of Note Date/Time of Note DATE: 08/14/18 TIME: 10:00 Assessment/Plan VTE Prophylaxis Risk score (from Nsg)>0 risk: 8 SCD applied (from Nsg): No SCD contraindicated: patient refusal (pain) Pharmacological prophylaxis: apixaban Lines/Catheters IV Catheter Type (from Nrs): Peripheral IV Urinary Cath still in place: No Assessment/Plan Assessment/Plan 1. Acute hypercapnic respiratory failure- stable - still requiring supplemental O2 and will need to be tapered off prior to discharge since unable to provide home O2 or other resources given insurance - Continue CPAP qhs and BIPAP PRN - Pulmonology consultation appreciated. noted with pulmonary edema on imaging studies. continue diuresing, nebs and antibiotics 2. Acute on chronic diastolic HF - continue diuresing and monitor I/O and daily weights - Cardiology input appreciated 3. Atrial fibrillation - rate controlled - continue Eliquis 4. Hypertension - stable - continue current medications 5. Diabetes - A1c noted - increasing Lantus and Novolog give sugars still poorly controlled. Will restart Metformin given no further imaging studies needed 6. Chronic debility, ambulates with walker - PT/OT 7. Morbid obesity - lifestyle modifications encouraged 8. Lower extremity cellulitis- improving - continue current treatment 9. B/l PNA - continue current treatment with antibiotics and nebs 10. h/o developmental delay 11. Disposition - Continuing weaning down O2. Unable to provide patient with home O2 or services given insurance so will need to await optimization of overall condition prior to discharge - Adjustments made to Lantus and Novolog given glucose control still not optimal Result Diagram: 08/14/18 0500 08/14/18 0500 Results 24hrs Laboratory Tests Test 08/13/18 11:45 08/13/18 17:18 08/13/18 20:39 08/14/18 02:19 Bedside Glucose 284 H 308 H 300 H 278 H Test 08/14/18 05:00 08/14/18 07:55 White Blood Count 9.5 Red Blood Count 4.65 Hemoglobin 10.8 L Hematocrit 35.8 L Mean Corpuscular Volume 77.0 L Mean Corpuscular 23.2 L Hemoglobin Mean Corpuscular 30.2 L Hemoglobin Concent Red Cell Distribution 18.9 H Width Platelet Count 262 Mean Platelet Volume 10.5 H Immature Granulocytes % 0.300 Neutrophils % 69.6 Lymphocytes % 14.8 L Monocytes % 10.3 Eosinophils % 4.8 Basophils % 0.2 Nucleated Red Blood 0.0 Cells % Immature Granulocytes # 0.030 Neutrophils # 6.6 Lymphocytes # 1.4 Monocytes # 1.0 H Eosinophils # 0.5 Basophils # 0.0 Nucleated Red Blood 0.0 Cells # Sodium Level 139 Potassium Level 4.6 Chloride Level 99 Carbon Dioxide Level 33 H Anion Gap 7 Blood Urea Nitrogen 24 H Creatinine 0.55 Glucose Level 257 H Calcium Level 9.4 Phosphorus Level 3.9 Magnesium Level 2.1 Albumin 3.4 Bedside Glucose 282 H Subjective 24 Hr Interval Summary Free Text/Dictation Patient denies any new issues. Still requiring supplemental O2. Tolerating CPAP qhs. Exam/Review of Systems Exam Vitals Vital Signs Date Temp Pulse Resp B/P (MAP) Pulse Ox O2 O2 Flow FiO2 Time Delivery Rate 08/14/18 98 3.0 09:12 08/14/18 84 20 Nasal 09:11 Cannula 08/14/18 98.2 138/59 07:42 (85) 08/13/18 50 01:18 Intake and Output 08/13/18 08/13/18 08/14/18 1515:00 23:00 07:00 IntakeIntake Total 400 ml 860 ml 650 ml BalanceBalance 400 ml 860 ml 650 ml Exam General: Patient in no acute distress. answering question appropriately Chest: Nontender Lungs: Diminished bilaterally without crackles or wheezing Heart: Normal S1-S2, irregular rhythm and rate. Systolic murmur appreciated Abdomen: Soft , nontender, nondistended , bowel sounds are present. No guarding no rebound tenderness Extremities: mild edema LE bilaterally. feet tender to palpation bilaterally. Skin: no rashes or lesions appreciated Results Results 24hrs Laboratory Tests Test 08/13/18 11:45 08/13/18 17:18 08/13/18 20:39 08/14/18 02:19 Bedside Glucose 284 H 308 H 300 H 278 H Test 08/14/18 05:00 08/14/18 07:55 White Blood Count 9.5 Red Blood Count 4.65 Hemoglobin 10.8 L Hematocrit 35.8 L Mean Corpuscular Volume 77.0 L Mean Corpuscular 23.2 L Hemoglobin Mean Corpuscular 30.2 L Hemoglobin Concent Red Cell Distribution 18.9 H Width Platelet Count 262 Mean Platelet Volume 10.5 H Immature Granulocytes % 0.300 Neutrophils % 69.6 Lymphocytes % 14.8 L Monocytes % 10.3 Eosinophils % 4.8 Basophils % 0.2 Nucleated Red Blood 0.0 Cells % Immature Granulocytes # 0.030 Neutrophils # 6.6 Lymphocytes # 1.4 Monocytes # 1.0 H Eosinophils # 0.5 Basophils # 0.0 Nucleated Red Blood 0.0 Cells # Sodium Level 139 Potassium Level 4.6 Chloride Level 99 Carbon Dioxide Level 33 H Anion Gap 7 Blood Urea Nitrogen 24 H Creatinine 0.55 Glucose Level 257 H Calcium Level 9.4 Phosphorus Level 3.9 Magnesium Level 2.1 Albumin 3.4 Bedside Glucose 282 H Medications Medication Current Medications IV Flush (NS 3 ml) 3 ml PER PROTOCOL IV ; Start 08/08/18 at 00:00 Nitroglycerin (Nitroglycerin (Sl Tab) 0.4 Mg) 1 tab Q5M PRN SL .CHEST PAIN; Start 08/08/18 at 00:00 Acetaminophen (Tylenol Tab) 650 mg Q6H PRN PO .PAIN 1-3 OR TEMP Last adminis tered on 08/13/18at 20:10; Admin Dose 650 MG; Start 08/08/18 at 00:00 Ipratropium [place] (Atrovent 0.02% (Neb)) 0.5 mg Q2H RESP THERAPY PRN NEB SHORTNESS OF BREATH Last administered on 08/12/18at 09:52; Admin Dose 0.5 MG; Start 08/08/18 at 00:00 Diagnostic Test (Pha) (Accu-Chek) 1 ea 02 XX Last administered on 08/14/18at 02:30; Admin Dose 1 EA; Start 08/09/18 at 02:00 Insulin Aspart (Novolog Insulin Pen) NOVOLOG *MILD* ALGORITHM WITH MEALS BEDTIME SC Last administered on 08/14/18at 07:58; Admin Dose 4 UNIT; Start 08/08/18 at 12:00 Miscellaneous Information 1 ea NOTE XX ; Start 08/08/18 at 11:30 Glucose (Glutose) 15 gm Q15M PRN PO DECREASED GLUCOSE; Start 08/08/18 at 11:30 Glucose (Glutose) 22.5 gm Q15M PRN PO DECREASED GLUCOSE; Start 08/08/18 at 11:30 Dextrose (D50w Syringe) 25 ml Q15M PRN IV DECREASED GLUCOSE; Start 08/08/18 at 11:30 Dextrose (D50w Syringe) 50 ml Q15M PRN IV DECREASED GLUCOSE; Start 08/08/18 at 11:30 Glucagon (Glucagen) 1 mg Q15M PRN IM DECREASED GLUCOSE; Start 08/08/18 at 11:30 Glucose (Glutose) 15 gm Q15M PRN BUCCAL DECREASED GLUCOSE; Start 08/08/18 at 11:30 Atorvastatin Calcium (Lipitor) 80 mg QHS PO Last administered on 08/13/18 20:12; Admin Dose 80 MG; Start 08/08/18 at 21:00 Metoprolol Tartrate (Lopressor) 100 mg BID PO Last administered on 08/14/18 0 8:51; Admin Dose 100 MG; Start 08/08/18 at 14:00 Rivaroxaban (Xarelto) 20 mg WITH DINNER PO Last administered on 08/13/18 17:29; Admin Dose 20 MG; Start 08/08/18 at 18:00 Pantoprazole (Protonix Tab) 40 mg DAILY@06 PO Last administered on 08/14/18 06:29; Admin Dose 40 MG; Start 08/09/18 at 06:00 Diltiazem HCl (Cardizem) 30 mg QID PO Last administered on 08/14/18 08:51; Admin Dose 30 MG; Start 08/08/18 at 18:30 Vancomycin HCl (Vanco Iv Per Pharmacy) VANCOMYCIN PER PHARMACY PER PROTOCOL XX ; Start 08/09/18 at 12:00 Cefepime HCl 50 ml @ 100 mls/hr Q12 IVPB Last administered on 08/14/18 08:51; Admin Dose 100 MLS/HR; Start 08/10/18 at 21:00 Digoxin (Digoxin) 0.125 mg DAILY@13 PO Last administered on 08/13/18 13:24; Admin Dose 0.125 MG; Start 08/11/18 at 13:00 Levalbuterol (Xopenex Neb) 0.63 mg Q6H RESP THERAPY HHN Last administered on 08/14/18 09:06; Admin Dose 0.63 MG; Start 08/11/18 at 14:00; Stop 08/14/18 at 13:59 Ipratropium [place] (Atrovent 0.02% (Neb)) 0.5 mg Q6HWA RESP THERAPY HHN Last administered on 08/14/18 09:06; Admin Dose 0.5 MG; Start 08/11/18 at 14:00; Stop 08/14/18 at 13:59 Montelukast Sodium (Singulair) 10 mg HS PO Last administered on 08/13/18 20:12; Admin Dose 10 MG; Start 08/11/18 at 13:30 Furosemide (Lasix) 40 mg DAILY@0600 IV Last administered on 08/14/18 06:29; Admin Dose 40 MG; Start 08/12/18 at 11:30 Ferric Sodium Gluconate Complex 125 mg/Sodium Chloride 100 ml @ 100 mls/hr DAILY@1300 IVPB Last administered on 08/13/18 13:21; Admin Dose 100 MLS/HR; Start 08/12/18 at 13:30; Stop 08/14/18 at 13:59 Vancomycin HCl 250 ml @ 125 mls/hr Q12H IVPB Last administered on 08/13/18 23:14; Admin Dose 125 MLS/HR; Start 08/12/18 at 23:00 Insulin Aspart (Novolog Insulin Pen) 9 unit WITH MEALS SC Last administered on 08/14/18 07:58; Admin Dose 9 UNIT; Start 08/13/18 at 18:00 Insulin Glargine (Lantus) 25 units DAILY@0800 SC Last administered on 08/14/18 07:57; Admin Dose 25 UNITS; Start 08/14/18 at 08:00 Miscellaneous Information (*Rx Drug Level Order Reminder*) VANCO TROUGH 08/14 @ 1,000 1000 ONCE XX ; Start 08/14/18 at 10:00; Stop 08/14/18 at 10:01 Diphenhydramine HCl (Benadryl) 25 mg Q6H PRN PO ITCHING Last administered on 08/14/18 01:43; Admin Dose 25 MG; Start 08/14/18 at 00:30; Stop 08/15/18 at 00:30 ERIK RESENDIZ MD August 14, 2018 10:08
[2018-08-14] MEDS: DIGOXIN 0.125 MG TAB PO SCH (12:22)
[2018-08-14] MEDS: VANCOMYCIN 1 GM 250 ML IVPB SCH ×2 (12:22→22:41)
[2018-08-14] MEDS: SOD FERRIC GLUC COMPLX 125 MG in SOD CHLORIDE 0.9% 100 ML IVPB SCH (12:23)
--- NOTE | 2018-08-14 13:11 | CONS ---
Consult Date/Type/Reason Admit Date/Time Aug 07, 2018 at 22:47 Initial Consult Date 08/12/18 Type of Consultation: Pulm Requesting Provider: MAC FRYE Date/Time of Note DATE: 08/14/18 TIME: 13:09 Subjective No events overnight. Tolerated PAP overnight. Objective Vitals Vital Signs Date Temp Pulse Resp B/P (MAP) Pulse Ox O2 O2 Flow FiO2 Time Delivery Rate 08/14/18 97 12:01 08/14/18 98.0 18 129/67 98 11:51 (87) 08/14/18 3.0 09:12 08/14/18 Nasal 09:11 Cannula 08/13/18 50 01:18 Intake and Output 08/13/18 08/13/18 08/14/18 1515:00 23:00 07:00 IntakeIntake Total 400 ml 860 ml 650 ml BalanceBalance 400 ml 860 ml 650 ml Exam HEENT: Neck supple; no JVD; no LAD CVS: RRR, S1 and S2 CHEST: Clear ABD: Obese, NT, + BS EXT: No c/c; + edema Results/Medications Result Diagram: 08/14/18 0500 08/14/18 0500 Results 24 hrs Laboratory Tests Test 08/13/18 17:18 08/13/18 20:39 08/14/18 02:19 08/14/18 05:00 Bedside Glucose 308 H 300 H 278 H White Blood Count 9.5 Red Blood Count 4.65 Hemoglobin 10.8 L Hematocrit 35.8 L Mean Corpuscular Volume 77.0 L Mean Corpuscular 23.2 L Hemoglobin Mean Corpuscular 30.2 L Hemoglobin Concent Red Cell Distribution 18.9 H Width Platelet Count 262 Mean Platelet Volume 10.5 H Immature Granulocytes % 0.300 Neutrophils % 69.6 Lymphocytes % 14.8 L Monocytes % 10.3 Eosinophils % 4.8 Basophils % 0.2 Nucleated Red Blood 0.0 Cells % Immature Granulocytes # 0.030 Neutrophils # 6.6 Lymphocytes # 1.4 Monocytes # 1.0 H Eosinophils # 0.5 Basophils # 0.0 Nucleated Red Blood 0.0 Cells # Sodium Level 139 Potassium Level 4.6 Chloride Level 99 Carbon Dioxide Level 33 H Anion Gap 7 Blood Urea Nitrogen 24 H Creatinine 0.55 Glucose Level 257 H Calcium Level 9.4 Phosphorus Level 3.9 Magnesium Level 2.1 Albumin 3.4 Test 08/14/18 07:55 08/14/18 10:32 Bedside Glucose 282 H Vancomycin Level Trough 13.1 Home Meds Reported Medications Insulin Isophan/Regular (Humulin 70/30) 100 Units/Ml Susp, 40 UNIT SC AC BREAKFAST DINNER, EA 08/08/18 Metoprolol Tartrate* (Lopressor*) 100 Mg Tablet, 100 MG PO BID, #60 TAB 08/08/18 Hydralazine Hcl* (Hydralazine Hcl*) 25 Mg Tab, 25 MG PO BID, #60 TAB 08/08/18 Metformin Hcl* (Metformin Hcl*) 1,000 Mg Tablet, 1000 MG PO WITH BREAKFAST DINNE, #60 TAB 08/08/18 Atorvastatin* (Atorvastatin*) 80 Mg Tablet, 80 MG PO QHS, #30 TAB 08/08/18 Esomeprazole Mag Trihydrate (Nexium) 20 Mg Capsule.dr, 20 MG PO DAILY, #30 CAP 08/08/18 Furosemide* (Furosemide*) 20 Mg Tablet, 20 MG PO DAILY, #60 TAB 08/08/18 Amlodipine Besylate* (Norvasc*) 5 Mg Tablet, 5 MG PO DAILY, TAB 08/08/18 Losartan Potassium* (Losartan Potassium*) 100 Mg Tablet, 100 MG PO DAILY, TAB 08/08/18 Rivaroxaban* (Xarelto*) 20 Mg Tablet, 20 MG PO WITH DINNER, TAB 08/08/18 Medications Current Medications IV Flush (NS 3 ml) 3 ml PER PROTOCOL IV ; Start 08/08/18 at 00:00 Nitroglycerin (Nitroglycerin (Sl Tab) 0.4 Mg) 1 tab Q5M PRN SL .CHEST PAIN; Start 08/08/18 at 00:00 Acetaminophen (Tylenol Tab) 650 mg Q6H PRN PO .PAIN 1-3 OR TEMP Last ad ministered on 08/13/18at 20:10; Admin Dose 650 MG; Start 08/08/18 at 00:00 Ipratropium [place] (Atrovent 0.02% (Neb)) 0.5 mg Q2H RESP THERAPY PRN NEB SHORTNESS OF BREATH Last administered on 08/12/18at 09:52; Admin Dose 0.5 MG; Start 08/08/18 at 00:00 Diagnostic Test (Pha) (Accu-Chek) 1 ea 02 XX Last administered on 08/14/18at 02:30; Admin Dose 1 EA; Start 08/09/18 at 02:00 Insulin Aspart (Novolog Insulin Pen) NOVOLOG *MILD* ALGORITHM WITH MEALS BEDTIME SC Last administered on 08/14/18at 11:57; Admin Dose 5 UNIT; Start 08/08/18 at 12:00 Miscellaneous Information 1 ea NOTE XX ; Start 08/08/18 at 11:30 Glucose (Glutose) 15 gm Q15M PRN PO DECREASED GLUCOSE; Start 08/08/18 at 11:30 Glucose (Glutose) 22.5 gm Q15M PRN PO DECREASED GLUCOSE; Start 08/08/18 at 11:30 Dextrose (D50w Syringe) 25 ml Q15M PRN IV DECREASED GLUCOSE; Start 08/08/18 at 11:30 Dextrose (D50w Syringe) 50 ml Q15M PRN IV DECREASED GLUCOSE; Start 08/08/18 at 11:30 Glucagon (Glucagen) 1 mg Q15M PRN IM DECREASED GLUCOSE; Start 08/08/18 at 11:30 Glucose (Glutose) 15 gm Q15M PRN BUCCAL DECREASED GLUCOSE; Start 08/08/18 at 11:30 Atorvastatin Calcium (Lipitor) 80 mg QHS PO Last administered on 08/13/18at 20:12; Admin Dose 80 MG; Start 08/08/18 at 21:00 Metoprolol Tartrate (Lopressor) 100 mg BID PO Last administered on 08/14/18at 08:51; Admin Dose 100 MG; Start 08/08/18 at 14:00 Rivaroxaban (Xarelto) 20 mg WITH DINNER PO Last administered on 08/13/18at 17:29; Admin Dose 20 MG; Start 08/08/18 at 18:00 Pantoprazole (Protonix Tab) 40 mg DAILY@06 PO Last administered on 08/14/18 06:29; Admin Dose 40 MG; Start 08/09/18 at 06:00 Diltiazem HCl (Cardizem) 30 mg QID PO Last administered on 08/14/18 12:23; Admin Dose 30 MG; Start 08/08/18 at 18:30 Vancomycin HCl (Vanco Iv Per Pharmacy) VANCOMYCIN PER PHARMACY PER PROTOCOL XX ; Start 08/09/18 at 12:00 Cefepime HCl 50 ml @ 100 mls/hr Q12 IVPB Last administered on 08/14/18 08:51; Admin Dose 100 MLS/HR; Start 08/10/18 at 21:00 Digoxin (Digoxin) 0.125 mg DAILY@13 PO Last administered on 08/14/18 12:22; Admin Dose 0.125 MG; Start 08/11/18 at 13:00 Levalbuterol (Xopenex Neb) 0.63 mg Q6H RESP THERAPY HHN Last administered on 08/14/18 09:06; Admin Dose 0.63 MG; Start 08/11/18 at 14:00; Stop 08/14/18 at 13:59 Ipratropium [place] (Atrovent 0.02% (Neb)) 0.5 mg Q6HWA RESP THERAPY HHN Last administered on 08/14/18 09:06; Admin Dose 0.5 MG; Start 08/11/18 at 14:00; Stop 08/14/18 at 13:59 Montelukast Sodium (Singulair) 10 mg HS PO Last administered on 08/13/18 20:12; Admin Dose 10 MG; Start 08/11/18 at 13:30 Furosemide (Lasix) 40 mg DAILY@0600 IV Last administered on 08/14/18 06:29; Admin Dose 40 MG; Start 08/12/18 at 11:30 Ferric Sodium Gluconate Complex 125 mg/Sodium Chloride 100 ml @ 100 mls/hr DAILY@1300 IVPB Last administered on 08/14/18 12:23; Admin Dose 100 MLS/HR; Start 08/12/18 at 13:30; Stop 08/14/18 at 13:59 Vancomycin HCl 250 ml @ 125 mls/hr Q12H IVPB Last administered on 08/14/18 12:22; Admin Dose 125 MLS/HR; Start 08/12/18 at 23:00 Diphenhydramine HCl (Benadryl) 25 mg Q6H PRN PO ITCHING Last administered on 08/14/18 01:43; Admin Dose 25 MG; Start 08/14/18 at 00:30; Stop 08/15/18 at 00:30 Insulin Aspart (Novolog Insulin Pen) 11 unit WITH MEALS SC Last administered on 5/5/19at 11:58; Admin Dose 11 UNIT; Start 08/14/18 at 12:00 Insulin Glargine (Lantus) 15 units BID SC ; Start 08/14/18 at 21:00 Metformin HCl (Glucophage) 1,000 mg WITH BREAKFAST DINNE PO ; Start 08/14/18 at 18:00 Assessment/Plan Assessment/Plan (Daily) IMP: 1. Acute on chronic hypercapnic resp failure 2/2 ADHF (RHF) 2. OHS/GHADA RECS: 1. Continue nocturnal BiPAP 2. Diuresis 3. Strict I/O's; daily weights 4. Titrate O2 to keep SpO2 88-92% CAROL RICHARDSON MD August 14, 2018 13:11
[2018-08-14] MEDS: IPRATROPIUM (NEB) 0.5 MG/2.5 ML AMP NEB PRN (14:47)
[2018-08-14] MEDS: RIVAROXABAN 20 MG TABLET PO SCH (17:36)
[2018-08-14] MEDS: metFORMIN 500 MG TAB PO SCH (17:36)
[2018-08-14] MEDS: ACETAMINOPHEN 325 MG TAB PO PRN (18:22)
[2018-08-14] MEDS: ATORVASTATIN 80 MG TAB PO SCH (20:14)
[2018-08-14] MEDS: MONTELUKAST 10 MG TAB PO SCH (20:14)
[2018-08-14] MEDS: INSULIN GLARGINE [LANTus] (100 UNITS/ML) SYG SC SCH (20:29)
[2018-08-14] MEDS ORDERED: ACETAMINOPHEN 325 MG TAB PO ONE (22:52)
[2018-08-15] VITALS (12 sets, daily range): BP systolic 91–139; BP diastolic 46–78; PULSE 63–93; RESP 20–22
[2018-08-15] MEDS: ACCU-CHEK XX SCH (01:48)
[2018-08-15] MEDS: PANTOPRAZOLE (EC) 40 MG TAB PO SCH (05:28)
[2018-08-15] MEDS: FUROSEMIDE 40 MG INJ IV SCH (05:31)
[2018-08-15] MEDS: INSULIN ASPART [NOVOLOG] 3 ML PEN SC SCH ×7 (07:54→21:00)
[2018-08-15] MEDS: metFORMIN 500 MG TAB PO SCH ×2 (08:18→17:28)
[2018-08-15] MEDS: INSULIN GLARGINE [LANTus] (100 UNITS/ML) SYG SC SCH ×2 (08:20→21:08)
[2018-08-15] MEDS: CEFEPIME 1GM/50 ML (PMX) 50 ML IVPB SCH ×2 (09:11→20:59)
[2018-08-15] MEDS: DILTIAZEM 30 MG TAB PO SCH ×4 (09:13→21:02)
[2018-08-15] MEDS: METOPROLOL 100 MG TAB PO SCH ×2 (09:13→21:02)
[2018-08-15] MEDS: VANCOMYCIN 1 GM 250 ML IVPB SCH ×2 (10:35→22:18)
[2018-08-15] MEDS: DIGOXIN 0.125 MG TAB PO SCH (12:11)
--- NOTE | 2018-08-15 13:13 | CONS ---
Consult Date/Type/Reason Admit Date/Time Aug 07, 2018 at 22:47 Initial Consult Date 08/12/18 Type of Consult Pulmonary Requesting Provider: MAC FRYE Date/Time of Note DATE: 08/15/18 TIME: 13:12 Subjective Patient appears comfortable this morning no respiratory distress sitting up in bed Objective Vital Signs Date Temp Pulse Resp B/P (MAP) Pulse Ox O2 O2 Flow FiO2 Time Delivery Rate 08/15/18 98.0 82 20 119/58 96 11:31 (78) 08/15/18 3.0 05:51 08/14/18 Nasal 20:25 Cannula 08/13/18 50 01:18 Intake and Output 08/14/18 08/14/18 08/15/18 1515:00 23:00 07:00 IntakeIntake Total 300 ml 850 ml 750 ml BalanceBalance 300 ml 850 ml 750 ml Exam GENERAL: VITAL SIGNS: per chart NECK: Supple. No JVD or lymphadenopathy. CARDIAC EXAM: S1, S2. No added sounds or murmurs. CHEST: Diminished air entry at bases ABDOMEN: Soft, nontender. No guarding or rebound. EXTREMITIES: No cyanosis, clubbing or edema. NEUROLOGIC: Generalized weakness. No focal deficits. Morbidly obese lady comfortable at rest Vent Setting Fraction of Inspired Oxygen pe: 31 Results/Medications Result Diagram: 08/15/18 0449 08/15/18 0449 Results 24 hrs Laboratory Tests Test 08/14/18 17:33 08/14/18 20:23 08/15/18 01:44 08/15/18 04:49 Bedside Glucose 332 H 332 H 220 White Blood Count 9.7 Red Blood Count 4.66 Hemoglobin 10.9 L Hematocrit 35.9 L Mean Corpuscular Volume 77.0 L Mean Corpuscular 23.4 L Hemoglobin Mean Corpuscular 30.4 L Hemoglobin Concent Red Cell Distribution 19.4 H Width Platelet Count 315 # Mean Platelet Volume 10.2 Immature Granulocytes % 0.300 Neutrophils % 70.2 Lymphocytes % 13.7 L Monocytes % 10.9 Eosinophils % 4.6 Basophils % 0.3 Nucleated Red Blood 0.0 Cells % Immature Granulocytes # 0.030 Neutrophils # 6.8 Lymphocytes # 1.3 Monocytes # 1.1 H Eosinophils # 0.4 Basophils # 0.0 Nucleated Red Blood 0.0 Cells # Sodium Level 141 Potassium Level 4.2 Chloride Level 100 Carbon Dioxide Level 37 H Anion Gap 4 L Blood Urea Nitrogen 23 H Creatinine 0.57 Glucose Level 232 H Calcium Level 9.6 Phosphorus Level 3.8 Magnesium Level 1.9 Albumin 3.5 Test 08/15/18 07:47 08/15/18 11:40 Bedside Glucose 242 H 315 H Medications Current Medications IV Flush (NS 3 ml) 3 ml PER PROTOCOL IV ; Start 08/08/18 at 00:00 Nitroglycerin (Nitroglycerin (Sl Tab) 0.4 Mg) 1 tab Q5M PRN SL .CHEST PAIN; Start 08/08/18 at 00:00 Acetaminophen (Tylenol Tab) 650 mg Q6H PRN PO .PAIN 1-3 OR TEMP Last administered on 08/14/18at 18:22; Admin Dose 650 MG; Start 08/08/18 at 00:00 Ipratropium [place] (Atrovent 0.02% (Neb)) 0.5 mg Q2H RESP THERAPY PRN NEB SHORTNESS OF BREATH Last administered on 08/14/18at 14:47; Admin Dose 0.5 MG; Start 08/08/18 at 00:00 Diagnostic Test (Pha) (Accu-Chek) 1 ea 02 XX Last administered on 08/15/18at 01:48; Admin Dose 1 EA; Start 08/09/18 at 02:00 Insulin Aspart (Novolog Insulin Pen) NOVOLOG *MILD* ALGORITHM WITH MEALS BEDTIME SC Last administered on 08/15/18at 11:50; Admin Dose 5 UNIT; Start 08/08/18 at 12:00 Miscellaneous Information 1 ea NOTE XX ; Start 08/08/18 at 11:30 Glucose (Glutose) 15 gm Q15M PRN PO DECREASED GLUCOSE; Start 08/08/18 at 11:30 Glucose (Glutose) 22.5 gm Q15M PRN PO DECREASED GLUCOSE; Start 08/08/18 at 11:30 Dextrose (D50w Syringe) 25 ml Q15M PRN IV DECREASED GLUCOSE; Start 08/08/18 at 11:30 Dextrose (D50w Syringe) 50 ml Q15M PRN IV DECREASED GLUCOSE; Start 08/08/18 at 11:30 Glucagon (Glucagen) 1 mg Q15M PRN IM DECREASED GLUCOSE; Start 08/08/18 at 11:30 Glucose (Glutose) 15 gm Q15M PRN BUCCAL DECREASED GLUCOSE; Start 08/08/18 at 11:30 Atorvastatin Calcium (Lipitor) 80 mg QHS PO Last administered on 08/14/18 20:14; Admin Dose 80 MG; Start 08/08/18 at 21:00 Metoprolol Tartrate (Lopressor) 100 mg BID PO Last administered on 08/15/18 09:13; Admin Dose 100 MG; Start 08/08/18 at 14:00 Rivaroxaban (Xarelto) 20 mg WITH DINNER PO Last administered on 08/14/18 17:36; Admin Dose 20 MG; Start 08/08/18 at 18:00 Pantoprazole (Protonix Tab) 40 mg DAILY@06 PO Last administered on 08/15/18 05:28; Admin Dose 40 MG; Start 08/09/18 at 06:00 Diltiazem HCl (Cardizem) 30 mg QID PO Last administered on 08/15/18 12:11; Admin Dose 30 MG; Start 08/08/18 at 18:30 Vancomycin HCl (Vanco Iv Per Pharmacy) VANCOMYCIN PER PHARMACY PER PROTOCOL XX ; Start 08/09/18 at 12:00 Cefepime HCl 50 ml @ 100 mls/hr Q12 IVPB Last administered on 08/15/18 09:11; Admin Dose 100 MLS/HR; Start 08/10/18 at 21:00 Digoxin (Digoxin) 0.125 mg DAILY@13 PO Last administered on 08/15/18 12:11; Admin Dose 0.125 MG; Start 08/11/18 at 13:00 Montelukast Sodium (Singulair) 10 mg HS PO Last administered on 08/14/18 20:14; Admin Dose 10 MG; Start 08/11/18 at 13:30 Furosemide (Lasix) 40 mg DAILY@0600 IV Last administered on 08/15/18 05:31; Admin Dose 40 MG; Start 08/12/18 at 11:30 Vancomycin HCl 250 ml @ 125 mls/hr Q12H IVPB Last administered on 08/15/18 10:35; Admin Dose 125 MLS/HR; Start 08/12/18 at 23:00 Insulin Aspart (Novolog Insulin Pen) 11 unit WITH MEALS SC Last administered on 08/15/18 11:50; Admin Dose 11 UNIT; Start 08/14/18 at 12:00 Insulin Glargine (Lantus) 15 units BID SC Last administered on 08/15/18at 08:20; Admin Dose 15 UNITS; Start 08/14/18 at 21:00 Metformin HCl (Glucophage) 1,000 mg WITH BREAKFAST DINNE PO Last administered on 08/15/18at 08:18; Admin Dose 1,000 MG; Start 08/14/18 at 18:00 Assessment/Plan Hospital Course (Demo Recall) IMP: 1. Acute on chronic hypercapnic resp failure 2/2 ADHF (RHF) 2. OHS/GHADA RECS: 1. Continue nocturnal BiPAP 2. Diuresis 3. Strict I/O's; daily weights 4. Titrate O2 to keep SpO2 88-92% Consider transfer to [facility] [place] planning. EDELMIRA DAWSON MD, [facility] August 15, 2018 13:13
[2018-08-15] MEDS ORDERED: INSULIN GLARGINE [LANTus] (100 UNITS/ML) SYG SC ONE (14:00)
--- NOTE | 2018-08-15 16:42 | PN ---
Date/Time of Note Date/Time of Note DATE: 08/15/18 TIME: 16:40 Assessment/Plan VTE Prophylaxis Risk score (from Nsg)>0 risk: 6 SCD applied (from Nsg): No SCD contraindicated: low risk/ambulating Pharmacological prophylaxis: LMWH Lines/Catheters IV Catheter Type (from Nrs): [place] Urinary Cath still in place: No Assessment/Plan Hospital Course A/P 1. Acute hypoxic, hypercapnic respiratory failure, stable, taper off O2. 2. Morbid obesity likely obesity hypoventilation syndrome. Unable to obtain home O2 consider outpatient sleep study 3. Acute decompensated diastolic CHF, stable and improved 4. Hypertension 5. Metabolic syndrome 6. Diabetes type 2 7. Developmental Delay 8. Ftt 9. A Fib; rt controlled S: events noted O: vss; a fib PE no pallor/ jvd irreg no mrg ctab bs+ nt nd; no r r g; obese no edema Result Diagram: 08/15/18 0449 08/15/18 0449 Results 24hrs Laboratory Tests Test 08/14/18 17:33 08/14/18 20:23 08/15/18 01:44 08/15/18 04:49 Bedside Glucose 332 H 332 H 220 White Blood Count 9.7 Red Blood Count 4.66 Hemoglobin 10.9 L Hematocrit 35.9 L Mean Corpuscular Volume 77.0 L Mean Corpuscular 23.4 L Hemoglobin Mean Corpuscular 30.4 L Hemoglobin Concent Red Cell Distribution 19.4 H Width Platelet Count 315 # Mean Platelet Volume 10.2 Immature Granulocytes % 0.300 Neutrophils % 70.2 Lymphocytes % 13.7 L Monocytes % 10.9 Eosinophils % 4.6 Basophils % 0.3 Nucleated Red Blood 0.0 Cells % Immature Granulocytes # 0.030 Neutrophils # 6.8 Lymphocytes # 1.3 Monocytes # 1.1 H Eosinophils # 0.4 Basophils # 0.0 Nucleated Red Blood 0.0 Cells # Sodium Level 141 Potassium Level 4.2 Chloride Level 100 Carbon Dioxide Level 37 H Anion Gap 4 L Blood Urea Nitrogen 23 H Creatinine 0.57 Glucose Level 232 H Calcium Level 9.6 Phosphorus Level 3.8 Magnesium Level 1.9 Albumin 3.5 Test 08/15/18 07:47 08/15/18 11:40 Bedside Glucose 242 H 315 H Exam/Review of Systems Exam Vitals Vital Signs Date Temp Pulse Resp B/P (MAP) Pulse Ox O2 O2 Flow FiO2 Time Delivery Rate 08/15/18 98.1 63 20 91/46 (61) 98 15:25 08/15/18 3.0 05:51 08/14/18 Nasal 20:25 Cannula 08/13/18 50 01:18 Intake and Output 08/14/18 08/14/18 08/15/18 1515:00 23:00 07:00 IntakeIntake Total 300 ml 850 ml 750 ml BalanceBalance 300 ml 850 ml 750 ml Results Results 24hrs Laboratory Tests Test 08/14/18 17:33 08/14/18 20:23 08/15/18 01:44 08/15/18 04:49 Bedside Glucose 332 H 332 H 220 White Blood Count 9.7 Red Blood Count 4.66 Hemoglobin 10.9 L Hematocrit 35.9 L Mean Corpuscular Volume 77.0 L Mean Corpuscular 23.4 L Hemoglobin Mean Corpuscular 30.4 L Hemoglobin Concent Red Cell Distribution 19.4 H Width Platelet Count 315 # Mean Platelet Volume 10.2 Immature Granulocytes % 0.300 Neutrophils % 70.2 Lymphocytes % 13.7 L Monocytes % 10.9 Eosinophils % 4.6 Basophils % 0.3 Nucleated Red Blood 0.0 Cells % Immature Granulocytes # 0.030 Neutrophils # 6.8 Lymphocytes # 1.3 Monocytes # 1.1 H Eosinophils # 0.4 Basophils # 0.0 Nucleated Red Blood 0.0 Cells # Sodium Level 141 Potassium Level 4.2 Chloride Level 100 Carbon Dioxide Level 37 H Anion Gap 4 L Blood Urea Nitrogen 23 H Creatinine 0.57 Glucose Level 232 H Calcium Level 9.6 Phosphorus Level 3.8 Magnesium Level 1.9 Albumin 3.5 Test 08/15/18 07:47 08/15/18 11:40 Bedside Glucose 242 H 315 H Medications Medication Current Medications IV Flush (NS 3 ml) 3 ml PER PROTOCOL IV ; Start 08/08/18 at 00:00 Nitroglycerin (Nitroglycerin (Sl Tab) 0.4 Mg) 1 tab Q5M PRN SL .CHEST PAIN; Start 08/08/18 at 00:00 Acetaminophen (Tylenol Tab) 650 mg Q6H PRN PO .PAIN 1-3 OR TEMP Last administered on 08/14/18at 18:22; Admin Dose 650 MG; Start 08/08/18 at 00:00 Ipratropium [place] (Atrovent 0.02% (Neb)) 0.5 mg Q2H RESP THERAPY PRN NEB SHORTNESS OF BREATH Last administered on 08/14/18 14:47; Admin Dose 0.5 MG; Start 08/08/18 at 00:00 Diagnostic Test (Pha) (Accu-Chek) 1 ea 02 XX Last administered on 08/15/18 01:48; Admin Dose 1 EA; Start 08/09/18 at 02:00 Insulin Aspart (Novolog Insulin Pen) NOVOLOG *MILD* ALGORITHM WITH MEALS BEDTIME SC Last administered on 08/15/18 11:50; Admin Dose 5 UNIT; Start 08/08/18 at 12:00 Miscellaneous Information 1 ea NOTE XX ; Start 08/08/18 at 11:30 Glucose (Glutose) 15 gm Q15M PRN PO DECREASED GLUCOSE; Start 08/08/18 at 11:30 Glucose (Glutose) 22.5 gm Q15M PRN PO DECREASED GLUCOSE; Start 08/08/18 at 11: 30 Dextrose (D50w Syringe) 25 ml Q15M PRN IV DECREASED GLUCOSE; Start 08/08/18 at 11:30 Dextrose (D50w Syringe) 50 ml Q15M PRN IV DECREASED GLUCOSE; Start 08/08/18 at 11:30 Glucagon (Glucagen) 1 mg Q15M PRN IM DECREASED GLUCOSE; Start 08/08/18 at 11:30 Glucose (Glutose) 15 gm Q15M PRN BUCCAL DECREASED GLUCOSE; Start 08/08/18 at 11:30 Atorvastatin Calcium (Lipitor) 80 mg QHS PO Last administered on 08/14/18 20:14; Admin Dose 80 MG; Start 08/08/18 at 21:00 Metoprolol Tartrate (Lopressor) 100 mg BID PO Last administered on 08/15/18 09:13; Admin Dose 100 MG; Start 08/08/18 at 14:00 Rivaroxaban (Xarelto) 20 mg WITH DINNER PO Last administered on 08/14/18 17:36; Admin Dose 20 MG; Start 08/08/18 at 18:00 Pantoprazole (Protonix Tab) 40 mg DAILY@06 PO Last administered on 08/15/18 05:28; Admin Dose 40 MG; Start 08/09/18 at 06:00 Diltiazem HCl (Cardizem) 30 mg QID PO Last administered on 08/15/18 12:11; Admin Dose 30 MG; Start 08/08/18 at 18:30 Vancomycin HCl (Vanco Iv Per Pharmacy) VANCOMYCIN PER PHARMACY PER PROTOCOL XX ; Start 08/09/18 at 12:00 Cefepime HCl 50 ml @ 100 mls/hr Q12 IVPB Last administered on 08/15/18 09:11; Admin Dose 100 MLS/HR; Start 08/10/18 at 21:00 Digoxin (Digoxin) 0.125 mg DAILY@13 PO Last administered on 08/15/18 12:11; Admin Dose 0.125 MG; Start 08/11/18 at 13:00 Montelukast Sodium (Singulair) 10 mg HS PO Last administered on 08/14/18 20:14; Admin Dose 10 MG; Start 08/11/18 at 13:30 Furosemide (Lasix) 40 mg DAILY@0600 IV Last administered on 08/15/18 05:31; Admin Dose 40 MG; Start 08/12/18 at 11:30 Vancomycin HCl 250 ml @ 125 mls/hr Q12H IVPB Last administered on 08/15/18 10:35; Admin Dose 125 MLS/HR; Start 08/12/18 at 23:00 Insulin Aspart (Novolog Insulin Pen) 11 unit WITH MEALS SC Last administered on 08/15/18 11:50; Admin Dose 11 UNIT; Start 08/14/18 at 12:00 Insulin Glargine (Lantus) 15 units BID SC Last administered on 08/15/18 08:20; Admin Dose 15 UNITS; Start 08/14/18 at 21:00 Metformin HCl (Glucophage) 1,000 mg WITH BREAKFAST DINNE PO Last administered on 08/15/18 08:18; Admin Dose 1,000 MG; Start 08/14/18 at 18:00 SREEDHAR HERNANDEZ MD August 15, 2018 16:42
[2018-08-15] MEDS: RIVAROXABAN 20 MG TABLET PO SCH (17:28)
[2018-08-15] MEDS: ACETAMINOPHEN 325 MG TAB PO PRN (18:28)
[2018-08-15] MEDS: ATORVASTATIN 80 MG TAB PO SCH (21:01)
[2018-08-15] MEDS: LACTOBACILLUS RHAMNOSUS CAP PO SCH (21:02)
[2018-08-15] MEDS: MONTELUKAST 10 MG TAB PO SCH (21:02)
[2018-08-16] MEDS: IPRATROPIUM (NEB) 0.5 MG/2.5 ML AMP NEB PRN (00:01)
[2018-08-16] MEDS: ACCU-CHEK XX SCH (02:00)
[2018-08-16] MEDS: PANTOPRAZOLE (EC) 40 MG TAB PO SCH (04:34)
[2018-08-16] MEDS: ACETAMINOPHEN 325 MG TAB PO PRN ×2 (04:34→16:20)
[2018-08-16] MEDS: FUROSEMIDE 40 MG INJ IV SCH (04:34)
[2018-08-16 04:46] VITALS: BP 136/68; PULSE 73; RESP 20
[2018-08-16 07:30] VITALS: BP 123/71; PULSE 89; RESP 20
[2018-08-16] MEDS: INSULIN ASPART [NOVOLOG] 3 ML PEN SC SCH ×7 (07:51→20:39)
[2018-08-16] MEDS: metFORMIN 500 MG TAB PO SCH ×2 (08:05→17:16)
[2018-08-16] MEDS: INSULIN GLARGINE [LANTus] (100 UNITS/ML) SYG SC SCH ×2 (08:07→20:53)
[2018-08-16] MEDS: DOCUSATE SODIUM 10 MG/ML (10ML CUP) PO SCH (08:20)
[2018-08-16] MEDS: LACTOBACILLUS RHAMNOSUS CAP PO SCH ×2 (08:20→20:30)
[2018-08-16] MEDS: CEFEPIME 1GM/50 ML (PMX) 50 ML IVPB SCH ×2 (08:20→20:29)
[2018-08-16] MEDS: METOPROLOL 100 MG TAB PO SCH ×2 (08:21→20:30)
[2018-08-16] MEDS: DILTIAZEM 30 MG TAB PO SCH ×4 (08:21→20:30)
[2018-08-16] MEDS: VANCOMYCIN 1 GM 250 ML IVPB SCH ×2 (10:57→22:45)
[2018-08-16 11:48] VITALS: BP 139/65; PULSE 80; RESP 20
[2018-08-16] MEDS: DIGOXIN 0.125 MG TAB PO SCH (13:18)
--- NOTE | 2018-08-16 13:57 | CONS ---
Consult Date/Type/Reason Admit Date/Time Aug 07, 2018 at 22:47 Initial Consult Date 08/12/18 Type of Consult Pulmonary Requesting Provider: MAC FRYE Date/Time of Note DATE: 08/16/18 TIME: 13:56 Subjective Patient stable this morning. No respiratory distress Objective Vital Signs Date Temp Pulse Resp B/P (MAP) Pulse Ox O2 O2 Flow FiO2 Time Delivery Rate 08/16/18 98.4 80 20 139/65 97 11:48 (89) 08/16/18 Nasal 3.0 09:10 Cannula 08/13/18 50 01:18 Intake and Output 08/15/18 08/15/18 08/16/18 1515:00 23:00 07:00 IntakeIntake Total 1500 ml 1200 ml BalanceBalance 1500 ml 1200 ml Exam GENERAL: VITAL SIGNS: per chart NECK: Supple. No JVD or lymphadenopathy. CARDIAC EXAM: S1, S2. No added sounds or murmurs. CHEST: Diminished air entry at bases ABDOMEN: Soft, nontender. No guarding or rebound. EXTREMITIES: No cyanosis, clubbing or edema. NEUROLOGIC: Generalized weakness. No focal deficits. Morbidly obese lady comfortable at rest Vent Setting Fraction of Inspired Oxygen pe: 31 Results/Medications Result Diagram: 08/16/18 0615 08/16/18 0615 Results 24 hrs Laboratory Tests Test 08/15/18 17:27 08/15/18 21:01 08/16/18 01:58 08/16/18 06:15 Bedside Glucose 151 145 142 White Blood Count 10.1 Red Blood Count 4.74 Hemoglobin 11.1 L Hematocrit 36.4 L Mean Corpuscular Volume 76.8 L Mean Corpuscular 23.4 L Hemoglobin Mean Corpuscular 30.5 L Hemoglobin Concent Red Cell Distribution 19.9 H Width Platelet Count 312 Mean Platelet Volume 9.6 Immature Granulocytes % 0.400 Neutrophils % 71.4 Lymphocytes % 14.0 L Monocytes % 10.3 Eosinophils % 3.5 Basophils % 0.4 Nucleated Red Blood 0.0 Cells % Immature Granulocytes # 0.040 H Neutrophils # 7.2 Lymphocytes # 1.4 Monocytes # 1.0 H Eosinophils # 0.4 Basophils # 0.0 Nucleated Red Blood 0.0 Cells # Sodium Level 141 Potassium Level 3.9 Chloride Level 96 L Carbon Dioxide Level 38 H Anion Gap 7 Blood Urea Nitrogen 21 H Creatinine 0.46 Est Glomerular Filtrat > 60 Rate mL/min Glucose Level 139 # Calcium Level 9.5 Magnesium Level 1.6 L Thyroid Stimulating 2.760 Hormone (TSH) Digoxin Level < 0.4 L Test 08/16/18 07:43 08/16/18 12:05 Bedside Glucose 141 146 Medications Current Medications IV Flush (NS 3 ml) 3 ml PER PROTOCOL IV ; Start 08/08/18 at 00:00 Nitroglycerin (Nitroglycerin (Sl Tab) 0.4 Mg) 1 tab Q5M PRN SL .CHEST PAIN; Start 08/08/18 at 00:00 Acetaminophen (Tylenol Tab) 650 mg Q6H PRN PO .PAIN 1-3 OR TEMP Last administered on 08/16/18at 04:34; Admin Dose 650 MG; Start 08/08/18 at 00:00 Ipratropium [place] (Atrovent 0.02% (Neb)) 0.5 mg Q2H RESP THERAPY PRN NEB SHORTNESS OF BREATH Last administered on 08/16/18at 00:01; Admin Dose 0.5 MG; Start 08/08/18 at 00:00 Diagnostic Test (Pha) (Accu-Chek) 1 ea 02 XX Last administered on 08/15/18at 01:48; Admin Dose 1 EA; Start 08/09/18 at 02:00 Insulin Aspart (Novolog Insulin Pen) NOVOLOG *MILD* ALGORITHM WITH MEALS BEDTIME SC Last administered on 08/16/18at 12:10; Admin Dose 1 UNIT; Start 08/08/18 at 12:00 Miscellaneous Information 1 ea NOTE XX ; Start 08/08/18 at 11:30 Glucose (Glutose) 15 gm Q15M PRN PO DECREASED GLUCOSE; Start 08/08/18 at 11:30 Glucose (Glutose) 22.5 gm Q15M PRN PO DECREASED GLUCOSE; Start 08/08/18 at 11:30 Dextrose (D50w Syringe) 25 ml Q15M PRN IV DECREASED GLUCOSE; Start 08/08/18 at 11:30 Dextrose (D50w Syringe) 50 ml Q15M PRN IV DECREASED GLUCOSE; Start 08/08/18 at 11:30 Glucagon (Glucagen) 1 mg Q15M PRN IM DECREASED GLUCOSE; Start 08/08/18 at 11:30 Glucose (Glutose) 15 gm Q15M PRN BUCCAL DECREASED GLUCOSE; Start 08/08/18 at 11:30 Atorvastatin Calcium (Lipitor) 80 mg QHS PO Last administered on 08/15/18 21:01; Admin Dose 80 MG; Start 08/08/18 at 21:00 Metoprolol Tartrate (Lopressor) 100 mg BID PO Last administered on 08/16/18 08:21; Admin Dose 100 MG; Start 08/08/18 at 14:00 Rivaroxaban (Xarelto) 20 mg WITH DINNER PO Last administered on 08/15/18 17:28; Admin Dose 20 MG; Start 08/08/18 at 18:00 Pantoprazole (Protonix Tab) 40 mg DAILY@06 PO Last administered on 08/16/18 04:34; Admin Dose 40 MG; Start 08/09/18 at 06:00 Diltiazem HCl (Cardizem) 30 mg QID PO Last administered on 08/16/18 13:18; Admin Dose 30 MG; Start 08/08/18 at 18:30 Vancomycin HCl (Vanco Iv Per Pharmacy) VANCOMYCIN PER PHARMACY PER PROTOCOL XX ; Start 08/09/18 at 12:00 Cefepime HCl 50 ml @ 100 mls/hr Q12 IVPB Last administered on 08/16/18 08:20; Admin Dose 100 MLS/HR; Start 08/10/18 at 21:00 Digoxin (Digoxin) 0.125 mg DAILY@13 PO Last administered on 08/16/18 13:18; Admin Dose 0.125 MG; Start 08/11/18 at 13:00 Montelukast Sodium (Singulair) 10 mg HS PO Last administered on 08/15/18 21:02; Admin Dose 10 MG; Start 08/11/18 at 13:30 Furosemide (Lasix) 40 mg DAILY@0600 IV Last administered on 08/16/18 04:34; Admin Dose 40 MG; Start 08/12/18 at 11:30 Vancomycin HCl 250 ml @ 125 mls/hr Q12H IVPB Last administered on 08/16/18 10:57; Admin Dose 125 MLS/HR; Start 08/12/18 at 23:00 Metformin HCl (Glucophage) 1,000 mg WITH BREAKFAST DINNE PO Last administered on 08/16/18 08:05; Admin Dose 1,000 MG; Start 08/14/18 at 18:00 Insulin Aspart (Novolog Insulin Pen) 15 unit WITH MEALS SC Last administered on 08/16/18at 12:10; Admin Dose 15 UNIT; Start 08/15/18 at 18:00 Insulin Glargine (Lantus) 22 units BID SC Last administered on 08/16/18at 08:07; Admin Dose 22 UNITS; Start 08/15/18 at 21:00 Lactobacillus Acidophilus/ Rhamnosus (Culturelle) 1 cap BID PO Last administered on 08/16/18at 08:20; Admin Dose 1 CAP; Start 08/15/18 at 21:00 Docusate Sodium (Colace Liquid Cup) 100 mg DAILY PO Last administered on 08/16/18at 08:20; Admin Dose 100 MG; Start 08/16/18 at 09:00 Assessment/Plan Hospital Course (Demo Recall) IMP: 1. Acute on chronic hypercapnic resp failure 2/2 ADHF (RHF) 2. OHS/GHADA RECS: 1. Continue nocturnal BiPAP 2. Diuresis 3. Strict I/O's; daily weights 4. Titrate O2 to keep SpO2 88-92% Consider transfer to [facility] [place] planning. EDELMIRA DAWSON MD, FCCP August 16, 2018 13:56
[2018-08-16 15:09] VITALS: BP 114/72; PULSE 83; RESP 20
--- NOTE | 2018-08-16 15:51 | PN ---
Date/Time of Note Date/Time of Note DATE: 08/16/18 TIME: 15:51 Assessment/Plan VTE Prophylaxis Risk score (from Nsg)>0 risk: 7 SCD applied (from Ns): Yes SCD contraindicated: low risk/ambulating Pharmacological prophylaxis: LMWH Lines/Catheters IV Catheter Type (from Nrsg): Peripheral IV Urinary Cath still in place: No Assessment/Plan Hospital Course A/P 1. Acute hypoxic, hypercapnic respiratory failure, stable, taper off O2. 2. Morbid obesity likely obesity hypoventilation syndrome. Unable to obtain home O2 consider outpatient sleep study 3. Acute decompensated diastolic CHF, stable and improved 4. Hypertension 5. Metabolic syndrome 6. Diabetes type 2 7. Developmental Delay 8. Ftt 9. A Fib; rt controlled S: /6 events noted /7: Still on supplemental oxygen. Nonproductive cough O: vss; a fib PE no pallor/ jvd irreg no mrg ctab bs+ nt nd; no r r g; obese no edema Result Diagram: 08/16/1815 08/16/1815 Results 24hrs Laboratory Tests Test 08/15/18 17:27 08/15/18 21:01 08/16/18 01:58 08/16/18 06:15 Bedside Glucose 151 145 142 White Blood Count 10.1 Red Blood Count 4.74 Hemoglobin 11.1 L Hematocrit 36.4 L Mean Corpuscular Volume 76.8 L Mean Corpuscular 23.4 L Hemoglobin Mean Corpuscular 30.5 L Hemoglobin Concent Red Cell Distribution 19.9 H Width Platelet Count 312 Mean Platelet Volume 9.6 Immature Granulocytes % 0.400 Neutrophils % 71.4 Lymphocytes % 14.0 L Monocytes % 10.3 Eosinophils % 3.5 Basophils % 0.4 Nucleated Red Blood 0.0 Cells % Immature Granulocytes # 0.040 H Neutrophils # 7.2 Lymphocytes # 1.4 Monocytes # 1.0 H Eosinophils # 0.4 Basophils # 0.0 Nucleated Red Blood 0.0 Cells # Sodium Level 141 Potassium Level 3.9 Chloride Level 96 L Carbon Dioxide Level 38 H Anion Gap 7 Blood Urea Nitrogen 21 H Creatinine 0.46 Est Glomerular Filtrat > 60 Rate mL/min Glucose Level 139 # Calcium Level 9.5 Magnesium Level 1.6 L Thyroid Stimulating 2.760 Hormone (TSH) Digoxin Level < 0.4 L Test 08/16/18 07:43 5/7/19 12:05 Bedside Glucose 141 146 Exam/Review of Systems Exam Vitals Vital Signs Date Temp Pulse Resp B/P (MAP) Pulse Ox O2 O2 Flow FiO2 Time Delivery Rate 08/16/18 3.0 15:47 08/16/18 98.2 83 20 114/72 95 15:09 (86) 08/16/18 Nasal 09:10 Cannula 08/13/18 50 01:18 Intake and Output 08/15/18 08/15/18 08/16/18 1414:59 22:59 06:59 IntakeIntake Total 1500 ml 1200 ml BalanceBalance 1500 ml 1200 ml Results Results 24hrs Laboratory Tests Test 08/15/18 17:27 08/15/18 21:01 08/16/18 01:58 08/16/18 06:15 Bedside Glucose 151 145 142 White Blood Count 10.1 Red Blood Count 4.74 Hemoglobin 11.1 L Hematocrit 36.4 L Mean Corpuscular Volume 76.8 L Mean Corpuscular 23.4 L Hemoglobin Mean Corpuscular 30.5 L Hemoglobin Concent Red Cell Distribution 19.9 H Width Platelet Count 312 Mean Platelet Volume 9.6 Immature Granulocytes % 0.400 Neutrophils % 71.4 Lymphocytes % 14.0 L Monocytes % 10.3 Eosinophils % 3.5 Basophils % 0.4 Nucleated Red Blood 0.0 Cells % Immature Granulocytes # 0.040 H Neutrophils # 7.2 Lymphocytes # 1.4 Monocytes # 1.0 H Eosinophils # 0.4 Basophils # 0.0 Nucleated Red Blood 0.0 Cells # Sodium Level 141 Potassium Level 3.9 Chloride Level 96 L Carbon Dioxide Level 38 H Anion Gap 7 Blood Urea Nitrogen 21 H Creatinine 0.46 Est Glomerular Filtrat > 60 Rate mL/min Glucose Level 139 # Calcium Level 9.5 Magnesium Level 1.6 L Thyroid Stimulating 2.760 Hormone (TSH) Digoxin Level < 0.4 L Test 08/16/18 07:43 08/16/18 12:05 Bedside Glucose 141 146 Medications Medication Current Medications IV Flush (NS 3 ml) 3 ml PER PROTOCOL IV ; Start 08/08/18 at 00:00 Nitroglycerin (Nitroglycerin (Sl Tab) 0.4 Mg) 1 tab Q5M PRN SL .CHEST PAIN; Start 08/08/18 at 00:00 Acetaminophen (Tylenol Tab) 650 mg Q6H PRN PO .PAIN 1-3 OR TEMP Last administered on 08/16/18 04:34; Admin Dose 650 MG; Start 08/08/18 at 00:00 Ipratropium [place] (Atrovent 0.02% (Neb)) 0.5 mg Q2H RESP THERAPY PRN NEB SHORTNESS OF BREATH Last administered on 08/16/18 00:01; Admin Dose 0.5 MG; St art 08/08/18 at 00:00 Diagnostic Test (Pha) (Accu-Chek) 1 ea 02 XX Last administered on 08/15/18 01: 48; Admin Dose 1 EA; Start 08/09/18 at 02:00 Insulin Aspart (Novolog Insulin Pen) NOVOLOG *MILD* ALGORITHM WITH MEALS BEDTIME SC Last administered on 08/16/18 12:10; Admin Dose 1 UNIT; Start 08/08/18 at 12:00 Miscellaneous Information 1 ea NOTE XX ; Start 08/08/18 at 11:30 Glucose (Glutose) 15 gm Q15M PRN PO DECREASED GLUCOSE; Start 08/08/18 at 11:30 Glucose (Glutose) 22.5 gm Q15M PRN PO DECREASED GLUCOSE; Start 08/08/18 at 11:30 Dextrose (D50w Syringe) 25 ml Q15M PRN IV DECREASED GLUCOSE; Start 08/08/18 at 11:30 Dextrose (D50w Syringe) 50 ml Q15M PRN IV DECREASED GLUCOSE; Start 08/08/18 at 11:30 Glucagon (Glucagen) 1 mg Q15M PRN IM DECREASED GLUCOSE; Start 08/08/18 at 11:30 Glucose (Glutose) 15 gm Q15M PRN BUCCAL DECREASED GLUCOSE; Start 08/08/18 at 11:30 Atorvastatin Calcium (Lipitor) 80 mg QHS PO Last administered on 08/15/18 21:01; Admin Dose 80 MG; Start 08/08/18 at 21:00 Metoprolol Tartrate (Lopressor) 100 mg BID PO Last administered on 08/16/18 08:21; Admin Dose 100 MG; Start 08/08/18 at 14:00 Rivaroxaban (Xarelto) 20 mg WITH DINNER PO Last administered on 08/15/18 17:28; Admin Dose 20 MG; Start 08/08/18 at 18:00 Pantoprazole (Protonix Tab) 40 mg DAILY@06 PO Last administered on 08/16/18 04:34; Admin Dose 40 MG; Start 08/09/18 at 06:00 Diltiazem HCl (Cardizem) 30 mg QID PO Last administered on 08/16/18 13:18; Admin Dose 30 MG; Start 08/08/18 at 18:30 Vancomycin HCl (Vanco Iv Per Pharmacy) VANCOMYCIN PER PHARMACY PER PROTOCOL XX ; Start 08/09/18 at 12:00 Cefepime HCl 50 ml @ 100 mls/hr Q12 IVPB Last administered on 08/16/18 08:20; Admin Dose 100 MLS/HR; Start 08/10/18 at 21:00 Digoxin (Digoxin) 0.125 mg DAILY@13 PO Last administered on 08/16/18 13:18; Admin Dose 0.125 MG; Start 08/11/18 at 13:00 Montelukast Sodium (Singulair) 10 mg HS PO Last administered on 08/15/18 21:02; Admin Dose 10 MG; Start 08/11/18 at 13:30 Furosemide (Lasix) 40 mg DAILY@0600 IV Last administered on 08/16/18 04:34; Admin Dose 40 MG; Start 08/12/18 at 11:30 Vancomycin HCl 250 ml @ 125 mls/hr Q12H IVPB Last administered on 08/16/18 10:57; Admin Dose 125 MLS/HR; Start 08/12/18 at 23:00 Metformin HCl (Glucophage) 1,000 mg WITH BREAKFAST DINNE PO Last administered on 08/16/18 08:05; Admin Dose 1,000 MG; Start 08/14/18 at 18:00 Insulin Aspart (Novolog Insulin Pen) 15 unit WITH MEALS SC Last administered on 08/16/18 12:10; Admin Dose 15 UNIT; Start 08/15/18 at 18:00 Insulin Glargine (Lantus) 22 units BID SC Last administered on 08/16/18 08:07; Admin Dose 22 UNITS; Start 08/15/18 at 21:00 Lactobacillus Acidophilus/ Rhamnosus (Culturelle) 1 cap BID PO Last adminis tered on 08/16/18 08:20; Admin Dose 1 CAP; Start 08/15/18 at 21:00 Docusate Sodium (Colace Liquid Cup) 100 mg DAILY PO Last administered on 08/16/18at 08:20; Admin Dose 100 MG; Start 08/16/18 at 09:00 SREEDHAR HERNANDEZ MD August 16, 2018 15:51
[2018-08-16] MEDS ORDERED: GUAIFENESIN/DM 5ML CUP PO PRN (16:00)
[2018-08-16] MEDS: RIVAROXABAN 20 MG TABLET PO SCH (17:16)
[2018-08-16 19:48] VITALS: BP 127/69; PULSE 93; RESP 20
[2018-08-16] MEDS: MONTELUKAST 10 MG TAB PO SCH (20:30)
[2018-08-16] MEDS: MAGNESIUM OXIDE 400 MG TAB PO SCH (20:30)
[2018-08-16] MEDS: ATORVASTATIN 80 MG TAB PO SCH (20:30)
[2018-08-16 23:52] VITALS: BP 125/64; PULSE 85; RESP 20
[2018-08-17] MEDS: ACCU-CHEK XX SCH (02:00)
[2018-08-17] MEDS: ACETAMINOPHEN 325 MG TAB PO PRN (04:42)
[2018-08-17] MEDS: PANTOPRAZOLE (EC) 40 MG TAB PO SCH (04:42)
[2018-08-17] MEDS: FUROSEMIDE 40 MG INJ IV SCH (04:44)
[2018-08-17 07:53] VITALS: BP 130/71; PULSE 86; RESP 19
[2018-08-17] MEDS: metFORMIN 500 MG TAB PO SCH ×2 (07:59→17:03)
[2018-08-17] MEDS: INSULIN GLARGINE [LANTus] (100 UNITS/ML) SYG SC SCH ×2 (08:04→21:12)
[2018-08-17] MEDS: INSULIN ASPART [NOVOLOG] 3 ML PEN SC SCH ×7 (08:05→21:00)
[2018-08-17] MEDS: CEFEPIME 1GM/50 ML (PMX) 50 ML IVPB SCH ×2 (08:48→21:07)
[2018-08-17] MEDS: METOPROLOL 100 MG TAB PO SCH ×2 (08:49→21:09)
[2018-08-17] MEDS: LACTOBACILLUS RHAMNOSUS CAP PO SCH ×2 (08:49→21:09)
[2018-08-17] MEDS: MAGNESIUM OXIDE 400 MG TAB PO SCH ×2 (08:49→21:07)
[2018-08-17] MEDS: DOCUSATE SODIUM 10 MG/ML (10ML CUP) PO SCH (08:49)
[2018-08-17] MEDS: DILTIAZEM 30 MG TAB PO SCH ×4 (08:50→21:08)
[2018-08-17] MEDS: VANCOMYCIN 1 GM 250 ML IVPB SCH (10:40)
[2018-08-17 11:16] VITALS: BP 146/63; PULSE 81; RESP 18
--- NOTE | 2018-08-17 11:56 | CONS ---
Consult Date/Type/Reason Admit Date/Time Aug 07, 2018 at 22:47 Initial Consult Date 08/12/18 Type of Consult Pulmonary Requesting Provider: MAC FRYE Date/Time of Note DATE: 08/17/18 TIME: 11:56 Subjective Patient comfortable this morning. Objective Vital Signs Date Temp Pulse Resp B/P (MAP) Pulse Ox O2 O2 Flow FiO2 Time Delivery Rate 08/17/18 98.6 81 18 146/63 95 11:16 (90) 08/17/18 Nasal 3.0 07:27 Cannula Intake and Output 08/16/18 08/16/18 08/17/18 1515:00 23:00 07:00 IntakeIntake Total 950 ml 1130 ml BalanceBalance 950 ml 1130 ml Exam GENERAL: VITAL SIGNS: per chart NECK: Supple. No JVD or lymphadenopathy. CARDIAC EXAM: S1, S2. No added sounds or murmurs. CHEST: Diminished air entry at bases ABDOMEN: Soft, nontender. No guarding or rebound. EXTREMITIES: No cyanosis, clubbing or edema. NEUROLOGIC: Generalized weakness. No focal deficits. Morbidly obese lady comfortable at rest Vent Setting Fraction of Inspired Oxygen pe: 31 Results/Medications Result Diagram: 08/17/18 0508 08/17/18 0508 Results 24 hrs Laboratory Tests Test 08/16/18 12:05 08/16/18 17:11 08/16/18 20:33 08/17/18 02:16 Bedside Glucose 146 168 214 168 Test 08/17/18 05:08 08/17/18 07:53 08/17/18 10:12 08/17/18 11:52 White Blood Count 9.5 Red Blood Count 4.68 Hemoglobin 10.9 L Hematocrit 36.3 L Mean Corpuscular Volume 77.6 L Mean Corpuscular 23.3 L Hemoglobin Mean Corpuscular 30.0 L Hemoglobin Concent Red Cell Distribution 20.0 H Width Platelet Count 307 Mean Platelet Volume 10.1 Immature Granulocytes % 0.300 Neutrophils % 70.9 Lymphocytes % 14.4 L Monocytes % 9.9 Eosinophils % 4.1 Basophils % 0.4 Nucleated Red Blood 0.0 Cells % Immature Granulocytes # 0.030 Neutrophils # 6.8 Lymphocytes # 1.4 Monocytes # 0.9 Eosinophils # 0.4 Basophils # 0.0 Nucleated Red Blood 0.0 Cells # Sodium Level 140 Potassium Level 4.1 Chloride Level 98 Carbon Dioxide Level 35 H Anion Gap 7 Blood Urea Nitrogen 23 H Creatinine 0.48 Est Glomerular Filtrat > 60 Rate mL/min Glucose Level 155 Calcium Level 9.4 Digoxin Level 0.5 L Bedside Glucose 146 155 Vancomycin Level Trough 10.1 Medications Current Medications IV Flush (NS 3 ml) 3 ml PER PROTOCOL IV ; Start 08/08/18 at 00:00 Nitroglycerin (Nitroglycerin (Sl Tab) 0.4 Mg) 1 tab Q5M PRN SL .CHEST PAIN; Start 08/08/18 at 00:00 Acetaminophen (Tylenol Tab) 650 mg Q6H PRN PO .PAIN 1-3 OR TEMP Last administered on 08/17/18at 04:42; Admin Dose 650 MG; Start 08/08/18 at 00:00 Ipratropium [place] (Atrovent 0.02% (Neb)) 0.5 mg Q2H RESP THERAPY PRN NEB SHORTNESS OF BREATH Last administered on 08/16/18at 00:01; Admin Dose 0.5 MG; Start 08/08/18 at 00:00 Diagnostic Test (Pha) (Accu-Chek) 1 ea 02 XX Last administered on 08/15/18at 01:48; Admin Dose 1 EA; Start 08/09/18 at 02:00 Insulin Aspart (Novolog Insulin Pen) NOVOLOG *MILD* ALGORITHM WITH MEALS BEDTIME SC Last administered on 08/17/18at 08:05; Admin Dose 1 UNIT; Start 07/12 12/29 at 12:00 Miscellaneous Information 1 ea NOTE XX ; Start 08/08/18 at 11:30 Glucose (Glutose) 15 gm Q15M PRN PO DECREASED GLUCOSE; Start 08/08/18 at 11:30 Glucose (Glutose) 22.5 gm Q15M PRN PO DECREASED GLUCOSE; Start 08/08/18 at 11:30 Dextrose (D50w Syringe) 25 ml Q15M PRN IV DECREASED GLUCOSE; Start 08/08/18 at 11:30 Dextrose (D50w Syringe) 50 ml Q15M PRN IV DECREASED GLUCOSE; Start 08/08/18 at 11:30 Glucagon (Glucagen) 1 mg Q15M PRN IM DECREASED GLUCOSE; Start 08/08/18 at 11:30 Glucose (Glutose) 15 gm Q15M PRN BUCCAL DECREASED GLUCOSE; Start 08/08/18 at 11:30 Atorvastatin Calcium (Lipitor) 80 mg QHS PO Last administered on 08/16/18 20:30; Admin Dose 80 MG; Start 08/08/18 at 21:00 Metoprolol Tartrate (Lopressor) 100 mg BID PO Last administered on 08/17/18 08:49; Admin Dose 100 MG; Start 08/08/18 at 14:00 Rivaroxaban (Xarelto) 20 mg WITH DINNER PO Last administered on 08/16/18 17:16; Admin Dose 20 MG; Start 08/08/18 at 18:00 Pantoprazole (Protonix Tab) 40 mg DAILY@06 PO Last administered on 08/17/18 04:42; Admin Dose 40 MG; Start 08/09/18 at 06:00 Diltiazem HCl (Cardizem) 30 mg QID PO Last administered on 08/17/18 08:50; Admin Dose 30 MG; Start 08/08/18 at 18:30 Vancomycin HCl (Vanco Iv Per Pharmacy) VANCOMYCIN PER PHARMACY PER PROTOCOL XX ; Start 08/09/18 at 12:00 Cefepime HCl 50 ml @ 100 mls/hr Q12 IVPB Last administered on 08/17/18 08:48; Admin Dose 100 MLS/HR; Start 08/10/18 at 21:00 Digoxin (Digoxin) 0.125 mg DAILY@13 PO Last administered on 08/16/18 13:18; Admin Dose 0.125 MG; Start 08/11/18 at 13:00 Montelukast Sodium (Singulair) 10 mg HS PO Last administered on 08/16/18 20:30; Admin Dose 10 MG; Start 08/11/18 at 13:30 Furosemide (Lasix) 40 mg DAILY@0600 IV Last administered on 08/17/18 04:44; Admin Dose 40 MG; Start 08/12/18 at 11:30 Vancomycin HCl 250 ml @ 125 mls/hr Q12H IVPB Last administered on 08/17/18 10:40; Admin Dose 125 MLS/HR; Start 08/12/18 at 23:00 Metformin HCl (Glucophage) 1,000 mg WITH BREAKFAST DINNE PO Last administered on 08/17/18 07:59; Admin Dose 1,000 MG; Start 08/14/18 at 18:00 Insulin Aspart (Novolog Insulin Pen) 15 unit WITH MEALS SC Last administered on 08/17/18 08:05; Admin Dose 15 UNIT; Start 08/15/18 at 18:00 Insulin Glargine (Lantus) 22 units BID SC Last administered on 08/17/18 08:04; Admin Dose 22 UNITS; Start 08/15/18 at 21:00 Lactobacillus Acidophilus/ Rhamnosus (Culturelle) 1 cap BID PO Last admi nistered on 08/17/18 08:49; Admin Dose 1 CAP; Start 08/15/18 at 21:00 Docusate Sodium (Colace Liquid Cup) 100 mg DAILY PO Last administered on 08/17/18 08:49; Admin Dose 100 MG; Start 08/16/18 at 09:00 Guaifenesin/ Dextromethorphan (Robitussin Dm Liquid Cup) 10 ml Q4H PRN PO COUGH; Start 08/16/18 at 16:00 Magnesium Oxide (Mag-Ox 400) 400 mg BID PO Last administered on 08/17/18 08:49; Admin Dose 400 MG; Start 08/16/18 at 21:00 Assessment/Plan Hospital Course (Demo Recall) IMP: 1. Acute on chronic hypercapnic resp failure 2/2 ADHF (RHF) 2. OHS/GHADA RECS: 1. Continue nocturnal BiPAP 2. Diuresis 3. Strict I/O's; daily weights 4. Titrate O2 to keep SpO2 88-92% Consider transfer to [facility] [place] planning. EDELMIRA DAWSON MD, [facility] August 17, 2018 11:56
--- NOTE | 2018-08-17 11:59 | CONS ---
Consult Date/Type/Reason Admit Date/Time Aug 07, 2018 at 22:47 Initial Consult Date 08/12/18 Type of Consult Pulmonary Requesting Provider: MAC FRYE Date/Time of Note DATE: 08/17/18 TIME: 11:58 Subjective Patient comfortable no respiratory distress Objective Vital Signs Date Temp Pulse Resp B/P (MAP) Pulse Ox O2 O2 Flow FiO2 Time Delivery Rate 08/17/18 98.6 81 18 146/63 95 11:16 (90) 08/17/18 Nasal 3.0 07:27 Cannula Intake and Output 08/16/18 08/16/18 08/17/18 1515:00 23:00 07:00 IntakeIntake Total 950 ml 1130 ml BalanceBalance 950 ml 1130 ml Exam GENERAL: VITAL SIGNS: per chart NECK: Supple. No JVD or lymphadenopathy. CARDIAC EXAM: S1, S2. No added sounds or murmurs. CHEST: Diminished air entry at bases ABDOMEN: Soft, nontender. No guarding or rebound. EXTREMITIES: No cyanosis, clubbing or edema. NEUROLOGIC: Generalized weakness. No focal deficits. Morbidly obese lady comfortable at rest Vent Setting Fraction of Inspired Oxygen pe: 31 Results/Medications Result Diagram: 08/17/18 0508 08/17/18 0508 Results 24 hrs Laboratory Tests Test 08/16/18 12:05 08/16/18 17:11 08/16/18 20:33 08/17/18 02:16 Bedside Glucose 146 168 214 168 Test 08/17/18 05:08 08/17/18 07:53 08/17/18 10:12 08/17/18 11:52 White Blood Count 9.5 Red Blood Count 4.68 Hemoglobin 10.9 L Hematocrit 36.3 L Mean Corpuscular Volume 77.6 L Mean Corpuscular 23.3 L Hemoglobin Mean Corpuscular 30.0 L Hemoglobin Concent Red Cell Distribution 20.0 H Width Platelet Count 307 Mean Platelet Volume 10.1 Immature Granulocytes % 0.300 Neutrophils % 70.9 Lymphocytes % 14.4 L Monocytes % 9.9 Eosinophils % 4.1 Basophils % 0.4 Nucleated Red Blood 0.0 Cells % Immature Granulocytes # 0.030 Neutrophils # 6.8 Lymphocytes # 1.4 Monocytes # 0.9 Eosinophils # 0.4 Basophils # 0.0 Nucleated Red Blood 0.0 Cells # Sodium Level 140 Potassium Level 4.1 Chloride Level 98 Carbon Dioxide Level 35 H Anion Gap 7 Blood Urea Nitrogen 23 H Creatinine 0.48 Est Glomerular Filtrat > 60 Rate mL/min Glucose Level 155 Calcium Level 9.4 Digoxin Level 0.5 L Bedside Glucose 146 155 Vancomycin Level Trough 10.1 Medications Current Medications IV Flush (NS 3 ml) 3 ml PER PROTOCOL IV ; Start 08/08/18 at 00:00 Nitroglycerin (Nitroglycerin (Sl Tab) 0.4 Mg) 1 tab Q5M PRN SL .CHEST PAIN; Start 08/08/18 at 00:00 Acetaminophen (Tylenol Tab) 650 mg Q6H PRN PO .PAIN 1-3 OR TEMP Last administered on 08/17/18at 04:42; Admin Dose 650 MG; Start 08/08/18 at 00:00 Ipratropium [place] (Atrovent 0.02% (Neb)) 0.5 mg Q2H RESP THERAPY PRN NEB SHORTNESS OF BREATH Last administered on 08/16/18at 00:01; Admin Dose 0.5 MG; Start 08/08/18 at 00:00 Diagnostic Test (Pha) (Accu-Chek) 1 ea 02 XX Last administered on 08/15/18at 01:48; Admin Dose 1 EA; Start 08/09/18 at 02:00 Insulin Aspart (Novolog Insulin Pen) NOVOLOG *MILD* ALGORITHM WITH MEALS BEDTIME SC Last administered on 08/17/18at 08:05; Admin Dose 1 UNIT; Start 08/08/18 at 12:00 Miscellaneous Information 1 ea NOTE XX ; Start 08/08/18 at 11:30 Glucose (Glutose) 15 gm Q15M PRN PO DECREASED GLUCOSE; Start 08/08/18 at 11:30 Glucose (Glutose) 22.5 gm Q15M PRN PO DECREASED GLUCOSE; Start 08/08/18 at 11:30 Dextrose (D50w Syringe) 25 ml Q15M PRN IV DECREASED GLUCOSE; Start 08/08/18 at 11:30 Dextrose (D50w Syringe) 50 ml Q15M PRN IV DECREASED GLUCOSE; Start 08/08/18 at 11:30 Glucagon (Glucagen) 1 mg Q15M PRN IM DECREASED GLUCOSE; Start 08/08/18 at 11:30 Glucose (Glutose) 15 gm Q15M PRN BUCCAL DECREASED GLUCOSE; Start 08/08/18 at 11:30 Atorvastatin Calcium (Lipitor) 80 mg QHS PO Last administered on 08/16/18 20:30; Admin Dose 80 MG; Start 08/08/18 at 21:00 Metoprolol Tartrate (Lopressor) 100 mg BID PO Last administered on 08/17/18 08:49; Admin Dose 100 MG; Start 08/08/18 at 14:00 Rivaroxaban (Xarelto) 20 mg WITH DINNER PO Last administered on 08/16/18 17:16; Admin Dose 20 MG; Start 08/08/18 at 18:00 Pantoprazole (Protonix Tab) 40 mg DAILY@06 PO Last administered on 08/17/18 04:42; Admin Dose 40 MG; Start 08/09/18 at 06:00 Diltiazem HCl (Cardizem) 30 mg QID PO Last administered on 08/17/18 08:50; Admin Dose 30 MG; Start 08/08/18 at 18:30 Vancomycin HCl (Vanco Iv Per Pharmacy) VANCOMYCIN PER PHARMACY PER PROTOCOL XX ; Start 08/09/18 at 12:00 Cefepime HCl 50 ml @ 100 mls/hr Q12 IVPB Last administered on 08/17/18 08:48; Admin Dose 100 MLS/HR; Start 08/10/18 at 21:00 Digoxin (Digoxin) 0.125 mg DAILY@13 PO Last administered on 08/16/18 13:18; Admin Dose 0.125 MG; Start 08/11/18 at 13:00 Montelukast Sodium (Singulair) 10 mg HS PO Last administered on 08/16/18 20:30; Admin Dose 10 MG; Start 08/11/18 at 13:30 Furosemide (Lasix) 40 mg DAILY@0600 IV Last administered on 08/17/18 04:44; Admin Dose 40 MG; Start 08/12/18 at 11:30 Vancomycin HCl 250 ml @ 125 mls/hr Q12H IVPB Last administered on 08/17/18 10:40; Admin Dose 125 MLS/HR; Start 08/12/18 at 23:00 Metformin HCl (Glucophage) 1,000 mg WITH BREAKFAST DINNE PO Last administered on 08/17/18 07:59; Admin Dose 1,000 MG; Start 08/14/18 at 18:00 Insulin Aspart (Novolog Insulin Pen) 15 unit WITH MEALS SC Last administered on 08/17/18 08:05; Admin Dose 15 UNIT; Start 08/15/18 at 18:00 Insulin Glargine (Lantus) 22 units BID SC Last administered on 08/17/18 08:04; Admin Dose 22 UNITS; Start 08/15/18 at 21:00 Lactobacillus Acidophilus/ Rhamnosus (Culturelle) 1 cap BID PO Last administered on 08/17/18 08:49; Admin Dose 1 CAP; Start 08/15/18 at 21:00 Docusate Sodium (Colace Liquid Cup) 100 mg DAILY PO Last administered on 08/17/18 08:49; Admin Dose 100 MG; Start 08/16/18 at 09:00 Guaifenesin/ Dextromethorphan (Robitussin Dm Liquid Cup) 10 ml Q4H PRN PO COUGH; Start 08/16/18 at 16:00 Magnesium Oxide (Mag-Ox 400) 400 mg BID PO Last administered on 08/17/18 08:49; Admin Dose 400 MG; Start 08/16/18 at 21:00 Assessment/Plan Hospital Course (Demo Recall) IMP: 1. Acute on chronic hypercapnic resp failure 2/2 ADHF (RHF) 2. OHS/GHADA RECS: 1. Continue nocturnal BiPAP 2. Diuresis 3. Strict I/O's; daily weights 4. Titrate O2 to keep SpO2 88-92% Consider transfer to [facility] planning. EDELMIRA DAWSON MD, [facility] August 17, 2018 11:59
[2018-08-17] MEDS: DIGOXIN 0.125 MG TAB PO SCH (12:21)
[2018-08-17 15:03] VITALS: BP 117/63; PULSE 82; RESP 19
[2018-08-17] MEDS: RIVAROXABAN 20 MG TABLET PO SCH (17:02)
[2018-08-17 20:00] VITALS: BP 127/61; PULSE 86; RESP 18
[2018-08-17] MEDS: MONTELUKAST 10 MG TAB PO SCH (21:07)
[2018-08-17] MEDS: ATORVASTATIN 80 MG TAB PO SCH (21:08)
--- NOTE | 2018-08-17 21:54 | PN ---
Date/Time of Note Date/Time of Note DATE: 08/17/18 TIME: 21:51 Assessment/Plan VTE Prophylaxis Risk score (from Nsg)>0 risk: 3 SCD applied (from Nsg): Yes SCD contraindicated: low risk/ambulating Pharmacological prophylaxis: LMWH Lines/Catheters IV Catheter Type (from Nrsg): Peripheral IV Urinary Cath still in place: No Assessment/Plan Hospital Course A/P 1. Ac hypoxic, hypercapnic respiratory failure, stable, taper off O2. Unable to obtain home o2. 2. Morbid obesity, likely obesity hypoventilation syndrome. consider outpatient sleep study 3. Acute decompensated diastolic CHF, EF=60%. stable and improved 4. Hypertension 5. Metabolic syndrome 6. Diabetes type 2 7. Developmental Delay 8. Ftt 9. A Fib; rt controlled 10. SHS; fall risk? consider lovenox/coumadin. S: /6 events noted /: Still on supplemental oxygen. Nonproductive cough 08/17: eating ok; no desiree distress. occ anxious. occ ankle pains. diet indiscretion at home. family updated. O: vss; a fib PE no pallor/ jvd irreg no mrg ctab bs+ nt nd; no r r g; obese no edema; tender ankles Result Diagram: 08/17/18 0508 08/17/18 0508 Results 24hrs Laboratory Tests Test 08/17/18 02:16 08/17/18 05:08 08/17/18 07:53 08/17/18 10:12 Bedside Glucose 168 146 White Blood Count 9.5 Red Blood Count 4.68 Hemoglobin 10.9 L Hematocrit 36.3 L Mean Corpuscular Volume 77.6 L Mean Corpuscular 23.3 L Hemoglobin Mean Corpuscular 30.0 L Hemoglobin Concent Red Cell Distribution 20.0 H Width Platelet Count 307 Mean Platelet Volume 10.1 Immature Granulocytes % 0.300 Neutrophils % 70.9 Lymphocytes % 14.4 L Monocytes % 9.9 Eosinophils % 4.1 Basophils % 0.4 Nucleated Red Blood 0.0 Cells % Immature Granulocytes # 0.030 Neutrophils # 6.8 Lymphocytes # 1.4 Monocytes # 0.9 Eosinophils # 0.4 Basophils # 0.0 Nucleated Red Blood 0.0 Cells # Sodium Level 140 Potassium Level 4.1 Chloride Level 98 Carbon Dioxide Level 35 H Anion Gap 7 Blood Urea Nitrogen 23 H Creatinine 0.48 Est Glomerular Filtrat > 60 Rate mL/min Glucose Level 155 Calcium Level 9.4 Digoxin Level 0.5 L Vancomycin Level Trough 10.1 Test 08/17/18 11:52 08/17/18 17:01 08/17/18 21:01 Bedside Glucose 155 131 78 Exam/Review of Systems Exam Vitals Vital Signs Date Temp Pulse Resp B/P (MAP) Pulse Ox O2 O2 Flow FiO2 Time Delivery Rate 08/17/18 98.0 86 18 127/61 98 20:00 (83) 08/17/18 Nasal 3.0 19:57 Cannula Intake and Output 08/16/18 08/16/18 08/17/18 1414:59 22:59 06:59 IntakeIntake Total 950 ml 1130 ml BalanceBalance 950 ml 1130 ml Results Results 24hrs Laboratory Tests Test 08/17/18 02:16 08/17/18 05:08 08/17/18 07:53 08/17/18 10:12 Bedside Glucose 168 146 White Blood Count 9.5 Red Blood Count 4.68 Hemoglobin 10.9 L Hematocrit 36.3 L Mean Corpuscular Volume 77.6 L Mean Corpuscular 23.3 L Hemoglobin Mean Corpuscular 30.0 L Hemoglobin Concent Red Cell Distribution 20.0 H Width Platelet Count 307 Mean Platelet Volume 10.1 Immature Granulocytes % 0.300 Neutrophils % 70.9 Lymphocytes % 14.4 L Monocytes % 9.9 Eosinophils % 4.1 Basophils % 0.4 Nucleated Red Blood 0.0 Cells % Immature Granulocytes # 0.030 Neutrophils # 6.8 Lymphocytes # 1.4 Monocytes # 0.9 Eosinophils # 0.4 Basophils # 0.0 Nucleated Red Blood 0.0 Cells # Sodium Level 140 Potassium Level 4.1 Chloride Level 98 Carbon Dioxide Level 35 H Anion Gap 7 Blood Urea Nitrogen 23 H Creatinine 0.48 Est Glomerular Filtrat > 60 Rate mL/min Glucose Level 155 Calcium Level 9.4 Digoxin Level 0.5 L Vancomycin Level Trough 10.1 Test 08/17/18 11:52 08/17/18 17:01 08/17/18 21:01 Bedside Glucose 155 131 78 Medications Medication Current Medications IV Flush (NS 3 ml) 3 ml PER PROTOCOL IV ; Start 08/08/18 at 00:00 Nitroglycerin (Nitroglycerin (Sl Tab) 0.4 Mg) 1 tab Q5M PRN SL .CHEST PAIN; Start 08/08/18 at 00:00 Acetaminophen (Tylenol Tab) 650 mg Q6H PRN PO .PAIN 1-3 OR TEMP Last administered on 08/17/18 04:42; Admin Dose 650 MG; Start 08/08/18 at 00:00 Ipratropium [place] (Atrovent 0.02% (Neb)) 0.5 mg Q2H RESP THERAPY PRN NEB SHORTNESS OF BREATH Last administered on 08/16/18at 00:01; Admin Dose 0.5 MG; Start 08/08/18 at 00:00 Diagnostic Test (Pha) (Accu-Chek) 1 ea 02 XX Last administered on 08/15/18 01:48; Admin Dose 1 EA; Start 08/09/18 at 02:00 Insulin Aspart (Novolog Insulin Pen) NOVOLOG *MILD* ALGORITHM WITH MEALS BEDTIME SC Last administered on 08/17/18 12:00; Admin Dose 1 UNIT; Start 08/08/18 at 12:00 Miscellaneous Information 1 ea NOTE XX ; Start 08/08/18 at 11:30 Glucose (Glutose) 15 gm Q15M PRN PO DECREASED GLUCOSE; Start 08/08/18 at 11:30 Glucose (Glutose) 22.5 gm Q15M PRN PO DECREASED GLUCOSE; Start 08/08/18 at 11:30 Dextrose (D50w Syringe) 25 ml Q15M PRN IV DECREASED GLUCOSE; Start 08/08/18 at 11:30 Dextrose (D50w Syringe) 50 ml Q15M PRN IV DECREASED GLUCOSE; Start 08/08/18 at 11:30 Glucagon (Glucagen) 1 mg Q15M PRN IM DECREASED GLUCOSE; Start 08/08/18 at 11:30 Glucose (Glutose) 15 gm Q15M PRN BUCCAL DECREASED GLUCOSE; Start 08/08/18 at 11:30 Atorvastatin Calcium (Lipitor) 80 mg QHS PO Last administered on 08/17/18at 21:0 8; Admin Dose 80 MG; Start 08/08/18 at 21:00 Metoprolol Tartrate (Lopressor) 100 mg BID PO Last administered on 08/17/18 21:09; Admin Dose 100 MG; Start 08/08/18 at 14:00 Rivaroxaban (Xarelto) 20 mg WITH DINNER PO Last administered on 08/17/18 17:02; Admin Dose 20 MG; Start 08/08/18 at 18:00 Pantoprazole (Protonix Tab) 40 mg DAILY@06 PO Last administered on 08/17/18 04:42; Admin Dose 40 MG; Start 08/09/18 at 06:00 Diltiazem HCl (Cardizem) 30 mg QID PO Last administered on 08/17/18 21:08; Ad min Dose 30 MG; Start 08/08/18 at 18:30 Vancomycin HCl (Vanco Iv Per Pharmacy) VANCOMYCIN PER PHARMACY PER PROTOCOL XX ; Start 08/09/18 at 12:00 Cefepime HCl 50 ml @ 100 mls/hr Q12 IVPB Last administered on 08/17/18 21:07; Admin Dose 100 MLS/HR; Start 08/10/18 at 21:00 Digoxin (Digoxin) 0.125 mg DAILY@13 PO Last administered on 08/17/18 12:21; Admin Dose 0.125 MG; Start 08/11/18 at 13:00 Montelukast Sodium (Singulair) 10 mg HS PO Last administered on 08/17/18 21:07; Admin Dose 10 MG; Start 08/11/18 at 13:30 Furosemide (Lasix) 40 mg DAILY@0600 IV Last administered on 08/17/18 04:44; Admin Dose 40 MG; Start 08/12/18 at 11:30 Metformin HCl (Glucophage) 1,000 mg WITH BREAKFAST DINNE PO Last administered on 08/17/18 17:03; Admin Dose 1,000 MG; Start 08/14/18 at 18:00 Insulin Aspart (Novolog Insulin Pen) 15 unit WITH MEALS SC Last administered on 08/17/18 17:11; Admin Dose 15 UNIT; Start 08/15/18 at 18:00 Insulin Glargine (Lantus) 22 units BID SC Last administered on 08/17/18 21:12; Admin Dose 22 UNITS; Start 08/15/18 at 21:00 Lactobacillus Acidophilus/ Rhamnosus (Culturelle) 1 cap BID PO Last administered on 08/17/18 21:09; Admin Dose 1 CAP; Start 08/15/18 at 21:00 Docusate Sodium (Colace Liquid Cup) 100 mg DAILY PO Last administered on 5/8/19at 08:49; Admin Dose 100 MG; Start 08/16/18 at 09:00 Guaifenesin/ Dextromethorphan (Robitussin Dm Liquid Cup) 10 ml Q4H PRN PO COUGH; Start 08/16/18 at 16:00 Magnesium Oxide (Mag-Ox 400) 400 mg BID PO Last administered on 08/17/18at 21:07; Admin Dose 400 MG; Start 08/16/18 at 21:00 Vancomycin HCl 1.25 gm/Sodium Chloride 250 ml @ 83.333 mls/ hr Q12H IVPB ; Start 08/17/18 at 23:00 SREEDHAR HERNANDEZ MD August 17, 2018 21:54
[2018-08-17] MEDS ORDERED: VANCOMYCIN HCL 1.25 GM in SOD CHLORIDE 0.9% 250 ML IVPB SCH (23:00)
[2018-08-18 00:15] VITALS: BP 138/61; PULSE 70; RESP 18
[2018-08-18 00:40] VITALS: BP 128/73; PULSE 72; RESP 18
[2018-08-18] MEDS: VANCOMYCIN HCL 1.25 GM in SOD CHLORIDE 0.9% 250 ML IVPB SCH ×3 (01:00→23:00)
[2018-08-18] MEDS: ACCU-CHEK XX SCH (02:00)
[2018-08-18] MEDS: FUROSEMIDE 40 MG INJ IV SCH (06:35)
--- NOTE | 2018-08-18 07:46 | PN ---
Date/Time of Note Date/Time of Note DATE: 08/18/18 TIME: 07:45 Assessment/Plan VTE Prophylaxis Risk score (from Nsg)>0 risk: 3 SCD applied (from Nsg): Yes SCD contraindicated: low risk/ambulating Pharmacological prophylaxis: LMWH, rivaroxaban Lines/Catheters IV Catheter Type (from Nrsg): Peripheral IV Urinary Cath still in place: No Assessment/Plan Hospital Course A/P 1. Ac hypoxic, hypercapnic respiratory failure, stable, taper off O2. Unable to obtain home o2 equipment. 2. Morbid obesity, likely obesity hypoventilation syndrome. consider outpatient sleep study 3. Acute decompensated diastolic CHF, EF=60%. stable and improved 4. Hypertension 5. Metabolic syndrome 6. Diabetes type 2 7. Developmental Delay 8. Ftt; transfer to SNF? 9. A Fib; rt controlled 10. SHS; fall risk? consider lovenox/coumadin. S: /6 events noted /: Still on supplemental oxygen. Nonproductive cough 08/17: eating ok; no desiree distress. occ anxious. occ ankle pains. diet indiscretion at home. family updated. 08/18: No distress. Incontinence. Occasionally anxiety O: vss PE no pallor/ jvd irreg no mrg ctab bs+ nt nd; no r r g; obese no edema; tender ankles Result Diagram: 08/17/18 0508 08/17/18 0508 Results 24hrs Laboratory Tests Test 08/17/18 07:53 08/17/18 10:12 08/17/18 11:52 08/17/18 17:01 Bedside Glucose 146 155 131 Vancomycin Level Trough 10.1 Test 08/17/18 21:01 Bedside Glucose 78 Exam/Review of Systems Exam Vitals Vital Signs Date Temp Pulse Resp B/P (MAP) Pulse Ox O2 O2 Flow FiO2 Time Delivery Rate 08/18/18 Nasal 3.0 01:00 Cannula 08/18/18 98.1 72 18 128/73 98 00:40 (91) Intake and Output 08/17/18 08/17/18 08/18/18 1515:00 23:00 07:00 IntakeIntake Total 1200 ml 890 ml BalanceBalance 1200 ml 890 ml Results Results 24hrs Laboratory Tests Test 08/17/18 07:53 08/17/18 10:12 08/17/18 11:52 08/17/18 17:01 Bedside Glucose 146 155 131 Vancomycin Level Trough 10.1 Test 08/17/18 21:01 Bedside Glucose 78 Medications Medication Current Medications IV Flush (NS 3 ml) 3 ml PER PROTOCOL IV ; Start 08/08/18 at 00:00 Nitroglycerin (Nitroglycerin (Sl Tab) 0.4 Mg) 1 tab Q5M PRN SL .CHEST PAIN; Start 08/08/18 at 00:00 Acetaminophen (Tylenol Tab) 650 mg Q6H PRN PO .PAIN 1-3 OR TEMP Last administered on 08/17/18at 04:42; Admin Dose 650 MG; Start 08/08/18 at 00:00 Ipratropium [place] (Atrovent 0.02% (Neb)) 0.5 mg Q2H RESP THERAPY PRN NEB SHORTNESS OF BREATH Last administered on 08/16/18at 00:01; Admin Dose 0.5 MG; Sta rt 08/08/18 at 00:00 Diagnostic Test (Pha) (Accu-Chek) 1 ea 02 XX Last administered on 08/15/18at 01:4 8; Admin Dose 1 EA; Start 08/09/18 at 02:00 Insulin Aspart (Novolog Insulin Pen) NOVOLOG *MILD* ALGORITHM WITH MEALS BEDTIME SC Last administered on 08/17/18at 12:00; Admin Dose 1 UNIT; Start 08/08/18 at 12:00 Miscellaneous Information 1 ea NOTE XX ; Start 08/08/18 at 11:30 Glucose (Glutose) 15 gm Q15M PRN PO DECREASED GLUCOSE; Start 08/08/18 at 11:30 Glucose (Glutose) 22.5 gm Q15M PRN PO DECREASED GLUCOSE; Start 08/08/18 at 11:30 Dextrose (D50w Syringe) 25 ml Q15M PRN IV DECREASED GLUCOSE; Start 08/08/18 at 11:30 Dextrose (D50w Syringe) 50 ml Q15M PRN IV DECREASED GLUCOSE; Start 08/08/18 at 11:30 Glucagon (Glucagen) 1 mg Q15M PRN IM DECREASED GLUCOSE; Start 08/08/18 at 11:30 Glucose (Glutose) 15 gm Q15M PRN BUCCAL DECREASED GLUCOSE; Start 08/08/18 at 11:30 Atorvastatin Calcium (Lipitor) 80 mg QHS PO Last administered on 08/17/18 21:08; Admin Dose 80 MG; Start 08/08/18 at 21:00 Metoprolol Tartrate (Lopressor) 100 mg BID PO Last administered on 08/17/18 21:09; Admin Dose 100 MG; Start 08/08/18 at 14:00 Rivaroxaban (Xarelto) 20 mg WITH DINNER PO Last administered on 08/17/18 17:02; Admin Dose 20 MG; Start 08/08/18 at 18:00 Vancomycin HCl (Vanco Iv Per Pharmacy) VANCOMYCIN PER PHARMACY PER PROTOCOL XX ; Start 08/09/18 at 12:00; Stop 08/18/18 at 23:00 Montelukast Sodium (Singulair) 10 mg HS PO Last administered on 08/17/18 21:07; Admin Dose 10 MG; Start 08/11/18 at 13:30 Furosemide (Lasix) 40 mg DAILY@0600 IV Last administered on 08/18/18 06:35; Admin Dose 40 MG; Start 08/12/18 at 11:30 Metformin HCl (Glucophage) 1,000 mg WITH BREAKFAST DINNE PO Last administered on 08/17/18 17:03; Admin Dose 1,000 MG; Start 08/14/18 at 18:00 Insulin Aspart (Novolog Insulin Pen) 15 unit WITH MEALS SC Last administered on 08/17/18 17:11; Admin Dose 15 UNIT; Start 08/15/18 at 18:00 Insulin Glargine (Lantus) 22 units BID SC Last administered on 08/17/18 21:12; Admin Dose 22 UNITS; Start 08/15/18 at 21:00 Lactobacillus Acidophilus/ Rhamnosus (Culturelle) 1 cap BID PO Last admini stered on 08/17/18 21:09; Admin Dose 1 CAP; Start 08/15/18 at 21:00 Docusate Sodium (Colace Liquid Cup) 100 mg DAILY PO Last administered on 08/17/18 08:49; Admin Dose 100 MG; Start 08/16/18 at 09:00 Guaifenesin/ Dextromethorphan (Robitussin Dm Liquid Cup) 10 ml Q4H PRN PO COUGH; Start 08/16/18 at 16:00 Magnesium Oxide (Mag-Ox 400) 400 mg BID PO Last administered on 5/8/19at 21:07; Admin Dose 400 MG; Start 08/16/18 at 21:00 Cefepime HCl 50 ml @ 100 mls/hr Q12 IVPB ; Start 08/18/18 at 09:00; Stop 08/18/18 at 23:00 Vancomycin HCl 1.25 gm/Sodium Chloride 250 ml @ 83.333 mls/ hr Q12H IVPB Last administered on 08/18/18at 01:00; Admin Dose 83.333 MLS/HR; Start 08/17/18 at 23:00; Stop 08/18/18 at 23:00 Lisinopril (Zestril) 2.5 mg DAILY PO ; Start 08/18/18 at 09:00 Diltiazem HCl (Cardizem Cd) 120 mg DAILY PO ; Start 08/18/18 at 09:00 Famotidine (Pepcid) 20 mg HS PO ; Start 08/18/18 at 21:00 Nystatin (Nystatin Powder) 1 applic BID TOP ; Start 08/18/18 at 09:00 SREEDHAR HERNANDEZ MD August 18, 2018 07:46
[2018-08-18] MEDS: INSULIN ASPART [NOVOLOG] 3 ML PEN SC SCH ×7 (07:52→21:00)
[2018-08-18 08:00] VITALS: BP 119/80; PULSE 80; RESP 17
[2018-08-18] MEDS: DILTIAZEM (CD) 120 MG CAP PO SCH (09:36)
[2018-08-18] MEDS: CEFEPIME 1GM/50 ML (PMX) 50 ML IVPB SCH ×2 (09:36→21:21)
[2018-08-18] MEDS: DOCUSATE SODIUM 10 MG/ML (10ML CUP) PO SCH (09:36)
[2018-08-18] MEDS: metFORMIN 500 MG TAB PO SCH ×2 (09:36→18:17)
[2018-08-18] MEDS: LISINOPRIL 5 MG TAB PO SCH (09:37)
[2018-08-18] MEDS: MAGNESIUM OXIDE 400 MG TAB PO SCH ×2 (09:37→21:21)
[2018-08-18] MEDS: LACTOBACILLUS RHAMNOSUS CAP PO SCH ×2 (09:37→21:21)
[2018-08-18] MEDS: METOPROLOL 100 MG TAB PO SCH ×2 (09:38→21:26)
[2018-08-18] MEDS: NYSTATIN 30 GM POWDER BTL TOP SCH ×2 (09:38→21:36)
[2018-08-18] MEDS: ACETAMINOPHEN 325 MG TAB PO PRN (10:20)
[2018-08-18] MEDS: INSULIN GLARGINE [LANTus] (100 UNITS/ML) SYG SC SCH ×2 (10:48→21:31)
[2018-08-18 14:54] VITALS: BP 105/55; PULSE 81; RESP 18
[2018-08-18] MEDS: RIVAROXABAN 20 MG TABLET PO SCH (18:17)
[2018-08-18 20:49] VITALS: BP 124/62; PULSE 78; RESP 18
[2018-08-18] MEDS: MONTELUKAST 10 MG TAB PO SCH (21:21)
[2018-08-18] MEDS: FAMOTIDINE 20 MG TAB PO SCH (21:21)
[2018-08-18] MEDS: ATORVASTATIN 80 MG TAB PO SCH (21:21)
[2018-08-19] MEDS: ACCU-CHEK XX SCH (02:00)
[2018-08-19 02:45] VITALS: BP 142/92; PULSE 60; RESP 18
[2018-08-19] MEDS: FUROSEMIDE 40 MG INJ IV SCH (05:35)
[2018-08-19 05:38] VITALS: BP 118/60; PULSE 80
[2018-08-19] MEDS: INSULIN ASPART [NOVOLOG] 3 ML PEN SC SCH ×7 (07:57→20:45)
[2018-08-19] MEDS: metFORMIN 500 MG TAB PO SCH ×2 (07:58→17:31)
[2018-08-19] MEDS: INSULIN GLARGINE [LANTus] (100 UNITS/ML) SYG SC SCH ×2 (08:03→20:47)
[2018-08-19] MEDS: DOCUSATE SODIUM 10 MG/ML (10ML CUP) PO SCH (08:15)
[2018-08-19] MEDS: MAGNESIUM OXIDE 400 MG TAB PO SCH ×2 (08:15→20:48)
[2018-08-19] MEDS: METOPROLOL 100 MG TAB PO SCH ×2 (08:16→20:49)
[2018-08-19] MEDS: DILTIAZEM (CD) 120 MG CAP PO SCH (08:16)
[2018-08-19] MEDS: LISINOPRIL 5 MG TAB PO SCH (08:16)
[2018-08-19] MEDS: LACTOBACILLUS RHAMNOSUS CAP PO SCH ×2 (08:16→20:47)
[2018-08-19] MEDS: NYSTATIN 30 GM POWDER BTL TOP SCH ×2 (08:17→20:50)
[2018-08-19 08:51] VITALS: BP 123/67; PULSE 92; RESP 17
--- NOTE | 2018-08-19 12:27 | DS ---
Date/Time of Note Date/Time of Note DATE: 08/19/18 TIME: 12:25 Discharge Summary Admission/Discharge Info Admit Date/Time Aug 07, 2018 at 22:47 Discharge Date/Time Patient Condition: Stable Consults [facility] Procedures Chest CT IMPRESSION: 1. Bilateral bronchial wall thickening and areas of air trapping are seen, suggestive of bronchitis / bronchiolitis. 2. Mild cardiomegaly. Coronary arterial and aortic atherosclerotic calcifications. 3. No evidence of mass, lymphadenopathy, or acute infiltrate. 4. Hepatic steatosis. Hx of Present Illness -year-old female admitted with shortness of breath Hospital Course Hospitalist coverage/hospital course managed for decompensated CHF, hypercapnic hypoxic respiratory failure, and likely hypoventilation syndrome. Unable to taper off oxygen. Unable to obtain home DME. Patient stable to transfer to SNF. Daughter Cristine updated earlier this week. 1. Ac hypoxic, hypercapnic respiratory failure, stable, taper off O2. Unable to obtain home o2 equipment. 2. Morbid obesity, likely obesity hypoventilation syndrome. consider outpatient sleep study 3. Acute decompensated diastolic CHF, EF=60%. stable and improved 4. Hypertension 5. Metabolic syndrome 6. Diabetes type 2 7. Developmental Delay 8. Ftt; transfer to SNF? 9. A Fib; rt controlled 10. SHS; fall risk? consider lovenox/coumadin. S: /6 events noted /: Still on supplemental oxygen. Nonproductive cough 08/17: eating ok; no desiree distress. occ anxious. occ ankle pains. diet indiscretion at home. family updated. 08/18: No distress. Incontinence. Occasionally anxiety /10 no events status post BM O: vss PE no pallor/ jvd irreg no mrg ctab bs+ nt nd; no r r g; obese no edema; tender ankles Home Meds Reported Medications Insulin Isophan/Regular (Humulin 70/30) 100 Units/Ml Susp, 40 UNIT SC AC BREAKFAST DINNER, EA 08/08/18 Metoprolol Tartrate* (Lopressor*) 100 Mg Tablet, 100 MG PO BID, #60 TAB 08/08/18 Hydralazine Hcl* (Hydralazine Hcl*) 25 Mg Tab, 25 MG PO BID, #60 TAB 08/08/18 Metformin Hcl* (Metformin Hcl*) 1,000 Mg Tablet, 1000 MG PO WITH BREAKFAST DINNE, #60 TAB 08/08/18 Atorvastatin* (Atorvastatin*) 80 Mg Tablet, 80 MG PO QHS, #30 TAB 08/08/18 Esomeprazole Mag Trihydrate (Nexium) 20 Mg Capsule.dr, 20 MG PO DAILY, #30 CAP 08/08/18 Furosemide* (Furosemide*) 20 Mg Tablet, 20 MG PO DAILY, #60 TAB 08/08/18 Amlodipine Besylate* (Norvasc*) 5 Mg Tablet, 5 MG PO DAILY, TAB 08/08/18 Losartan Potassium* (Losartan Potassium*) 100 Mg Tablet, 100 MG PO DAILY, TAB 08/08/18 Rivaroxaban* (Xarelto*) 20 Mg Tablet, 20 MG PO WITH DINNER, TAB 08/08/18 Primary Care Provider Care Physician No Primary Time spent on discharge: > 30 minutes Pending Labs Laboratory Tests Test 08/18/18 17:26 08/18/18 21:24 08/19/18 07:17 08/19/18 07:18 Bedside 88 150 Glucose mg/dL (70-220) mg/dL (70-220) Phosphorus 4.3 Level mg/dl (2.5-4.9 ) Magnesium 1.7 Level mg/dl (1.7-2.5 ) White Blood 9.2 Count 10^3/ul (4.8-1 0.8) Red Blood 4.35 Count 10^6/ul (4.20- 5.40) Hemoglobin 10.2 g/dl (12.0-16. 0) Hematocrit 33.9 % (37.0-47.0) Mean 77.9 Corpuscular fl (82.0-101.0 Volume ) Mean 23.4 Corpuscular pg (29.0-33.0) Hemoglobin Mean 30.1 Corpuscular g/dl (32.0-37. Hemoglobin Conc 0) ent Red Cell 20.3 Distribution % (11.5-14.5) Width Platelet Count 299 10^3/UL (140-4 15) Mean Platelet 10.4 Volume fl (7.4-10.4) Immature 0.300 Granulocytes % % (0.001-0.429 ) Neutrophils % 66.1 % (39.0-77.0) Lymphocytes % 17.5 % (15.0-51.0) Monocytes % 11.3 % (0.0-11.0) Eosinophils % 4.4 % (0.0-7.0) Basophils % 0.4 % (0.0-2.0) Nucleated Red 0.0 Blood Cells % /100WBC (0.0-0 .0) Immature 0.030 Granulocytes # 10^3/ul (0.0-0 .031) Neutrophils # 6.1 10^3/ul (1.6-7 .5) Lymphocytes # 1.6 10^3/ul (0.8-2 .9) Monocytes # 1.0 10^3/ul (0.3-0 .9) Eosinophils # 0.4 10^3/ul (0.0-0 .5) Basophils # 0.0 10^3/ul (0.0-0 .1) Nucleated Red 0.0 Blood Cells # 10^3/ul (0.0-0 .0) Sodium Level 139 mmol/L (135-14 4) Potassium 4.0 Level mmol/L (3.5-5. 1) Chloride Level 93 mmol/L (97-110 ) Carbon Dioxide 40 Level mmol/L (21-31) Anion Gap 6 (5-13) Blood Urea 21 Nitrogen mg/dl (7-20) Creatinine 0.46 mg/dl (0.44-1. 00) Est Glomerular > 60 Filtrat mL/min (>60) Rate mL/min Glucose Level 78 mg/dl (70-220) Calcium Level 9.6 mg/dl (8.4-10. 2) Test 08/19/18 07:56 Bedside 77 Glucose mg/dL (70-220) SREEDHAR HERNANDEZ MD August 19, 2018 12:27
[2018-08-19 14:00] VITALS: BP 114/76; PULSE 70; RESP 18
[2018-08-19] MEDS: ACETAMINOPHEN 325 MG TAB PO PRN (14:24)
[2018-08-19] MEDS: RIVAROXABAN 20 MG TABLET PO SCH (17:31)
[2018-08-19 20:00] VITALS: BP 126/54; PULSE 83; RESP 18
[2018-08-19] MEDS: FAMOTIDINE 20 MG TAB PO SCH (20:48)
[2018-08-19] MEDS: ATORVASTATIN 80 MG TAB PO SCH (20:48)
[2018-08-19] MEDS: MONTELUKAST 10 MG TAB PO SCH (20:48)
[2018-08-20] MEDS: ACCU-CHEK XX SCH (01:47)
[2018-08-20 02:00] VITALS: BP 125/77; PULSE 69; RESP 18
[2018-08-20] MEDS: ACETAMINOPHEN 325 MG TAB PO PRN ×3 (02:52→20:09)
[2018-08-20] MEDS: FUROSEMIDE 40 MG INJ IV SCH (05:28)
[2018-08-20 05:31] VITALS: BP 121/66; PULSE 77
[2018-08-20] MEDS: INSULIN ASPART [NOVOLOG] 3 ML PEN SC SCH ×7 (08:00→21:00)
[2018-08-20 08:08] VITALS: BP 129/56; PULSE 86; RESP 17
[2018-08-20] MEDS: LISINOPRIL 5 MG TAB PO SCH (08:39)
[2018-08-20] MEDS: LACTOBACILLUS RHAMNOSUS CAP PO SCH ×2 (08:40→20:11)
[2018-08-20] MEDS: MAGNESIUM OXIDE 400 MG TAB PO SCH ×2 (08:40→20:13)
[2018-08-20] MEDS: DILTIAZEM (CD) 120 MG CAP PO SCH (08:40)
[2018-08-20] MEDS: NYSTATIN 30 GM POWDER BTL TOP SCH ×2 (08:41→21:37)
[2018-08-20] MEDS: METOPROLOL 100 MG TAB PO SCH ×2 (08:41→20:12)
[2018-08-20] MEDS: metFORMIN 500 MG TAB PO SCH ×2 (08:44→17:51)
[2018-08-20] MEDS: INSULIN GLARGINE [LANTus] (100 UNITS/ML) SYG SC SCH ×2 (08:47→20:57)
[2018-08-20] MEDS: DOCUSATE SODIUM 10 MG/ML (10ML CUP) PO SCH (08:58)
--- NOTE | 2018-08-20 12:48 | DS ---
Date/Time of Note Date/Time of Note DATE: 08/20/18 TIME: 12:47 Discharge Summary Admission/Discharge Info Admit Date/Time Aug 07, 2018 at 22:47 Discharge Date/Time Patient Condition: Stable Hx of Present Illness 72-year-old female admitted with shortness of breath Hospital Course Hospitalist coverage/hospital course managed for decompensated CHF, hypercapnic hypoxic respiratory failure, and likely hypoventilation syndrome. Unable to taper off oxygen. Unable to obtain home DME. Patient stable to transfer to SNF. Daughter updated earlier this week. -Pending sleep SNF placement due to hypoxia/ deconditioning. 1. Ac hypoxic, hypercapnic respiratory failure, stable, taper off O2. Unable to obtain home o2 equipment. 2. Morbid obesity, likely obesity hypoventilation syndrome. consider outpatient sleep study 3. Acute decompensated diastolic CHF, EF=60%. stable and improved 4. Hypertension 5. Metabolic syndrome 6. Diabetes type 2 7. Developmental Delay 8. Ftt; transfer to SNF? 9. A Fib; rt controlled 10. SHS; fall risk? consider lovenox/coumadin. S: /6 events noted /7: Still on supplemental oxygen. Nonproductive cough 08/17: eating ok; no desiree distress. occ anxious. occ ankle pains. diet indiscretion at home. family updated. 08/18: No distress. Incontinence. Occasionally anxiety /10 no events status post BM 08/20 neck pain. No loss of speech vision nausea vomiting or fever. O: vss PE no pallor/ jvd; no local warmth of her neck irreg no mrg ctab bs+ nt nd; no r r g; obese no edema; tender ankles Home Meds Reported Medications Insulin Isophan/Regular (Humulin 70/30) 100 Units/Ml Susp, 40 UNIT SC AC BREAKFAST DINNER, EA 08/08/18 Metoprolol Tartrate* (Lopressor*) 100 Mg Tablet, 100 MG PO BID, #60 TAB 08/08/18 Hydralazine Hcl* (Hydralazine Hcl*) 25 Mg Tab, 25 MG PO BID, #60 TAB 08/08/18 Metformin Hcl* (Metformin Hcl*) 1,000 Mg Tablet, 1000 MG PO WITH BREAKFAST DINNE, #60 TAB 08/08/18 Atorvastatin* (Atorvastatin*) 80 Mg Tablet, 80 MG PO QHS, #30 TAB 08/08/18 Esomeprazole Mag Trihydrate (Nexium) 20 Mg Capsule.dr, 20 MG PO DAILY, #30 CAP 08/08/18 Furosemide* (Furosemide*) 20 Mg Tablet, 20 MG PO DAILY, #60 TAB 08/08/18 Amlodipine Besylate* (Norvasc*) 5 Mg Tablet, 5 MG PO DAILY, TAB 08/08/18 Losartan Potassium* (Losartan Potassium*) 100 Mg Tablet, 100 MG PO DAILY, TAB 08/08/18 Rivaroxaban* (Xarelto*) 20 Mg Tablet, 20 MG PO WITH DINNER, TAB 08/08/18 Primary Care Provider Care Physician No Primary Time spent on discharge: < 30 minutes Pending Labs Laboratory Tests Test 08/19/18 17:28 08/19/18 20:45 08/20/18 08:01 08/20/18 12:10 Bedside 131 124 120 224 Glucose mg/dL (70-220) mg/dL (70-220) mg/dL (70-220) mg/dL (70-220) SREEDHAR HERNANDEZ MD August 20, 2018 12:48
[2018-08-20 14:43] VITALS: BP 126/63; PULSE 79; RESP 17
[2018-08-20] MEDS: RIVAROXABAN 20 MG TABLET PO SCH (17:51)
[2018-08-20] MEDS: MONTELUKAST 10 MG TAB PO SCH (20:11)
[2018-08-20] MEDS: ATORVASTATIN 80 MG TAB PO SCH (20:11)
[2018-08-20] MEDS: FAMOTIDINE 20 MG TAB PO SCH (20:11)
[2018-08-20 20:25] VITALS: BP 132/61; PULSE 91; RESP 18
[2018-08-21] MEDS: ACCU-CHEK XX SCH (01:41)
[2018-08-21 02:35] VITALS: BP 118/77; PULSE 78; RESP 18
[2018-08-21] MEDS: ACETAMINOPHEN 325 MG TAB PO PRN ×2 (06:00→14:16)
[2018-08-21] MEDS: FUROSEMIDE 20 MG TAB PO SCH (06:01)
[2018-08-21] MEDS: INSULIN ASPART [NOVOLOG] 3 ML PEN SC SCH ×7 (08:00→21:00)
[2018-08-21 08:04] VITALS: BP 118/60; PULSE 79; RESP 18
[2018-08-21] MEDS: INSULIN GLARGINE [LANTus] (100 UNITS/ML) SYG SC SCH ×2 (09:04→21:00)
[2018-08-21] MEDS: metFORMIN 500 MG TAB PO SCH ×2 (09:10→17:39)
[2018-08-21] MEDS: LISINOPRIL 5 MG TAB PO SCH (09:11)
[2018-08-21] MEDS: MAGNESIUM OXIDE 400 MG TAB PO SCH ×2 (09:11→20:58)
[2018-08-21] MEDS: METOPROLOL 100 MG TAB PO SCH ×2 (09:11→20:59)
[2018-08-21] MEDS: DILTIAZEM (CD) 120 MG CAP PO SCH (09:11)
[2018-08-21] MEDS: LACTOBACILLUS RHAMNOSUS CAP PO SCH ×2 (09:11→20:57)
[2018-08-21] MEDS: DOCUSATE SODIUM 10 MG/ML (10ML CUP) PO SCH (09:11)
[2018-08-21] MEDS: NYSTATIN 30 GM POWDER BTL TOP SCH ×2 (09:12→21:08)
--- NOTE | 2018-08-21 10:26 | PN ---
Date/Time of Note Date/Time of Note DATE: 08/21/18 TIME: 10:25 Assessment/Plan VTE Prophylaxis Risk score (from Nsg)>0 risk: 4 SCD applied (from Nsg): Yes SCD contraindicated: low risk/ambulating Pharmacological prophylaxis: LMWH Lines/Catheters IV Catheter Type (from Nrsg): [place] Lock Urinary Cath still in place: No Assessment/Plan Hospital Course Hospitalist coverage/hospital course managed for decompensated CHF, hypercapnic hypoxic respiratory failure, and likely hypoventilation syndrome. Unable to taper off oxygen. Unable to obtain home DMEoxygen? Patient stable to transfer to SNF. Daughter updated earlier this week. -Pending SNF placement due to hypoxia/ deconditioning. Addendum: Will evaluate for home O2. 1. Ac hypoxic, hypercapnic respiratory failure, stable, taper off O2. Unable to obtain home o2? 2. Morbid obesity, likely obesity hypoventilation syndrome. consider outpatient sleep study 3. Acute decompensated diastolic CHF, EF=60%. stable and improved 4. Hypertension 5. Metabolic syndrome 6. Diabetes type 2 7. Developmental Delay 8. Ftt; transfer to SNF? 9. A Fib; rt controlled 10. SHS; fall risk? consider lovenox/coumadin. S: /6 events noted /: Still on supplemental oxygen. Nonproductive cough 08/17: eating ok; no desiree distress. occ anxious. occ ankle pains. diet tita scretion at home. family updated. 08/18: No distress. Incontinence. Occasionally anxiety /10 no events status post BM 08/20 neck pain. No loss of speech vision nausea vomiting or fever. 08/21: No distress no events O: vss PE no pallor/ jvd irreg no mrg ctab bs+ nt nd; no r r g; obese no edema; tender ankles Result Diagram: 08/19/1818 08/19/18717 Results 24hrs Laboratory Tests Test 08/20/18 12:10 08/20/18 16:18 08/20/18 17:27 08/20/18 20:55 Bedside Glucose 224 H 127 137 Blood Gas Blood arterial Specimen Source Arterial Blood 08/20/2018 4:50:4 Date Drawn 5 PM Arterial Blood pH 7.429 (Temp corrected) Arterial Blood 67.2 H pCO2 (Temp correct) Arterial Blood 99.6 pO2 (Temp corrected) Arterial Blood 43.5 *H HCO3 Arterial Blood 16.2 H Base Excess Arterial Blood 97.4 Oxygen Saturation Harsha Test N/A Arterial Blood LB Gas Puncture Site Arterial 0.3 Blood Carboxyhemo globin Arterial Blood 0.3 Methemoglobin Blood Gas A-a O2 13.4 Differential Oxyhemoglobin 96.8 Percent Blood Gas 37.0 Temperature Blood Gas NASAL CANNULA Modality FiO2 27.0 Blood Gas Critical Value DAVID HEREDIA Read Back Blood Gas [facility] Notified Whom Blood Gas 08/20/2018 5:01:2 Notified Time 3 PM Test 08/21/18 08:32 Bedside Glucose 103 Exam/Review of Systems Exam Vitals Vital Signs Date Temp Pulse Resp B/P (MAP) Pulse Ox O2 O2 Flow FiO2 Time Delivery Rate 08/21/18 98.5 79 18 118/60 96 08:04 (79) 08/21/18 Nasal 3.0 08:00 Cannula Intake and Output 08/20/18 08/20/18 08/21/18 1515:00 23:00 07:00 IntakeIntake Total 480 ml 240 ml BalanceBalance 480 ml 240 ml Results Results 24hrs Laboratory Tests Test 08/20/18 12:10 08/20/18 16:18 08/20/18 17:27 08/20/18 20:55 Bedside Glucose 224 H 127 137 Blood Gas Blood arterial Specimen Source Arterial Blood 08/20/2018 4:50:4 Date Drawn 5 PM Arterial Blood pH 7.429 (Temp corrected) Arterial Blood 67.2 H pCO2 (Temp correct) Arterial Blood 99.6 pO2 (Temp corrected) Arterial Blood 43.5 *H HCO3 Arterial Blood 16.2 H Base Excess Arterial Blood 97.4 Oxygen Saturation Harsha Test N/A Arterial Blood LB Gas Puncture Site Arterial 0.3 Blood Carboxyhemo globin Arterial Blood 0.3 Methemoglobin Blood Gas A-a O2 13.4 Differential Oxyhemoglobin 96.8 Percent Blood Gas 37.0 Temperature Blood Gas NASAL CANNULA Modality FiO2 27.0 Blood Gas Critical Value DAVID HEREDIA Read Back Blood Gas [facility] Notified Whom Blood Gas 08/20/2018 5:01:2 Notified Time 3 PM Test 08/21/18 08:32 Bedside Glucose 103 Medications Medication Current Medications IV Flush (NS 3 ml) 3 ml PER PROTOCOL IV ; Start 08/08/18 at 00:00 Nitroglycerin (Nitroglycerin (Sl Tab) 0.4 Mg) 1 tab Q5M PRN SL .CHEST PAIN; Start 08/08/18 at 00:00 Acetaminophen (Tylenol Tab) 650 mg Q6H PRN PO .PAIN 1-3 OR TEMP Last administered on 08/21/18at 06:00; Admin Dose 650 MG; Start 08/08/18 at 00:00 Ipratropium [place] (Atrovent 0.02% (Neb)) 0.5 mg Q2H RESP THERAPY PRN NEB SHORTNESS OF BREATH Last administered on 08/16/18 00:01; Admin Dose 0.5 MG; Start 08/08/18 at 00:00 Diagnostic Test (Pha) (Accu-Chek) 1 ea 02 XX Last administered on 08/15/18at 01:48; Admin Dose 1 EA; Start 08/09/18 at 02:00 Insulin Aspart (Novolog Insulin Pen) NOVOLOG *MILD* ALGORITHM WITH MEALS BEDTIME SC Last administered on 08/20/18at 12:27; Admin Dose 3 UNIT; Start 08/08/18 at 12:00 Miscellaneous Information 1 ea NOTE XX ; Start 08/08/18 at 11:30 Glucose (Glutose) 15 gm Q15M PRN PO DECREASED GLUCOSE; Start 08/08/18 at 11:30 Glucose (Glutose) 22.5 gm Q15M PRN PO DECREASED GLUCOSE; Start 08/08/18 at 11:30 Dextrose (D50w Syringe) 25 ml Q15M PRN IV DECREASED GLUCOSE; Start 08/08/18 at 11:30 Dextrose (D50w Syringe) 50 ml Q15M PRN IV DECREASED GLUCOSE; Start 08/08/18 at 11:30 Glucagon (Glucagen) 1 mg Q15M PRN IM DECREASED GLUCOSE; Start 08/08/18 at 11:30 Glucose (Glutose) 15 gm Q15M PRN BUCCAL DECREASED GLUCOSE; Start 08/08/18 at 11:30 Atorvastatin Calcium (Lipitor) 80 mg QHS PO Last administered on 08/20/18at 20:11; Admin Dose 80 MG; Start 08/08/18 at 21:00 Metoprolol Tartrate (Lopressor) 100 mg BID PO Last administered on 08/21/18at 09:11; Admin Dose 100 MG; Start 08/08/18 at 14:00 Rivaroxaban (Xarelto) 20 mg WITH DINNER PO Last administered on 08/20/18 17:51; Admin Dose 20 MG; Start 08/08/18 at 18:00 Montelukast Sodium (Singulair) 10 mg HS PO Last administered on 08/20/18 20:11; Admin Dose 10 MG; Start 08/11/18 at 13:30 Metformin HCl (Glucophage) 1,000 mg WITH BREAKFAST DINNE PO Last administered on 08/21/18 09:10; Admin Dose 1,000 MG; Start 08/14/18 at 18:00 Insulin Aspart (Novolog Insulin Pen) 15 unit WITH MEALS SC Last administered on 08/21/18 09:03; Admin Dose 15 UNIT; Start 08/15/18 at 18:00 Insulin Glargine (Lantus) 22 units BID SC Last administered on 08/21/18 09:04; Admin Dose 22 UNITS; Start 08/15/18 at 21:00 Lactobacillus Acidophilus/ Rhamnosus (Culturelle) 1 cap BID PO Last administered on 08/21/18 09:11; Admin Dose 1 CAP; Start 08/15/18 at 21:00 Docusate Sodium (Colace Liquid Cup) 100 mg DAILY PO Last administered on 08/21/18 09:11; Admin Dose 100 MG; Start 08/16/18 at 09:00 Guaifenesin/ Dextromethorphan (Robitussin Dm Liquid Cup) 10 ml Q4H PRN PO COUGH; Start 08/16/18 at 16:00 Magnesium Oxide (Mag-Ox 400) 400 mg BID PO Last administered on 08/21/18 09:11; Admin Dose 400 MG; Start 08/16/18 at 21:00 Lisinopril (Zestril) 2.5 mg DAILY PO Last administered on 08/21/18 09:11; Admin Dose 2.5 MG; Start 08/18/18 at 09:00 Diltiazem HCl (Cardizem Cd) 120 mg DAILY PO Last administered on 08/21/18 09:11; Admin Dose 120 MG; Start 08/18/18 at 09:00 Famotidine (Pepcid) 20 mg HS PO Last administered on 08/20/18 20:11; Admin Dos e 20 MG; Start 08/18/18 at 21:00 Nystatin (Nystatin Powder) 1 applic BID TOP Last administered on 08/21/18at 09:12; Admin Dose 1 APPLIC; Start 08/18/18 at 09:00 Furosemide (Lasix) 20 mg DAILY@0600 PO Last administered on 08/21/18at 06:01; Admin Dose 20 MG; Start 08/21/18 at 06:00 SREEDHAR HERNANDEZ MD August 21, 2018 10:26
[2018-08-21 14:46] VITALS: BP 125/72; PULSE 81; RESP 16
[2018-08-21] MEDS: RIVAROXABAN 20 MG TABLET PO SCH (17:40)
[2018-08-21 20:00] VITALS: BP 110/51; PULSE 97; RESP 18
[2018-08-21] MEDS: ATORVASTATIN 80 MG TAB PO SCH (20:57)
[2018-08-21] MEDS: MONTELUKAST 10 MG TAB PO SCH (20:57)
[2018-08-21] MEDS: FAMOTIDINE 20 MG TAB PO SCH (20:57)
[2018-08-22 02:00] VITALS: BP 120/76; PULSE 67; RESP 18
[2018-08-22] MEDS: ACCU-CHEK XX SCH (02:00)
[2018-08-22] MEDS: FUROSEMIDE 20 MG TAB PO SCH (05:49)
[2018-08-22] MEDS: INSULIN ASPART [NOVOLOG] 3 ML PEN SC SCH ×7 (08:00→21:00)
[2018-08-22 08:03] VITALS: BP 140/79; PULSE 82; RESP 18
[2018-08-22] MEDS: ACETAMINOPHEN 325 MG TAB PO PRN (08:38)
[2018-08-22] MEDS: DOCUSATE SODIUM 10 MG/ML (10ML CUP) PO SCH ×2 (08:39→08:56)
[2018-08-22] MEDS: DILTIAZEM (CD) 120 MG CAP PO SCH (08:39)
[2018-08-22] MEDS: MAGNESIUM OXIDE 400 MG TAB PO SCH ×2 (08:39→21:12)
[2018-08-22] MEDS: METOPROLOL 100 MG TAB PO SCH ×2 (08:40→21:12)
[2018-08-22] MEDS: LACTOBACILLUS RHAMNOSUS CAP PO SCH ×2 (08:40→21:00)
[2018-08-22] MEDS: LISINOPRIL 5 MG TAB PO SCH (08:40)
[2018-08-22] MEDS: INSULIN GLARGINE [LANTus] (100 UNITS/ML) SYG SC SCH ×2 (08:41→21:18)
[2018-08-22] MEDS: NYSTATIN 30 GM POWDER BTL TOP SCH ×2 (08:42→21:19)
[2018-08-22] MEDS: metFORMIN 500 MG TAB PO SCH ×2 (08:49→17:26)
[2018-08-22 14:09] VITALS: BP 124/58; PULSE 73; RESP 18
[2018-08-22] MEDS: RIVAROXABAN 20 MG TABLET PO SCH (17:25)
--- NOTE | 2018-08-22 18:32 | PN ---
Date/Time of Note Date/Time of Note DATE: 08/22/18 TIME: 18:30 Assessment/Plan VTE Prophylaxis Risk score (from Ns)>0 risk: 5 SCD applied (from Nsg): Yes Pharmacological prophylaxis: rivaroxaban Lines/Catheters IV Catheter Type (from [facility]): [place] [facility] Urinary Cath still in place: No Assessment/Plan Hospital Course SUBJECTIVE: Remains on low-flow O2. OBJECTIVE: Physical Exam General: Morbidly obese, 72 year-old female lying in bed in no apparent distress. HEENT: Normocephalic, atraumatic. Eyes: Anicteric sclerae, conjunctivae clear. ENT: Nasal septum midline, oral mucosa moist. Neck: Short and obese. Respiratory: Bilaterally diminished breath sounds. No use of accessory muscles of respiration. Cardiovascular: S1, S2 heard. Abdomen: Soft, nontender, and nondistended. Bowel sounds positive in all 4 quadrants. Genitourinary: Deferred. Extremities: No cyanosis, no clubbing, no edema. Peripheral pulses palpable. Neurologic: The patient is somnolent. Skin: Normal skin turgor. No skin rashes. Labs & Vitals per chart ASSESSMENT & PLAN 72-year-old female who is obese with developmental delay who was brought to the emergency room because of progressively worsening shortness of breath and was found to have underlying hypoxic and hypercapnic respiratory failure and was admitted to inpatient setting for further treatment and evaluation. 1. Acute respiratory failure. -Hypoxic and hypercapnic. -Status post therapeutic NIPPV. -Continue inhaled bronchodilators. -Being followed by pulmonology. 2. Atrial fibrillation. -Continue Cardizem. -On factor Xa inhibitors for therapeutic anticoagulation. 3. Diabetes mellitus. -Continue sliding scale patient insulin along with basal insulin. -Continue metformin. -Hemoglobin A1c 7.6. 4. Acute on chronic diastolic heart failure. -Continue diuresis while carefully monitoring renal function. 5. Pulmonary hypertension. -PA systolic pressure of 45 mmHg. -Continue supplemental oxygen. 6. Morbid obesity. -BMI more than 42 kg/m. 7. Microcytic, hypochromic anemia. -Monitor H&H closely. -Iron panel showing no significant iron deficiency. 8. Developmental delay. 9. Fluids, electrolytes, and nutrition. -Carbohydrate controlled diet. 10. DVT prophylaxis. -Factor Xa inhibitors. 11. Plan. -Continue current management. -Awaiting clinical improvement before discharging the patient. The patient was seen in collaboration with Dr. Barrett. Result Diagram: 08/22/18 0930 08/22/18 0930 Results 24hrs Laboratory Tests Test 08/21/18 20:56 08/22/18 08:34 08/22/18 09:30 08/22/18 12:34 Bedside Glucose 121 101 121 White Blood Count 7.9 Red Blood Count 4.52 Hemoglobin 10.6 L Hematocrit 35.8 L Mean Corpuscular 79.2 L Volume Mean Corpuscular 23.5 L Hemoglobin Mean Corpuscular 29.6 L Hemoglobin Concent Red Cell 19.8 H Distribution Width Platelet Count 315 Mean Platelet Volume 9.9 Immature 0.300 Granulocytes % Neutrophils % 69.7 Lymphocytes % 16.9 Monocytes % 9.7 Eosinophils % 2.8 Basophils % 0.6 Nucleated Red Blood 0.0 Cells % Immature 0.020 Granulocytes # Neutrophils # 5.5 Lymphocytes # 1.3 Monocytes # 0.8 Eosinophils # 0.2 Basophils # 0.1 Nucleated Red Blood 0.0 Cells # Sodium Level 140 Potassium Level 4.2 Chloride Level 92 L Carbon Dioxide Level 42 *H Anion Gap 6 Blood Urea Nitrogen 18 Creatinine 0.49 Est Glomerular > 60 Filtrat Rate mL/min Glucose Level 123 Calcium Level 9.3 Test 08/22/18 17:24 Bedside Glucose 134 Exam/Review of Systems Exam Vitals Vital Signs Date Temp Pulse Resp B/P (MAP) Pulse Ox O2 O2 Flow FiO2 Time Delivery Rate 08/22/18 2.0 15:01 08/22/18 98.5 73 18 124/58 95 Nasal 14:09 (80) Cannula Intake and Output 08/21/18 08/21/18 08/22/18 1515:00 23:00 07:00 IntakeIntake Total 240 ml 1600 ml BalanceBalance 240 ml 1600 ml Results Results 24hrs Laboratory Tests Test 08/21/18 20:56 08/22/18 08:34 08/22/18 09:30 08/22/18 12:34 Bedside Glucose 121 101 121 White Blood Count 7.9 Red Blood Count 4.52 Hemoglobin 10.6 L Hematocrit 35.8 L Mean Corpuscular 79.2 L Volume Mean Corpuscular 23.5 L Hemoglobin Mean Corpuscular 29.6 L Hemoglobin Concent Red Cell 19.8 H Distribution Width Platelet Count 315 Mean Platelet Volume 9.9 Immature 0.300 Granulocytes % Neutrophils % 69.7 Lymphocytes % 16.9 Monocytes % 9.7 Eosinophils % 2.8 Basophils % 0.6 Nucleated Red Blood 0.0 Cells % Immature 0.020 Granulocytes # Neutrophils # 5.5 Lymphocytes # 1.3 Monocytes # 0.8 Eosinophils # 0.2 Basophils # 0.1 Nucleated Red Blood 0.0 Cells # Sodium Level 140 Potassium Level 4.2 Chloride Level 92 L Carbon Dioxide Level 42 *H Anion Gap 6 Blood Urea Nitrogen 18 Creatinine 0.49 Est Glomerular > 60 Filtrat Rate mL/min Glucose Level 123 Calcium Level 9.3 Test 08/22/18 17:24 Bedside Glucose 134 Medications Medication Current Medications IV Flush (NS 3 ml) 3 ml PER PROTOCOL IV ; Start 08/08/18 at 00:00 Nitroglycerin (Nitroglycerin (Sl Tab) 0.4 Mg) 1 tab Q5M PRN SL .CHEST PAIN; Start 08/08/18 at 00:00 Acetaminophen (Tylenol Tab) 650 mg Q6H PRN PO .PAIN 1-3 OR TEMP Last adm inistered on 08/22/18at 08:38; Admin Dose 650 MG; Start 08/08/18 at 00:00 Ipratropium [place] (Atrovent 0.02% (Neb)) 0.5 mg Q2H RESP THERAPY PRN NEB SHORTNESS OF BREATH Last administered on 08/16/18at 00:01; Admin Dose 0.5 MG; Start 08/08/18 at 00:00 Diagnostic Test (Pha) (Accu-Chek) 1 ea 02 XX Last administered on 08/15/18at 01:48; Admin Dose 1 EA; Start 08/09/18 at 02:00 Insulin Aspart (Novolog Insulin Pen) NOVOLOG *MILD* ALGORITHM WITH MEALS BEDTIME SC Last administered on 08/21/18at 12:33; Admin Dose 1 UNIT; Start 08/08/18 at 12:00 Miscellaneous Information 1 ea NOTE XX ; Start 08/08/18 at 11:30 Glucose (Glutose) 15 gm Q15M PRN PO DECREASED GLUCOSE; Start 08/08/18 at 11:30 Glucose (Glutose) 22.5 gm Q15M PRN PO DECREASED GLUCOSE; Start 08/08/18 at 11:30 Dextrose (D50w Syringe) 25 ml Q15M PRN IV DECREASED GLUCOSE; Start 08/08/18 at 11:30 Dextrose (D50w Syringe) 50 ml Q15M PRN IV DECREASED GLUCOSE; Start 08/08/18 at 11:30 Glucagon (Glucagen) 1 mg Q15M PRN IM DECREASED GLUCOSE; Start 08/08/18 at 11:30 Glucose (Glutose) 15 gm Q15M PRN BUCCAL DECREASED GLUCOSE; Start 08/08/18 at 11 :30 Atorvastatin Calcium (Lipitor) 80 mg QHS PO Last administered on 08/21/18 20:57; Admin Dose 80 MG; Start 08/08/18 at 21:00 Metoprolol Tartrate (Lopressor) 100 mg BID PO Last administered on 08/22/18 08:40; Admin Dose 100 MG; Start 08/08/18 at 14:00 Rivaroxaban (Xarelto) 20 mg WITH DINNER PO Last administered on 08/22/18 17:25; Admin Dose 20 MG; Start 08/08/18 at 18:00 Montelukast Sodium (Singulair) 10 mg HS PO Last administered on 08/21/18 20:57; Admin Dose 10 MG; Start 08/11/18 at 13:30 Metformin HCl (Glucophage) 1,000 mg WITH BREAKFAST DINNE PO Last administered on 08/22/18 17:26; Admin Dose 1,000 MG; Start 08/14/18 at 18:00 Insulin Aspart (Novolog Insulin Pen) 15 unit WITH MEALS SC Last administered on 08/22/18 17:28; Admin Dose 15 UNIT; Start 08/15/18 at 18:00 Insulin Glargine (Lantus) 22 units BID SC Last administered on 08/22/18 08:41; Admin Dose 22 UNITS; Start 08/15/18 at 21:00 Lactobacillus Acidophilus/ Rhamnosus (Culturelle) 1 cap BID PO Last administered on 08/22/18 08:40; Admin Dose 1 CAP; Start 08/15/18 at 21:00 Docusate Sodium (Colace Liquid Cup) 100 mg DAILY PO Last administered on 08/21/18 09:11; Admin Dose 100 MG; Start 08/16/18 at 09:00 Guaifenesin/ Dextromethorphan (Robitussin Dm Liquid Cup) 10 ml Q4H PRN PO COUGH; Start 08/16/18 at 16:00 Magnesium Oxide (Mag-Ox 400) 400 mg BID PO Last administered on 08/22/18 08:39; Admin Dose 400 MG; Start 08/16/18 at 21:00 Lisinopril (Zestril) 2.5 mg DAILY PO Last administered on 08/22/18 08:40; Adm in Dose 2.5 MG; Start 08/18/18 at 09:00 Diltiazem HCl (Cardizem Cd) 120 mg DAILY PO Last administered on 08/22/18 08:39; Admin Dose 120 MG; Start 08/18/18 at 09:00 Famotidine (Pepcid) 20 mg HS PO Last administered on 08/21/18 20:57; Admin Dose 20 MG; Start 08/18/18 at 21:00 Nystatin (Nystatin Powder) 1 applic BID TOP Last administered on 08/22/18 08:42; Admin Dose 1 APPLIC; Start 08/18/18 at 09:00 Furosemide (Lasix) 20 mg DAILY@0600 PO Last administered on 08/22/18 05:49; Admin Dose 20 MG; Start 08/21/18 at 06:00 ALLYSON STACY NP August 22, 2018 18:32
[2018-08-22 20:00] VITALS: BP 127/60; PULSE 85; RESP 18
[2018-08-22] MEDS: FAMOTIDINE 20 MG TAB PO SCH (21:11)
[2018-08-22] MEDS: ATORVASTATIN 80 MG TAB PO SCH (21:12)
[2018-08-22] MEDS: MONTELUKAST 10 MG TAB PO SCH (21:14)
[2018-08-23] MEDS: ACCU-CHEK XX SCH (01:35)
[2018-08-23 02:00] VITALS: BP 120/57; PULSE 73; RESP 18
[2018-08-23] MEDS: FUROSEMIDE 20 MG TAB PO SCH (05:25)
[2018-08-23] MEDS: INSULIN ASPART [NOVOLOG] 3 ML PEN SC SCH ×6 (08:00→17:48)
[2018-08-23 08:05] VITALS: BP 139/81; PULSE 82; RESP 17
[2018-08-23] MEDS: INSULIN GLARGINE [LANTus] (100 UNITS/ML) SYG SC SCH (08:31)
[2018-08-23] MEDS: metFORMIN 500 MG TAB PO SCH ×2 (08:36→17:46)
[2018-08-23] MEDS: DILTIAZEM (CD) 120 MG CAP PO SCH (08:36)
[2018-08-23] MEDS: LACTOBACILLUS RHAMNOSUS CAP PO SCH (08:36)
[2018-08-23] MEDS: LISINOPRIL 5 MG TAB PO SCH (08:37)
[2018-08-23] MEDS: MAGNESIUM OXIDE 400 MG TAB PO SCH (08:38)
[2018-08-23] MEDS: DOCUSATE SODIUM 10 MG/ML (10ML CUP) PO SCH (08:38)
[2018-08-23] MEDS: METOPROLOL 100 MG TAB PO SCH (08:38)
[2018-08-23] MEDS: NYSTATIN 30 GM POWDER BTL TOP SCH (08:39)
[2018-08-23 14:00] VITALS: BP 98/60; PULSE 63; RESP 18
--- NOTE | 2018-08-23 15:32 | PDOCDIS ---
Discharge Instructions CONDITION [id number] Patient Condition: [id number] Stable HOME CARE INSTRUCTIONS: [id number] Special Diet: [id number] Carbohydrate controlled. FOLLOW UP/APPOINTMENTS Follow-up Plan Follow-up with your PCP in 1 week. OTHER ORDERS: Other Orders: 1. Resume home medications. 2. Take a low carbohydrate diet. 3. Resume pre-hospitalization activities. 4. Please follow-up with your primary care physician in 1 week. ALLYSON STACY NP August 23, 2018 15:32
[2018-08-23] MEDS: RIVAROXABAN 20 MG TABLET PO SCH (17:46)
--- NOTE | 2018-08-23 18:52 | DS ---
Date/Time of Note Date/Time of Note DATE: 08/23/18 TIME: 18:49 Discharge Summary Admission/Discharge Info Admit Date/Time Aug 07, 2018 at 22:47 Discharge Date/Time Discharge Diagnosis 1. Acute respiratory failure. Hypoxic and hypercapnic. 2. Atrial fibrillation. 3. Diabetes mellitus. Hemoglobin A1c 7.6. 4. Acute on chronic diastolic heart failure. 5. Pulmonary hypertension. PA systolic pressure of 45 mmHg. 6. Morbid obesity. BMI more than 42 kg/m. 7. Microcytic, hypochromic anemia. 8. Developmental delay. Patient Condition: Stable Consults 1. Bharath Olivas MD, Pulmonary. 2. Andrei Soto MD, Cardiology. Procedures 2D Echocardiogram Conclusions: There is mild enlargement of left atrium. Normal left ventricular systolic function. Normal left ventricular cavity size. Mild concentric left ventricular hypertrophy. Ejection fraction is visually estimated at 60 %. Abnormal Diastolic Function. Normal appearance and function of the mitral valve with trace physiologic regurgitation. Normal appearance of the aortic valve. No significant aortic stenosis or insufficiency. Normal appearance of the tricuspid valve. Estimated peak PA systolic pressure 45 mmHg. There is mild tricuspid regurgitation. Dilated IVC without respiratory collapse consistent with elevated right atrial pressure. suboptimal study. Chest CT IMPRESSION: 1. Bilateral bronchial wall thickening and areas of air trapping are seen, suggestive of bronchitis / bronchiolitis. 2. Mild cardiomegaly. Coronary arterial and aortic atherosclerotic calcifications. 3. No evidence of mass, lymphadenopathy, or acute infiltrate. 4. Hepatic steatosis. Hx of Present Illness This is a 72-year-old female who is obese with developmental delay who was brought to the emergency room because of progressively worsening shortness of breath and was found to have underlying hypoxic and hypercapnic respiratory failure and was admitted to inpatient setting for further treatment and evaluation. Hospital Course The patient was maintained on noninvasive positive pressure ventilation. Pulmonology consult was obtained. Initially, the patient was given antimicrobial therapy. However, this was later discontinued since the patient did not have any evidence of any infectious process. The patient did not have any febrile illness. The patient's minimal leukocytosis that was present on admission was resolved. The patient was gradually weaned off NIPPV and was weaned to low flow oxygen. The patient continued to be hypoxic on room air. Therefore, the patient will get home oxygen upon discharge. The patient has underlying atrial fibrillation and the patient was continued on Cardizem for rate control. She was maintained on factor Xa inhibitors for therapeutic anticoagulation for stroke prophylaxis. She has underlying diabetes mellitus. The patient's hemoglobin A1c was found to be 7.6. She was maintained on sliding scale insulin along with basal insulin. She was noticed to have acute on chronic diastolic heart failure. The patient was maintained on diuresis. The patient was being followed by cardiology too. The patient also had evidence of pulmonary hypertension as noticed with a PA systolic pressure 45 mmHg. The patient was maintained on supplemental oxygen and diuretic therapy along with calcium channel blockers. The patient is morbidly obese with a BMI of more than 42 kg/m. The patient probably has underlying obstructive sleep apnea and will benefit from outpatient polysomnography. The patient was also noticed to have microcytic, hypochromic anemia. The patient's iron panel was not showing any significant iron deficiency. The patient is developmentally delayed. The patient has good family support and has a full-time caregiver at home. Therefore, the patient will be discharged home with a caregiver while arranging supplemental oxygen/home O2. The patient had a relatively longer hospital course because of the slow improvement in the patient's clinical condition. Discharge Instructions 1. Resume home medications. 2. Take a low carbohydrate diet. 3. Resume pre-hospitalization activities. 4. Please follow-up with your primary care physician in 1 week. The patient's family verbalized understanding of the discharge instructions. At this time I would like to thank all the consultants for seeing the patient and providing clinical recommendations. The patient was seen in collaboration with Dr. Barrett. Home Meds Reported Medications Insulin Isophan/Regular (Humulin 70/30) 100 Units/Ml Susp, 40 UNIT SC AC BREAKFAST DINNER, EA 08/08/18 Metoprolol Tartrate* (Lopressor*) 100 Mg Tablet, 100 MG PO BID, #60 TAB 08/08/18 Hydralazine Hcl* (Hydralazine Hcl*) 25 Mg Tab, 25 MG PO BID, #60 TAB 08/08/18 Metformin Hcl* (Metformin Hcl*) 1,000 Mg Tablet, 1000 MG PO WITH BREAKFAST DINNE, #60 TAB 08/08/18 Atorvastatin* (Atorvastatin*) 80 Mg Tablet, 80 MG PO QHS, #30 TAB 08/08/18 Esomeprazole Mag Trihydrate (Nexium) 20 Mg Capsule.dr, 20 MG PO DAILY, #30 CAP 08/08/18 Furosemide* (Furosemide*) 20 Mg Tablet, 20 MG PO DAILY, #60 TAB 08/08/18 Amlodipine Besylate* (Norvasc*) 5 Mg Tablet, 5 MG PO DAILY, TAB 08/08/18 Rivaroxaban* (Xarelto*) 20 Mg Tablet, 20 MG PO WITH DINNER, TAB 08/08/18 Discontinued Reported Medications Losartan Potassium* (Losartan Potassium*) 100 Mg Tablet, 100 MG PO DAILY, TAB 08/08/18 Follow-up Plan Follow-up with your PCP in 1 week. Primary Care Provider Care Physician No Primary Time spent on discharge: > 30 minutes Pending Labs Laboratory Tests Test 08/22/18 21:02 08/23/18 05:24 08/23/18 08:29 08/23/18 12:19 Bedside 93 109 57 Glucose mg/dL (70-220) mg/dL (70-220) mg/dL (70-220) White Blood 8.5 Count 10^3/ul (4.8-1 0.8) Red Blood 4.23 Count 10^6/ul (4.20- 5.40) Hemoglobin 10.1 g/dl (12.0-16. 0) Hematocrit 33.5 % (37.0-47.0) Mean 79.2 Corpuscular fl (82.0-101.0 Volume ) Mean 23.9 Corpuscular pg (29.0-33.0) Hemoglobin Mean 30.1 Corpuscular g/dl (32.0-37. Hemoglobin Conc 0) ent Red Cell 19.5 Distribution % (11.5-14.5) Width Platelet Count 299 10^3/UL (140-4 15) Mean Platelet 10.2 Volume fl (7.4-10.4) Immature 0.400 Granulocytes % % (0.001-0.429 ) Neutrophils % 68.5 % (39.0-77.0) Lymphocytes % 17.2 % (15.0-51.0) Monocytes % 11.0 % (0.0-11.0) Eosinophils % 2.4 % (0.0-7.0) Basophils % 0.5 % (0.0-2.0) Nucleated Red 0.0 Blood Cells % /100WBC (0.0-0 .0) Immature 0.030 Granulocytes # 10^3/ul (0.0-0 .031) Neutrophils # 5.8 10^3/ul (1.6-7 .5) Lymphocytes # 1.5 10^3/ul (0.8-2 .9) Monocytes # 0.9 10^3/ul (0.3-0 .9) Eosinophils # 0.2 10^3/ul (0.0-0 .5) Basophils # 0.0 10^3/ul (0.0-0 .1) Nucleated Red 0.0 Blood Cells # 10^3/ul (0.0-0 .0) Sodium Level 138 mmol/L (135-14 4) Potassium 4.7 Level mmol/L (3.5-5. 1) Chloride Level 93 mmol/L (97-110 ) Carbon Dioxide 39 Level mmol/L (21-31) Anion Gap 6 (5-13) Blood Urea 23 Nitrogen mg/dl (7-20) Creatinine 0.51 mg/dl (0.44-1. 00) Est Glomerular > 60 Filtrat mL/min (>60) Rate mL/min Glucose Level 88 mg/dl (70-220) Calcium Level 9.2 mg/dl (8.4-10. 2) Phosphorus 4.5 Level mg/dl (2.5-4.9 ) Magnesium 1.8 Level mg/dl (1.7-2.5 ) Test 08/23/18 12:37 08/23/18 12:51 08/23/18 13:04 08/23/18 17:43 Bedside 72 104 92 114 Glucose mg/dL (70-220) mg/dL (70-220) mg/dL (70-220) mg/dL (70-220) ALLYSON STACY NP August 23, 2018 18:52
== END 2018-08-23 18:50 | disposition home health service (06) | DRG 291 ==
LOC: E/R 19:47 → 6WM 22:47 → PP2 08-18 00:37
PROVIDERS: ADMIT Internal Medicine; ATTEND Internal Medicine
PROC: 5A09557 Assistance with Respiratory Ventilation, Greater than 96 Consecutive Hours, Continuous Positive Airway Pressure (ICD-10-PCS; principal; 2018-08-07)
DX: I11.0 Hypertensive heart disease with heart failure (principal); J96.02 Acute respiratory failure with hypercapnia; J96.01 Acute respiratory failure with hypoxia; Z68.41 Body mass index [BMI] 40.0-44.9, adult; L03.116 Cellulitis of left lower limb; L03.115 Cellulitis of right lower limb; E66.2 Morbid (severe) obesity with alveolar hypoventilation; I50.33 Acute on chronic diastolic (congestive) heart failure; I48.91 Unspecified atrial fibrillation; I27.20 Pulmonary hypertension, unspecified; E11.9 Type 2 diabetes mellitus without complications; D50.8 Other iron deficiency anemias; R53.81 Other malaise; R62.50 Unspecified lack of expected normal physiological development in childhood; E88.81 Metabolic syndrome and other insulin resistance; Z79.01 Long term (current) use of anticoagulants
CPT/HCPCS: 36415; 36600; 71045; 71260; 76705; 80048; 80053; 80061; 80069; 80162; 80202; 82550; 82553; 82803; 82962; 83036; 83540; 83735; 83880; 84100; 84443; 84484; 85025; 93005; 93306; 93970; 94640; 94660; 94664; 96374; 97110; 97116; 97162; 97530; J0692; J1120; J1644; J1815; J1940; J1956; J2060; J2916; J3370; J3475; J7050; Q9967